=== PATIENT | male | born 1945 | race Caucasian/White ===

== ENCOUNTER → 2016-10-25 | Outpatient (CLI) | payer BC ==
[~2016-10-25] MED LIST: ALBUAER19 INH; ASPCH81X PO; ATEN-173 PO; ATOR-24 PO; CETI10TA84 PO; CIPR1TAB11 PO; CLOP1TAB54 PO; DEXT30TA7 PO; DOCU100C31 PO; ERGO500037 PO; FOLI400T41 PO; GLIP2.5T11 PO; GLIP2.5T5 PO; LOSA100T2 PO; METF-384 PO; METR0.7536 EXT; METR1GEL3 TOP; NITR0.4S UT; NRN300 PO; PHEN-876 PO; POLY335019 PO; SYMIN160 INH; TAMS0.4C38 PO; TRAM-10 PO; [UNRECOGNIZED DRUG - CODE] EXT
--- NOTE | 2016-10-25 12:42 | DIAGNOSTIC IMAGING REPORT ---
KUB HISTORY: NEPHROLITHIASIS N20.0 COMPARISON: KUB 06/04/2016. FINDINGS: The bowel gas pattern is unremarkable. There are no dilated loops of small bowel to suggest an obstruction. The ureteral stents again removed. There is a 7 mm stone within the lower pole the left kidney. This has decreased in size. No definite right renal calculi identified. Of note, the right renal shadow is partially obscured by overlying bowel gas. No ureteral calculi. Calcifications in the deep pelvis likely represent phleboliths. No pneumoperitoneum or pneumatosis. IMPRESSION: 1. Decrease in size in the 7 mm stone within the left kidney. 2. No definite right renal or ureteral calculi identified. Electronically signed by: Santino Del Cid M.D. 10/25/2016 12:41 PM Dictated Date/Time: 10/25/2016 12:38 PM
== END | disposition home or self-care (01) ==
LOC: C.RAD 12:02
PROVIDERS: ATTEND Urology
DX: N20.0 Calculus of kidney (principal)

== ENCOUNTER → 2016-10-26 | Outpatient (CLI) | payer BC | END | disposition home or self-care (01) | LOC: C.LAB 09:07 | PROVIDERS: ATTEND Nurse Practitioner Family | DX: Z11.59 Encounter for screening for other viral diseases (principal); R31.0 Gross hematuria ==

== ENCOUNTER → 2016-10-28 | Outpatient (CLI) | payer BC ==
--- NOTE | 2016-10-28 11:30 | DIAGNOSTIC IMAGING REPORT ---
RENAL ULTRASOUND CLINICAL HISTORY: Gross hematuria. COMPARISON STUDY: Renal ultrasound May 25, 2016, CT of the abdomen and pelvis June 03, 2016 and KUB October 25, 2016. TECHNIQUE: Sonography of the kidneys and the urinary bladder was performed. FINDINGS: Right kidney measures 11.6 x 4.9 x 5.2 cm and the left measures 12 x 6 x 5.8 cm. There is no hydronephrosis. Bilateral renal calculi are noted, the largest of which is a left-sided calculus that measures approximately 8 mm. There is fatty infiltration of the liver. Both ureteral jets were identified. A 3 mm calcification along the left posterior lateral wall of the bladder probably reflects a phlebolith as shown on prior CT. No renal mass is identified sonography. IMPRESSION: 1. No hydronephrosis. 2. Bilateral nephrolithiasis. 3. 3 mm calcification along the left posterior lateral aspect of the bladder which likely reflects a phlebolith rather than distal ureteral calculus. Electronically signed by: Bharath Turner M.D. 10/28/2016 11:29 AM Dictated Date/Time: 10/28/2016 11:26 AM
== END | disposition home or self-care (01) ==
LOC: C.ULTRBC 10:41
PROVIDERS: ATTEND Urology
DX: R31.0 Gross hematuria (principal)

== ENCOUNTER → 2016-11-10 | Outpatient (CLI) | payer BC ==
--- NOTE | 2016-11-10 14:26 | DIAGNOSTIC IMAGING REPORT ---
ABDOMEN AND PELVIS CT WITHOUT CONTRAST CT DOSE: 1102.46 mGycm HISTORY: Nephrolithiasis. Hematuria. Recent lithotripsy. TECHNIQUE: Multiaxial CT images of the abdomen and pelvis were performed without the use of intravenous and oral contrast according to the standard department stone protocol. COMPARISON STUDY: Abdomen and pelvis CT 06/03/2016. FINDINGS: There is a punctate nonobstructing stone within the upper pole of the right kidney. There are 3 nonobstructing stones within the left kidney with the largest measuring 7 mm. These have decreased in number compared to the prior study. The ureteral stents have been removed. No hydronephrosis. Normal bladder. The ureters are normal in course and caliber. Punctate calcified granuloma within the right middle lobe. There is also a calcified granuloma within the left lower lobe. There is a diverticulum at the second portion of the duodenum. Tiny fat-containing umbilical hernia. The gallbladder is contracted. Hepatic steatosis. There is a coarse calcification within the central liver. The unenhanced spleen, adrenal glands, and pancreas are unremarkable. No retroperitoneal lymphadenopathy. Suboptimal evaluation for bowel pathology due to the lack of intravenous and oral contrast. However, there is no definite bowel wall thickening or obstruction. Normal appendix. IMPRESSION: 1. Slight decrease in number of the bilateral renal calculi. Dominant 7 mm stone within the left kidney persists. 2. No ureteral stones or hydronephrosis. 3. Hepatic steatosis. 4. No definite bowel wall thickening or obstruction. 5. The bilateral ureteral stents again removed. Electronically signed by: Santino Del Cid M.D. 11/10/2016 2:25 PM Dictated Date/Time: 11/10/2016 2:17 PM
== END | disposition home or self-care (01) ==
LOC: C.CTS 13:51
PROVIDERS: ATTEND Urology
DX: N20.0 Calculus of kidney (principal); K76.0 Fatty (change of) liver, not elsewhere classified

== ENCOUNTER → 2017-01-19 | Outpatient (CLI) | payer BC | END | disposition home or self-care (01) | LOC: C.LAB1850 08:21 | PROVIDERS: ATTEND Urology | DX: Z00.00 Encounter for general adult medical examination without abnormal findings (principal); N40.0 Benign prostatic hyperplasia without lower urinary tract symptoms ==

== ENCOUNTER 2017-01-26 09:21 | Inpatient (IN) | payer BC, OTHER ==
[~2017-01-26] VITALS: Ht 180.3 cm; Wt 109.6 kg
[~2017-01-26 09:21] MED LIST changes: -GLIP2.5T5 PO; -METR0.7536 EXT; -NRN300 PO; -[UNRECOGNIZED DRUG - CODE] EXT
--- NOTE | 2017-01-26 09:43 | EMERGENCY ROOM VISIT NOTE ---
History Report prepared by Aby: Davis Bryant Under the Supervision of: Dr. Giancarlo Andrade D.O. First contact with patient: 09:33 Chief Complaint: STROKE SYMPTOMS Stated Complaint: RIGHT SIDE OF BODY NUMBNESS/TINGLING History of Present Illness The patient is a 71 year old male who presents to the Emergency Room with complaints of resolving stroke symptoms that started around 0 last night. He says that he started getting numbness in his fingers, which moved to the right side of his face. The numbness then moved into his tongue, and then moved down his right leg and toes. Per the patient's , the patient has had to use a cane to walk, and he normally walks without a cane. The patient says that his foot is not dragging, and he is just using the cane to be safe. The patient's notes that the patient's speech has been normal. This morning, the patient says that his numbness is not that bad. He denies any headaches, weakness, nausea, or vomiting. The patient notes that his blood pressure and blood sugars were fine last night. The patient called his primary care physician's office, and was recommended to be seen here for evaluation. He does have multiple sclerosis. The patient has no history of a stroke. He takes Glipizide, Metformin , and a blood thinner daily. Source of History: patient Onset: 1829 last night Position: other (global - stroke symptoms) Timing: other (resolving) Associated Symptoms: + numbness (right sided), No headache, No nausea, No vomiting, No weakness Note: Associated symptoms: Has had to use cane to walk since last night. Denies foot dragging, slurred speech. Review of Systems See HPI for pertinent positives & negatives. A total of 10 systems reviewed and were otherwise negative. Past Medical & Surgical Medical Problems: (1) Diabetes (2) Heart disease (3) Hypertension (4) Kidney disease Surgical Problems: (1) History of hernia repair (2) Previous back surgery Family History Cancer Diabetes mellitus Gallbladder disease Heart disease Hypertension Social History Smoking Status: Never Smoker Alcohol Use: occasionally Drug Use: none Marital Status: Housing Status: lives with significant other Occupation Status: unemployed Current/Historical Medications Scheduled Aspirin (Aspirin Chewable), 81 MG PO ON HOLD Atenolol (Tenormin), 25 MG PO QPM Atorvastatin (Lipitor), 40 MG PO HS Clopidogrel Bisulfate (Plavix), 75 MG PO ON HOLD Dextromethorphan-Guaifenesin (Mucinex Dm), 1 TAB PO PRN Ergocalciferol (Vitamin D 91250 Unit), 50,000 UNIT PO WK Erythromycin (Erythromycin), 1 APPLN EXT BID Folic Acid (Folvite), 800 MCG PO ON HOLD Glipizide-Metformin Hcl (Glipizide/Metformin Hcl), 1 TAB PO BID Losartan Potassium & Hydrochlo (Hyzaar), 1 TAB PO QAM Metronidazole (Topical) (Metronidazole), 1 APPLN EXT BID Nitroglycerin (Nitrostat), 0.4 MG UT PRN Allergies Coded Allergies: Iodinated Diagnostic Agents (Verified Allergy, Severe, ANAPHYLAXIS, ) [place] (Verified Allergy, Severe, SWELLING TONGUE SOB, 01/26/17) Simvastatin (Verified Adverse Reaction, Unknown, UNKNOWN, 01/26/17) Physical Exam Vital Signs Date Time Temp Pulse Resp B/P Pulse Ox O2 Delivery O2 Flow Rate FiO2 01/26/17 11:45 96 Room Air 01/26/17 11:39 146/88 01/26/17 10:15 57 18 164/90 01/26/17 09:37 64 01/26/17 09:24 36.6 85 18 161/91 96 Room Air Physical Exam GENERAL: Patient is awake, alert, and in no acute distress. Patient is resting comfortably and showing no signs of anxiety EYES: The conjunctivae are clear. The pupils are round and reactive. EARS, NOSE, MOUTH AND THROAT: The nose is without any evidence of any deformity. Mucous membranes are moist tongue is midline NECK: The neck is nontender and supple. No bruits noted to auscultation. RESPIRATORY: Normal respiratory effort is noted there is no evidence of wheezing rhonchi or rales CARDIOVASCULAR: Regular rate and rhythm noted there no murmurs rubs or gallops normal S1 normal S2 GASTROINTESTINAL: The abdomen is soft. Bowel sounds are present in all quadrants. Abdomen is nontender MUSCULOSKELETAL/EXTREMITIES: There is no evidence of gross deformity full range of motion is noted in the hips and shoulders SKIN: There is no obvious evidence of any rash. There are no petechiae, pallor or cyanosis noted. NEUROLOGIC: Patient awake, alert, oriented x3. Speech was mildly thick but understandable. Speech was at baseline according to significant other. No facial droop noted, blacking wheel tender strength was symmetric. No drift noted in upper extremities. Strength in lower extremities appeared symmetric. Medical Decision & Procedures ER Provider Diagnostic Interpretation: Radiology results as stated below per my review and radiologist interpretation: HEAD CT NONCONTRAST CT DOSE: 537.48 mGy.cm HISTORY: Mental status change Stroke TECHNIQUE: Multiaxial CT images of the head were performed without the use of intravenous contrast. Comparison: 03/11/2016 Findings: The paranasal sinuses and mastoid air cells are clear. Possible small subacute infarct posterior left frontal cortex. This measures no more 1 cm. Density characteristics otherwise are unremarkable throughout. Ventricular system is midline. There is no acute intracranial hemorrhage. Impression: Possible small subacute cortical infarct left posterior frontal lobe. No evidence for acute intracranial hemorrhage Electronically signed by: Nasir Fitzgerald M.D. 01/26/2017 10:03 AM Dictated Date/Time: 01/26/2017 10:01 AM SINGLE VIEW CHEST CLINICAL HISTORY: Strokelike symptoms. FINDINGS: An AP, portable, upright chest radiograph is compared to study dated 12/16/2015 and correlated with chest CT dated 12/26/2008. The examination is mildly degraded by portable technique and patient rotation. The heart is mildly enlarged. The pulmonary vasculature is noncongested. There is mild bibasilar atelectasis and elevation of the right hemidiaphragm. The lungs and pleural spaces are otherwise clear. No pneumothorax is seen. The bony thorax is grossly intact. IMPRESSION: Mild cardiac enlargement with no acute cardiopulmonary abnormality. Electronically signed by: Eugenio Mason M.D. 01/26/2017 9:55 AM Dictated Date/Time: 01/26/2017 9:54 AM Laboratory Results 01/26/17 09:35 Red Blood Count 5.17, Mean Corpuscular Volume 87.2, Mean Corpuscular Hemoglobin 29.4, Mean Corpuscular Hemoglobin Concent 33.7, Mean Platelet Volume 11.1, Neutrophils (%) (Auto) 47.9, Lymphocytes (%) (Auto) 39.9, Monocytes (%) (Auto) 8.9, Eosinophils (%) (Auto) 2.9, Basophils (%) (Auto) 0.3, Neutrophils # (Auto) 3.62, Lymphocytes # (Auto) 3.01, Monocytes # (Auto) 0.67, Eosinophils # (Auto) 0.22, Basophils # (Auto) 0.02 01/26/17 09:35 Test 01/26/17 09:35 White Blood Count 7.55 K/uL (4.8-10.8) Red Blood Count 5.17 M/uL (4.7-6.1) Hemoglobin 15.2 g/dL (14.0-18.0) Hematocrit 45.1 % (42-52) Mean Corpuscular Volume 87.2 fL (80-100) Mean Corpuscular Hemoglobin 29.4 pg (25-34) Mean Corpuscular Hemoglobin Concent 33.7 g/dl (32-36) Platelet Count 218 K/uL (130-400) Mean Platelet Volume 11.1 fL (7.4-10.4) Neutrophils (%) (Auto) 47.9 % Lymphocytes (%) (Auto) 39.9 % Monocytes (%) (Auto) 8.9 % Eosinophils (%) (Auto) 2.9 % Basophils (%) (Auto) 0.3 % Neutrophils # (Auto) 3.62 K/uL (1.4-6.5) Lymphocytes # (Auto) 3.01 K/uL (1.2-3.4) Monocytes # (Auto) 0.67 K/uL (0.11-0.59) Eosinophils # (Auto) 0.22 K/uL (0-0.5) Basophils # (Auto) 0.02 K/uL (0-0.2) RDW Standard Deviation 44.4 fL (36.4-46.3) RDW Coefficient of Variation 13.8 % (11.5-14.5) Immature Granulocyte % (Auto) 0.1 % Immature Granulocyte # (Auto) 0.01 K/uL (0.00-0.02) Erythrocyte Sedimentation Rate 6 mm/hr (0-14) Prothrombin Time 10.3 SECONDS (9.0-12.0) Prothromb Time International Ratio 1.0 (0.9-1.1) Activated Partial Thromboplast Time 26.5 SECONDS (21.0-31.0) Partial Thromboplastin Ratio 1.0 Anion Gap 5.0 mmol/L (3-11) Est Creatinine Clear Calc Drug Dose 69.9 ml/min Estimated GFR () 71.1 Estimated GFR (Non- 61.3 BUN/Creatinine Ratio 16.0 (10-20) Estimated Average Glucose 169 mg/dl Hemoglobin A1c 7.5 % (4.5-5.6) Calcium Level 9.1 mg/dl (8.5-10.1) Total Bilirubin 0.7 mg/dl (0.2-1) Direct Bilirubin 0.2 mg/dl (0-0.2) Aspartate Amino Transf (AST/SGOT) 38 U/L (15-37) Alanine Aminotransferase (ALT/SGPT) 61 U/L (12-78) Alkaline Phosphatase 74 U/L (45-117) Total Creatine Kinase 216 U/L (39-308) Creatine Kinase MB 5.0 ng/ml (0.5-3.6) Creatine Kinase MB Ratio 2.3 (0-3.0) Troponin I < 0.015 ng/ml (0-0.045) Total Protein 7.9 gm/dl (6.4-8.2) Albumin 4.4 gm/dl (3.4-5.0) Laboratory results per my review. Medications Administered Medications (Trade) Dose Ordered Sig/Ronak Route Start Time Stop Time Status Last Admin Dose Admin Sodium Chloride (Nss 1000ml) 1,000 ml @ 50 mls/hr Q20H IV 01/26/17 09:35 02/25/17 09:34 01/26/17 14:42 50 MLS/HR ECG Indication: other (stroke symptoms) Rate (beats per minute): 60 Rhythm: normal sinus Findings: no ectopy, other (no acute ST segment abnormalities) Change: no significant change (from August 24 of last year) ED Course 0935: Ordered NSS 1000 ml @ 50 mls/hr IV. 0936: The patient was evaluated in room A3. A complete history and physical examination were performed. 1033: I reevaluated the patient and he is resting comfortably. The patient verbally expressed understanding and agreement with the treatment plan. The patient will be evaluated for further treatment. 1036: I discussed the patient with Dr. Roman Carey [facility] [place] [employer]. He will evaluate the patient for further treatment. Medical Decision Prior records/ancillary studies reviewed and summarized above. Nursing notes reviewed. Additional history obtained from significant other. Differential diagnosis: Etiologies such as metabolic, infection, hypo/hyperglycemia, electrolyte abnormalities, cardiac sources, intracerebral event, toxicologic, neurologic, as well as others were entertained. The patient is a 71-year-old male who presented to the emergency department for an evaluation of right-sided numbness. The patient noticed last evening at approximately 1830 at the right side of his body starting to go numb. He denied any specific weakness but states that he needed help in his right sign. The patient on physical exam did not have extensive weakness is unilateral however his CAT scan showed an area which could be consistent with a subacute infarct in the distribution that would explain the patient's symptoms. I discussed the patient's laboratory and radiographic studies with him. He was treated with IV fluids. The patient has a history of present illness this is most likely secondary to a CVA and not likely due to his MS flare. I discussed this possibility with the patient. I discussed his case with the on-call [facility] hospitalist group. They've agreed to evaluate the patient in the emergency apartment for further management and disposition. Consults Time Called: 1030 Consulting Physician: Dr. Roman TERRAZAS church history professor Returned Call: 1036 I discussed the patient with Dr. Roman TERRAZAS church history professor. He will evaluate the patient for further treatment. Impression Primary Impression: CVA (cerebral vascular accident) Scribe Attestation The scribe's documentation has been prepared under my direction and personally reviewed by me in its entirety. I confirm that the note above accurately reflects all work, treatment, procedures, and medical decision making performed by me. Time Last Known Well 1830 last night Stroke t-PA Criteria Reviewed Does NOT meet criteria for t-PA Reason t-PA Not Given Treatment not indicated (symptoms presented outside of window) Departure Information Dispostion Being Evaluated By Hospitalist Referrals Dee Saldana DO (PCP) Patient Instructions My [facility] Problem Qualifiers Primary Impression: CVA (cerebral vascular accident) CVA mechanism: unspecified Qualified Codes: I63.9 - Cerebral infarction, unspecified
[2017-01-26 09:50] LABS: BASO % 0.3 %; BASO ABS # 0.02 K/uL (0-0.2); COMPLETE YES; EOS % 2.9 %; HEMATOCRIT 45.1 % (42-52); IG% 0.1 %; LYMPH % 39.9 %; LYMPH ABS # 3.01 K/uL (1.2-3.4); MEAN CELL VOLUME 87.2 fL (80-100); MEAN CORPUSCULAR HEMOGLOBIN 29.4 pg (25-34); MEAN CORPUSCULAR HGB CONC 33.7 g/dl (32-36); MEAN PLATELET VOLUME 11.1 fL (7.4-10.4); MONO % 8.9 %; NEUT % 47.9 %; PLATELET COUNT 218 K/uL (130-400); RED BLOOD COUNT 5.17 M/uL (4.7-6.1); WHITE BLOOD COUNT 7.55 K/uL (4.8-10.8)
[2017-01-26] MEDS: SODIUM CHLORIDE 0.9% 1000ML 1,000 ML IV SCH ×2 (09:55→14:42)
--- NOTE | 2017-01-26 09:56 | DIAGNOSTIC IMAGING REPORT ---
SINGLE VIEW CHEST CLINICAL HISTORY: Strokelike symptoms. FINDINGS: An AP, portable, upright chest radiograph is compared to study dated 12/16/2015 and correlated with chest CT dated 12/26/2008. The examination is mildly degraded by portable technique and patient rotation. The heart is mildly enlarged. The pulmonary vasculature is noncongested. There is mild bibasilar atelectasis and elevation of the right hemidiaphragm. The lungs and pleural spaces are otherwise clear. No pneumothorax is seen. The bony thorax is grossly intact. IMPRESSION: Mild cardiac enlargement with no acute cardiopulmonary abnormality. Electronically signed by: Eugenio Mason M.D. 01/26/2017 9:55 AM Dictated Date/Time: 01/26/2017 9:54 AM
[2017-01-26 10:02] LABS: PROTHROMBIN TIME (PATIENT) 10.3 SECONDS (9.0-12.0)
--- NOTE | 2017-01-26 10:05 | DIAGNOSTIC IMAGING REPORT ---
HEAD CT NONCONTRAST CT DOSE: 537.48 mGy.cm HISTORY: Mental status change Stroke TECHNIQUE: Multiaxial CT images of the head were performed without the use of intravenous contrast. Comparison: 03/11/2016 Findings: The paranasal sinuses and mastoid air cells are clear. Possible small subacute infarct posterior left frontal cortex. This measures no more 1 cm. Density characteristics otherwise are unremarkable throughout. Ventricular system is midline. There is no acute intracranial hemorrhage. Impression: Possible small subacute cortical infarct left posterior frontal lobe. No evidence for acute intracranial hemorrhage Electronically signed by: Nasir Fitzgerald M.D. 01/26/2017 10:03 AM Dictated Date/Time: 01/26/2017 10:01 AM
[2017-01-26 10:07] LABS: ALT/SGPT 61 U/L (12-78); AST/SGOT 38 U/L (15-37); BLOOD UREA NITROGEN 19 mg/dl (7-18); CALCIUM 9.1 mg/dl (8.5-10.1); CARBON DIOXIDE 31 mmol/L (21-32); CHLORIDE 107 mmol/L (98-107); GLUCOSE 152 mg/dl (70-99); POTASSIUM 3.9 mmol/L (3.5-5.1); SODIUM 143 mmol/L (136-145)
[2017-01-26 10:13] LABS: ALKALINE PHOSPHATASE 74 U/L (45-117); CKMB/CK RATIO 2.3 (0-3.0)
[2017-01-26] MEDS ORDERED: [UNRECOGNIZED DRUG - CODE] EXT (10:32)
[2017-01-26] MEDS ORDERED: GLIP2.5T5 PO (10:32)
[2017-01-26] MEDS ORDERED: METR0.7536 EXT (10:32)
[2017-01-26] MEDS ORDERED: ACETAMINOPHEN 325 MG TAB PO PRN (11:15)
[2017-01-26] MEDS ORDERED: PHARMACIST DISCHARGE MED REC CONSULT PRN (11:15)
[2017-01-26] MEDS ORDERED: MAGNESIUM HYDROXIDE SUSP 30 ML UDC PO PRN (11:15)
[2017-01-26] MEDS ORDERED: ONDANSETRON INJ 2 MG/ML 2 ML VIAL IV PRN (11:15)
[2017-01-26] MEDS ORDERED: NITROGLYCERIN 0.4 MG SL PER TAB CHARGE UT SCH (11:30)
[2017-01-26 11:45] VITALS: BP 154/76; PULSE 86; TEMP 36.8; O2SAT 96; BMI 30.7
--- NOTE | 2017-01-26 11:45 | History and Physical ---
History & Physical Date & Time of Service: January 26, 2017 at 11:24 Chief Complaint: Right Side Of Body Numbness/Tingling Primary Care Physician: Dee Saldana DO History of Present Illness Source: patient, spouse The patient is a 71 year old male with hx of MS, CAD with stent placed in circumflex in 2009, HTN, dyslipidemia and DM II who presents to the ER with complaints of numbness/tingliness down right arm and right leg and on right side of face that started yesterday evening. Pt reports no issues with swallowing or speech. No weakness, chest pain, shortness of breath, visual changes, N/V/D, fevers or chills. Pt reports numbness and tingliness persists still. Pt has no hx of stroke. Pt is on daily ASA and plavix. He ambulates with cane at home but once again states no weakness. Past Medical/Surgical History Medical Problems: (1) Diabetes Status: Chronic (2) Heart disease Status: Chronic (3) Hypertension Status: Chronic (4) Kidney disease Status: Chronic Surgical Problems: (1) History of hernia repair Status: Resolved (2) Previous back surgery Status: Resolved Family History Cancer Diabetes mellitus Gallbladder disease Heart disease Hypertension Social History Nonsmoker Does not drink Lives with Smoking Status: Never Smoker Smokeless Tobacco Use: No Alcohol Use: none Drug Use: none Marital Status: Housing status: lives with family Occupational Status: unemployed Immunizations History of Influenza Vaccine: Yes Influenza Vaccine Date: Jun 14, 2009 History of Tetanus Vaccine?: utd Tetanus Immunization Date: Jun 13, 2009 History of Pneumococcal: No Pneumococcal Date: Sep 26, 2009 History of Hepatitis B Vaccine: No Multi-Drug Resistant Organisms History of MDRO: No Allergies Coded Allergies: Iodinated Diagnostic Agents (Verified Allergy, Severe, ANAPHYLAXIS, ) Pax (Verified Allergy, Severe, SWELLING TONGUE SOB, 01/26/17) Simvastatin (Verified Adverse Reaction, Unknown, UNKNOWN, 01/26/17) Home Medications Scheduled Aspirin (Aspirin Chewable), 81 MG PO ON HOLD Atenolol (Tenormin), 25 MG PO QPM Atorvastatin (Lipitor), 40 MG PO HS Clopidogrel Bisulfate (Plavix), 75 MG PO ON HOLD Dextromethorphan-Guaifenesin (Mucinex Dm), 1 TAB PO PRN Ergocalciferol (Vitamin D 62209 Unit), 50,000 UNIT PO WK Erythromycin (Erythromycin), 1 APPLN EXT BID Folic Acid (Folvite), 800 MCG PO ON HOLD Glipizide-Metformin Hcl (Glipizide/Metformin Hcl), 1 TAB PO BID Losartan Potassium & Hydrochlo (Hyzaar), 1 TAB PO QAM Metronidazole (Topical) (Metronidazole), 1 APPLN EXT BID Nitroglycerin (Nitrostat), 0.4 MG UT PRN Review of Systems Constitutional: No chills, No fever Eyes: No eye pain, No worsening of vision ENT: No hearing loss, No unusual epistaxis Respiratory: No cough, No sputum, No wheezing Cardiovascular: No chest pain, No orthopnea Abdomen: No nausea, No pain, No vomiting Musculoskeletal: No muscle pain Genitourinary - Male: No dysuria, No hematuria, No urinary frequency Neurologic: + numbness/tingling (right sided), No memory loss, No paralysis Psychiatric: No anxiety, No depression symptoms Endocrine: No excessive thirst, No fatigue Integumentary: No itch, No rash Physical Exam Vital Signs Date Time Temp Pulse Resp B/P Pulse Ox O2 Delivery O2 Flow Rate FiO2 01/26/17 10:15 57 18 164/90 01/26/17 09:37 64 01/26/17 09:24 36.6 85 18 161/91 96 Room Air General Appearance: WD/WN, no apparent distress Head: normocephalic, atraumatic Eyes: normal inspection, PERRL Neck: supple, no adenopathy, thyroid normal, no JVD Respiratory/Chest: chest non-tender, lungs clear, normal breath sounds, no respiratory distress Cardiovascular: regular rate, rhythm, no edema, no gallop Abdomen/GI: normal bowel sounds, non tender, soft, no organomegaly Back: normal inspection, no CVA tenderness, no muscle spasm, normal range of motion Extremities/Musculoskelatal: normal inspection, no calf tenderness, normal capillary refill, no pedal edema Neurologic/Psych: automatic data processing planner II-XII nml as tested, alert, normal mood/affect, oriented x 3, + sensory deficit (periorally on right side of lip, down right arm and down right leg tingliness, decreased sensation) Skin: normal color, warm/dry, no rash Diagnostics Laboratory Results Results Past 24 Hours Test 01/26/17 09:35 01/26/17 11:14 Range/Units White Blood Count 7.55 4.8-10.8 K/uL Red Blood Count 5.17 4.7-6.1 M/uL Hemoglobin 15.2 14.0-18.0 g/dL Hematocrit 45.1 42-52 % Mean Corpuscular Volume 87.2 80-100 fL Mean Corpuscular Hemoglobin 29.4 25-34 pg Mean Corpuscular Hemoglobin Concent 33.7 32-36 g/dl Platelet Count 218 130-400 K/uL Mean Platelet Volume 11.1 7.4-10.4 fL Neutrophils (%) (Auto) 47.9 % Lymphocytes (%) (Auto) 39.9 % Monocytes (%) (Auto) 8.9 % Eosinophils (%) (Auto) 2.9 % Basophils (%) (Auto) 0.3 % Neutrophils # (Auto) 3.62 1.4-6.5 K/uL Lymphocytes # (Auto) 3.01 1.2-3.4 K/uL Monocytes # (Auto) 0.67 0.11-0.59 K/uL Eosinophils # (Auto) 0.22 0-0.5 K/uL Basophils # (Auto) 0.02 0-0.2 K/uL RDW Standard Deviation 44.4 36.4-46.3 fL RDW Coefficient of Variation 13.8 11.5-14.5 % Immature Granulocyte % (Auto) 0.1 % Immature Granulocyte # (Auto) 0.01 0.00-0.02 K/uL Prothrombin Time 10.3 9.0-12.0 SECONDS Prothromb Time International Ratio 1.0 0.9-1.1 Activated Partial Thromboplast Time 26.5 21.0-31.0 SECONDS Partial Thromboplastin Ratio 1.0 Sodium Level 143 136-145 mmol/L Potassium Level 3.9 3.5-5.1 mmol/L Chloride Level 107 98-107 mmol/L Carbon Dioxide Level 31 21-32 mmol/L Anion Gap 5.0 3-11 mmol/L Blood Urea Nitrogen 19 7-18 mg/dl Creatinine 1.20 0.60-1.40 mg/dl Est Creatinine Clear Calc Drug Dose 69.9 ml/min Estimated GFR () 71.1 Estimated GFR (Non- 61.3 BUN/Creatinine Ratio 16.0 10-20 Random Glucose 152 70-99 mg/dl Calcium Level 9.1 8.5-10.1 mg/dl Total Bilirubin 0.7 0.2-1 mg/dl Direct Bilirubin 0.2 0-0.2 mg/dl Aspartate Amino Transf (AST/SGOT) 38 15-37 U/L Alanine Aminotransferase (ALT/SGPT) 61 12-78 U/L Alkaline Phosphatase 74 45-117 U/L Total Creatine Kinase 216 39-308 U/L Creatine Kinase MB 5.0 0.5-3.6 ng/ml Creatine Kinase MB Ratio 2.3 0-3.0 Troponin I < 0.015 0-0.045 ng/ml Total Protein 7.9 6.4-8.2 gm/dl Albumin 4.4 3.4-5.0 gm/dl Impression Assessment and Plan Pt is 71 yo male with hx of MS, CAD with stent placed in circumflex in 2009, HTN , dyslipidemia, and DM II who presents with numbness and tingliness x 1 day on right arm and leg and down right side of face Numbness and tingliness possibly secondary to small subacute cortical infarct left posterior frontal lobe noted on CT head. Will need to obtain MRI/MRA head and neck as well in addition to ECHO. Will cont on ASA, statin and plavix at this time. Obtain lipid panel and HgA1c. Keep permissive HTN at this time. Will consult neurology. ?MS flare, will leave to neurology to initiate steroids if indicated. DM II will hold off on PO agents and utilize ISS. Obtain HgA1c at this time CAD with stent placed in circumflex in 2009, cont ASA, plavix, statin, hold of on antihypertensives HTN will hold off on antihypertensives. Allow for permissive HTN MS consult neurology as above Pt is FULL CODE
[2017-01-26] MEDS ORDERED: GLUCAGON FOR INJ 1 MG VIAL SQ PRN (12:00)
[2017-01-26] MEDS ORDERED: DEXTROSE 50% 50 ML SYR IV PRN (12:00)
[2017-01-26] MEDS ORDERED: GLUCOSE 40% GEL 15 GM TUBE PO PRN (12:00)
[2017-01-26] MEDS ORDERED: GLUCOSE 10 TABS/TUBE PO PRN (12:00)
[2017-01-26 12:42] LABS: ESTIMATED AVERAGE GLUCOSE 169 mg/dl; HA1C FLAG Normal (Normal)
[2017-01-26] MEDS ORDERED: GADAVIST IV PRN (13:15)
--- NOTE | 2017-01-26 13:20 | DIAGNOSTIC IMAGING REPORT ---
NECK MRA HISTORY: Right-sided numbness. Stroke TECHNIQUE: [id number] and gadolinium-enhanced MRA of the neck was performed both before and after the intravenous administration of contrast. All measurements were calculated based on NASCET criteria. COMPARISON STUDY: Carotid Doppler 03/26/2011. FINDINGS: The aortic arch and proximal great vessels are widely patent. There is no significant stenosis, occlusion, or dissection identified within the bilateral common carotid, internal carotid, or left vertebral arteries. Focal area of high-grade stenosis within the intracranial portion of the distal right vertebral artery. The cervical portion of the right vertebral artery is widely patent. IMPRESSION: No significant stenosis, occlusion, or dissection identified within the carotid or left vertebral arteries. Focal area of high-grade stenosis within the intracranial portion of the distal right vertebral artery. Electronically signed by: Santino Del Cid M.D. 01/26/2017 1:19 PM Dictated Date/Time: 01/26/2017 1:15 PM
--- NOTE | 2017-01-26 13:26 | DIAGNOSTIC IMAGING REPORT ---
Brain MRI WITH AND WITHOUT CONTRAST HISTORY: Right-sided numbness. Stroke TECHNIQUE: Multiplanar multisequence MRI of the brain was performed both before and after the intravenous administration of contrast. COMPARISON STUDY: Head CT 01/26/2017. Brain MRI 04/27/2013. FINDINGS: There is an 8 mm linear focus of restricted diffusion seen within the left thalamus. This is consistent with a small acute infarct. There are few scattered punctate foci of T2 hyperintensity seen within the periventricular white matter. These are nonspecific but favor mild microvascular ischemic change. Trace fluid within a few of the inferior mastoid air cells. The major vascular flow-voids at the skull base are well-maintained. The ventricles and sulci are within normal limits for age. No abnormal enhancement. IMPRESSION: 1. A small acute infarct within the left thalamus. 2. A few scattered punctate foci of nonspecific T2 hyperintensity within the periventricular white matter. These favor mild microvascular ischemic change. A demyelinating disease could also have a similar appearance but is considered less likely. Electronically signed by: Santino Del Cid M.D. 01/26/2017 1:25 PM Dictated Date/Time: 01/26/2017 1:19 PM
[2017-01-26 15:33] VITALS: BP 161/89; PULSE 54; TEMP 36.6; O2SAT 95
[2017-01-26 16:16] VITALS: Ht 180.3 cm; Wt 109.6 kg
[2017-01-26] MEDS: CLOPIDOGREL BISULFATE 75 MG TAB PO SCH (19:35)
[2017-01-26] MEDS: ASPIRIN 81 MG ECTAB PO SCH (19:35)
[2017-01-26] MEDS: ATORVASTATIN 40 MG TAB PO SCH (19:36)
[2017-01-26] MEDS: INSULIN ASPART 100 UNITS/ML 3 ML PEN SC SCH ×2 (19:38→20:58)
[2017-01-26 20:00] VITALS: O2SAT 94
[2017-01-26 20:28] VITALS: BP 162/82; PULSE 57; TEMP 36.4; O2SAT 94
[2017-01-27] VITALS (9 sets, daily range): BP systolic 125–162; BP diastolic 72–83; PULSE 53–66; TEMP 36.5–36.9; O2SAT 93–99
[2017-01-27 00:31] LABS: URINE APPEARANCE CLEAR (CLEAR); URINE BILIRUBIN NEG (NEG); URINE COLOR YELLOW; URINE EPITHELIAL CELL AUTO 0-5 /lpf (0-5); URINE NITRITE NEG (NEG); UROBILINOGEN NEG (NEG); ZZUR CULT IF INDIC CLEAN CATCH NO
[2017-01-27 00:50] LABS: MANUAL MICROSCOPIC REQUIRED? NO; REVIEW REQ? NO
[2017-01-27 07:00] LABS: BASO % 0.1 %; BASO ABS # 0.01 K/uL (0-0.2); COMPLETE YES; EOS % 3.4 %; HEMATOCRIT 44.7 % (42-52); IG% 0.1 %; LYMPH % 38.6 %; LYMPH ABS # 2.86 K/uL (1.2-3.4); MEAN CELL VOLUME 87.1 fL (80-100); MEAN CORPUSCULAR HEMOGLOBIN 28.1 pg (25-34); MEAN CORPUSCULAR HGB CONC 32.2 g/dl (32-36); MEAN PLATELET VOLUME 10.6 fL (7.4-10.4); NEUT % 49.8 %; PLATELET COUNT 217 K/uL (130-400); RED BLOOD COUNT 5.13 M/uL (4.7-6.1)
[2017-01-27 07:33] LABS: BUN/CREATININE RATIO 14.9 (10-20); CALCIUM 8.5 mg/dl (8.5-10.1); CREATININE 1.1 mg/dl (0.60-1.40)
[2017-01-27 07:37] LABS: CHOLESTEROL/HDL RATIO 6.2
--- NOTE | 2017-01-27 08:59 | Neurology Consultation ---
Neurology Consultation Date of Consultation: January 27, 2017. Attending Physician: Anurag Owens D.O. Primary Care Physician: Dee Saldana DO Reason for Consultation: stroke History of Present Illness Source: patient, hospital records 71 year old male with a chief complaint of numbness, entire right side, improving, began two nights ago, associated right leg/foot heaviness/feeling of weakness, resolved, no associated headache, vision change, or speech change. PMH DM, HTN, CAD, "MS" currently Rx'd ASA/Plavix Brain MRI reveals a small acute left thalamic infarct. Images reviewed. There is evidence of a moderate degree of chronic, scattered, white matter hyperintensities on T2/FLAIR sequences, quite nonspecific and certainly not suggestive of multiple sclerosis, especially in this age group. ECG, sinus bradycardia, 57 bpm Outpatient records reviewed including consult with Dr. Jin at [facility] regarding "MS" which was felt to be very unlikely. CSF analysis was completed at our institution in 2010. Although the results do reveal the presence of 5 gamma restriction bands not present in the corresponding serum, there is no elevation in CSF myelin basic protein or evidence of increased IgG synthesis. This finding was reviewed by Dr. Jin as well in his consultation. Past Medical/Surgical History Medical Problems: (1) CVA (cerebral vascular accident) Status: Acute (2) Intractable pain Status: Acute Family History DM, HTN Social History Smoking Status: Never smoker Smokeless Tobacco Use: No Alcohol Use: none Drug Use: none Marital Status: Housing Status: lives with significant other Occupation Status: unemployed Allergies Coded Allergies: Iodinated Diagnostic Agents (Verified Allergy, Severe, ANAPHYLAXIS, ) [place] (Verified Allergy, Severe, SWELLING TONGUE SOB, 01/26/17) Simvastatin (Verified Adverse Reaction, Unknown, UNKNOWN, 01/26/17) Current Inpatient Medications Current Inpatient Medications Medications (Trade) Dose Ordered Sig/Ronak Route Start Time Stop Time Status Last Admin Dose Admin Sodium Chloride (Nss 1000ml) 1,000 ml @ 50 mls/hr Q20H IV 01/26/17 09:35 02/25/17 09:34 01/26/17 14:42 50 MLS/HR Aspirin (Ecotrin Tab) 81 mg QAM PO 01/27/17 09:00 02/26/17 08:59 01/26/17 19:35 81 MG Miscellaneous Information (Pharmacist Discharge Med Rec Consult) 1 ea UD PRN N/A 01/26/17 11:15 02/25/17 11:14 Acetaminophen (Tylenol Tab) 650 mg Q4H PRN PO 01/26/17 11:15 02/25/17 11:14 Magnesium Hydroxide (Milk Of Magnesia Susp) 30 ml Q12H PRN PO 01/26/17 11:15 02/25/17 11:14 Ondansetron HCl (Zofran Inj) 4 mg Q6H PRN IV 01/26/17 11:15 02/25/17 11:14 Atorvastatin Calcium (Lipitor Tab) 40 mg HS PO 01/26/17 21:00 02/25/17 20:59 01/26/17 19:36 40 MG Clopidogrel Bisulfate (plAVix TAB) 75 mg DAILY PO 01/27/17 09:00 02/26/17 08:59 01/26/17 19:35 75 MG Nitroglycerin (Nitrostat Tab) 0.4 mg PRN UT 01/26/17 11:30 02/25/17 11:29 Insulin Aspart (novoLOG ASPART) SLIDING SCALE If C... ACHS SC 01/26/17 16:15 02/25/17 16:14 01/26/17 19:38 3 UNITS Glucose (Glucose 40% Gel) 15-30 GRAMS 15 GRAMS... UD PRN PO 01/26/17 12:00 02/25/17 11:59 Glucose (Glucose Chew Tab) 4-8 Tablets 4 Tabl... UD PRN PO 01/26/17 12:00 02/25/17 11:59 Dextrose (Dextrose 50% 50ML Syringe) 25-50ML OF 50% DW IV FOR... UD PRN IV 01/26/17 12:00 02/25/17 11:59 Glucagon (Glucagon Inj) 1 mg UD PRN SQ 01/26/17 12:00 02/25/17 11:59 Gadobutrol (Gadavist) 11 mmol UD PRN IV 01/26/17 13:15 01/30/17 13:14 Review of Systems A full 10 point review of systems was obtained from this patient with pertinent positives and negatives described in the history of present illness. All other systems are negative. Physical Exam Vital Signs (Past 24 Hrs): Date Time Temp Pulse Resp B/P Pulse Ox O2 Delivery O2 Flow Rate FiO2 01/27/17 08:07 36.9 56 18 140/83 96 01/27/17 04:00 96 Room Air 01/27/17 03:33 36.5 53 16 125/75 96 Nasal Cannula 2.0 01/27/17 00:03 36.5 56 16 156/77 98 Nasal Cannula 2.0 01/27/17 00:00 98 Nasal Cannula 2.0 01/26/17 20:28 36.4 57 18 162/82 94 Room Air 01/26/17 20:00 94 Room Air 01/26/17 16:00 Room Air 01/26/17 15:33 36.6 54 18 161/89 95 Room Air 01/26/17 11:45 36.8 86 18 154/76 96 Room Air 01/26/17 11:39 146/88 01/26/17 10:15 57 18 164/90 01/26/17 09:37 64 01/26/17 09:24 36.6 85 18 161/91 96 Room Air The patient is a well-developed, well-nourished, elderly male, no acute distress. He is alert and oriented to person place and time. Attention and concentration normal. Recent and remote memory intact. He is able to name objects and repeat phrases. Read simple text without difficulty. Fund of knowledge and vocabulary normal. Visual polanco full to confrontation. Pupils equal round reactive to light and accommodation. Eye movements normal. There is no nystagmus. Facial sensation intact bilaterally. There is no facial weakness or facial droop. Palate elevates to midline. Tongue protrudes to midline. Shoulder shrug and hearing intact bilaterally. Sensation is intact to light touch, temperature, vibration, and proprioception for all 4 limbs. I did not appreciate a hemisensory deficit at this time. Deep tendon reflexes are generally diminished, especially at the Achilles tendons. Plantar responses are silent. There is no dysmetria with finger to nose or heel to torre bilaterally. Ophthalmoscopic examination reveals normal-appearing optic nerves and posterior elements. No papilledema or hemorrhages. Carotid pulses normal bilaterally, no bruits to auscultation. Musculoskeletal examination reveals normal strength and tone for all 4 limbs. No atrophy. No abnormal movements. Gait and station normal. mild length dependent sensory loss and generally reduced DTR's, otherwise normal Laboratory Results Past 24 Hours: 01/27/17 06:35 Red Blood Count 5.13, Mean Corpuscular Volume 87.1, Mean Corpuscular Hemoglobin 28.1, Mean Corpuscular Hemoglobin Concent 32.2, Mean Platelet Volume 10.6, Neutrophils (%) (Auto) 49.8, Lymphocytes (%) (Auto) 38.6, Monocytes (%) (Auto) 8.0, Eosinophils (%) (Auto) 3.4, Basophils (%) (Auto) 0.1, Neutrophils # (Auto) 3.68, Lymphocytes # (Auto) 2.86, Monocytes # (Auto) 0.59, Eosinophils # (Auto) 0.25, Basophils # (Auto) 0.01 01/27/17 06:35 Test 01/26/17 09:35 01/27/17 00:05 01/27/17 00:40 01/27/17 06:35 Erythrocyte Sedimentation Rate 6 mm/hr (0-14) Prothrombin Time 10.3 SECONDS (9.0-12.0) Prothromb Time International Ratio 1.0 (0.9-1.1) Activated Partial Thromboplast Time 26.5 SECONDS (21.0-31.0) Partial Thromboplastin Ratio 1.0 Estimated Average Glucose 169 mg/dl Hemoglobin A1c 7.5 % (4.5-5.6) Total Bilirubin 0.7 mg/dl (0.2-1) Direct Bilirubin 0.2 mg/dl (0-0.2) Aspartate Amino Transf (AST/SGOT) 38 U/L (15-37) Alanine Aminotransferase (ALT/SGPT) 61 U/L (12-78) Alkaline Phosphatase 74 U/L (45-117) Total Creatine Kinase 216 U/L (39-308) Creatine Kinase MB 5.0 ng/ml (0.5-3.6) Creatine Kinase MB Ratio 2.3 (0-3.0) Total Protein 7.9 gm/dl (6.4-8.2) Albumin 4.4 gm/dl (3.4-5.0) Urine Color YELLOW Urine Appearance CLEAR (CLEAR) Urine pH 5.0 (4.5-7.5) Urine Specific [place] 1.010 (1.000-1.030) Urine Protein NEG (NEG) Urine Glucose (UA) NEG (NEG) Urine Ketones NEG (NEG) Urine Occult Blood TRACE (NEG) Urine Nitrite NEG (NEG) Urine Bilirubin NEG (NEG) Urine Urobilinogen NEG (NEG) Urine Leukocyte Esterase NEG (NEG) Urine WBC (Auto) 1-5 /hpf (0-5) Urine RBC (Auto) 0-4 /hpf (0-4) Urine Hyaline Casts (Auto) 0 /lpf (0-5) Urine Epithelial Cells (Auto) 0-5 /lpf (0-5) Urine Bacteria (Auto) NEG (NEG) Troponin I < 0.015 ng/ml (0-0.045) White Blood Count 7.40 K/uL (4.8-10.8) Red Blood Count 5.13 M/uL (4.7-6.1) Hemoglobin 14.4 g/dL (14.0-18.0) Hematocrit 44.7 % (42-52) Mean Corpuscular Volume 87.1 fL (80-100) Mean Corpuscular Hemoglobin 28.1 pg (25-34) Mean Corpuscular Hemoglobin Concent 32.2 g/dl (32-36) Platelet Count 217 K/uL (130-400) Mean Platelet Volume 10.6 fL (7.4-10.4) Neutrophils (%) (Auto) 49.8 % Lymphocytes (%) (Auto) 38.6 % Monocytes (%) (Auto) 8.0 % Eosinophils (%) (Auto) 3.4 % Basophils (%) (Auto) 0.1 % Neutrophils # (Auto) 3.68 K/uL (1.4-6.5) Lymphocytes # (Auto) 2.86 K/uL (1.2-3.4) Monocytes # (Auto) 0.59 K/uL (0.11-0.59) Eosinophils # (Auto) 0.25 K/uL (0-0.5) Basophils # (Auto) 0.01 K/uL (0-0.2) RDW Standard Deviation 43.5 fL (36.4-46.3) RDW Coefficient of Variation 13.6 % (11.5-14.5) Immature Granulocyte % (Auto) 0.1 % Immature Granulocyte # (Auto) 0.01 K/uL (0.00-0.02) Anion Gap 7.0 mmol/L (3-11) Est Creatinine Clear Calc Drug Dose 79.8 ml/min Estimated GFR () 79.0 Estimated GFR (Non- 68.1 BUN/Creatinine Ratio 14.9 (10-20) Calcium Level 8.5 mg/dl (8.5-10.1) Triglycerides Level 237 mg/dl (0-150) Cholesterol Level 179 mg/dl (0-200) HDL Cholesterol 29 mg/dl LDL Cholesterol, Calculated 103 mg/dl VLDL Cholesterol, Calculated 47 mg/dl Cholesterol/HDL Ratio 6.2 Test 01/27/17 07:14 Bedside Glucose 181 mg/dl (70-99) Impression Acute small left thalamic infarct. Improving right hemisensory loss. Prognosis good. This patient most likely does not have MS. Plan Continue current antiplatelet regimen. Patient has been on both aspirin and Plavix for quite some time and seems to be tolerating dual antiplatelet therapy well. I would not recommend starting therapy for multiple sclerosis as this diagnosis seems unlikely and has been placed in doubt by Dr. Olivo, an MS specialist, now retired, [facility]. I do not have any further specific recommendations for this patient. He may follow-up in neurology clinic for additional surveillance. Please contact me if I may be of further assistance.
[2017-01-27] MEDS ORDERED: ASPIRIN 81 MG CHEW PO SCH (09:00)
[2017-01-27] MEDS: INSULIN ASPART 100 UNITS/ML 3 ML PEN SC SCH ×4 (09:03→21:32)
[2017-01-27] MEDS: CLOPIDOGREL BISULFATE 75 MG TAB PO SCH (11:52)
[2017-01-27] MEDS: ASPIRIN 81 MG ECTAB PO SCH (11:52)
--- NOTE | 2017-01-27 12:40 | Progress Note ---
Subjective Date of Service: January 27, 2017. Subjective Pt evaluation today including: conversation w/ patient, conversation w/ family , physical exam, chart review, lab review, review of studies, review of inpatient medication list Pt resting comfortably in bed States right sided numbness about the same Worsening tingliness though this afternoon in extremities Not comfortable for discharge No acute events overnight Problem List Medical Problems: (1) CVA (cerebral vascular accident) Status: Acute (2) Intractable pain Status: Acute Review of Systems Constitutional: No chills, No fever, No sweats, No weight loss Eyes: No discharge, No eye pain, No redness, No worsening of vision ENT: No hearing loss, No nasal symptoms, No sore throat, No unusual epistaxis Respiratory: No cough, No sputum, No wheezing Cardiac: No chest pain, No orthopnea Abdomen: No diarrhea, No nausea, No pain, No vomiting Musculoskeletal: No calf pain, No joint pain, No muscle pain, No swelling Male : No dysuria, No incontinence, No slowing stream, No urinary frequency Neurologic: + numbness/tingling (bilateral hands, and bilateral legs), No memory loss, No paralysis, No weakness Psychiatric: No anhedonism, No anxiety, No depression symptoms Objective Vital Signs Date Time Temp Pulse Resp B/P Pulse Ox O2 Delivery O2 Flow Rate FiO2 01/27/17 12:08 36.8 66 18 144/72 99 01/27/17 08:07 36.9 56 18 140/83 96 01/27/17 08:00 Room Air 01/27/17 04:00 96 Room Air 01/27/17 03:33 36.5 53 16 125/75 96 Nasal Cannula 2.0 01/27/17 00:03 36.5 56 16 156/77 98 Nasal Cannula 2.0 01/27/17 00:00 98 Nasal Cannula 2.0 01/26/17 20:28 36.4 57 18 162/82 94 Room Air 01/26/17 20:00 94 Room Air 01/26/17 16:00 Room Air 01/26/17 15:33 36.6 54 18 161/89 95 Room Air Physical Exam General Appearance: WD/WN, no apparent distress Eyes: normal inspection, PERRL, EOMI, sclerae normal ENT: normal ENT inspection, hearing grossly normal, TMs normal, pharynx normal Neck: supple, no adenopathy, thyroid normal, no JVD Respiratory/Chest: chest non-tender, lungs clear, normal breath sounds, no respiratory distress Cardiovascular: regular rate, rhythm, no edema, no gallop, no JVD Abdomen: normal bowel sounds, non tender, soft, no organomegaly Extremities: normal range of motion, non-tender, normal inspection, no pedal edema Neurologic/Psychiatric: alert, normal mood/affect, oriented x 3, + sensory deficit (numbness and tingliness bilateral arms and legs) Laboratory Results Last 24 Hours Test 01/26/17 16:18 01/26/17 17:18 01/26/17 20:53 01/27/17 00:05 Bedside Glucose 141 mg/dl 124 mg/dl Troponin I < 0.015 ng/ml Urine Color YELLOW Urine Appearance CLEAR Urine pH 5.0 Urine Specific Wolf 1.010 Urine Protein NEG Urine Glucose (UA) NEG Urine Ketones NEG Urine Occult Blood TRACE Urine Nitrite NEG Urine Bilirubin NEG Urine Urobilinogen NEG Urine Leukocyte Esterase NEG Urine WBC (Auto) 1-5 /hpf Urine RBC (Auto) 0-4 /hpf Urine Hyaline Casts (Auto) 0 /lpf Urine Epithelial Cells (Auto) 0-5 /lpf Urine Bacteria (Auto) NEG Test 01/27/17 00:40 01/27/17 06:35 01/27/17 07:14 01/27/17 11:23 Troponin I < 0.015 ng/ml White Blood Count 7.40 K/uL Red Blood Count 5.13 M/uL Hemoglobin 14.4 g/dL Hematocrit 44.7 % Mean Corpuscular Volume 87.1 fL Mean Corpuscular Hemoglobin 28.1 pg Mean Corpuscular Hemoglobin Concent 32.2 g/dl Platelet Count 217 K/uL Mean Platelet Volume 10.6 fL Neutrophils (%) (Auto) 49.8 % Lymphocytes (%) (Auto) 38.6 % Monocytes (%) (Auto) 8.0 % Eosinophils (%) (Auto) 3.4 % Basophils (%) (Auto) 0.1 % Neutrophils # (Auto) 3.68 K/uL Lymphocytes # (Auto) 2.86 K/uL Monocytes # (Auto) 0.59 K/uL Eosinophils # (Auto) 0.25 K/uL Basophils # (Auto) 0.01 K/uL RDW Standard Deviation 43.5 fL RDW Coefficient of Variation 13.6 % Immature Granulocyte % (Auto) 0.1 % Immature Granulocyte # (Auto) 0.01 K/uL Sodium Level 143 mmol/L Potassium Level 4.0 mmol/L Chloride Level 108 mmol/L Carbon Dioxide Level 28 mmol/L Anion Gap 7.0 mmol/L Blood Urea Nitrogen 16 mg/dl Creatinine 1.10 mg/dl Est Creatinine Clear Calc Drug Dose 79.8 ml/min Estimated GFR () 79.0 Estimated GFR (Non- 68.1 BUN/Creatinine Ratio 14.9 Random Glucose 177 mg/dl Calcium Level 8.5 mg/dl Triglycerides Level 237 mg/dl Cholesterol Level 179 mg/dl HDL Cholesterol 29 mg/dl LDL Cholesterol, Calculated 103 mg/dl VLDL Cholesterol, Calculated 47 mg/dl Cholesterol/HDL Ratio 6.2 Bedside Glucose 181 mg/dl 179 mg/dl Assessment and Plan Pt is 71 yo male with hx of MS, CAD with stent placed in circumflex in 2009, HTN , dyslipidemia, and DM II who presents with numbness and tingliness x 1 day on right arm and leg and down right side of face Numbness and tingliness persisting from admission. Noted small cortical acute stroke in left posterior frontal lobe on MRI head. MRA neck No significant stenosis, occlusion, or dissection identified within the carotid or left vertebral arteries. Focal area of high-grade stenosis within the intracranial portion of the distal right vertebral artery. Awaiting ECHO. Cont on ASA, statin and plavix at this time. Neurology consulted, unlikely to have MS and can be discharged from their perspective, unfortunately nerve pain/tingliness worsened, will start on Neurontin DM II will hold off on PO agents and utilize ISS. HgA1c 7.5. Uncontrolled, will need to further manage as outpatient CAD with stent placed in circumflex in 2009, cont ASA, plavix, statin, hold of on antihypertensives to maintain permissive HTN . Stable HTN will hold off on antihypertensives. Allow for permissive HTN Pt is FULL CODE
[2017-01-27] MEDS ORDERED: NURSING VERBAL MED ORDER ONE (12:45)
[2017-01-27] MEDS ORDERED: GABAPENTIN 300 MG CAP PO ONE (13:15)
--- NOTE | 2017-01-27 14:55 | ECHOCARDIOGRAM REPORT ---
*NOTICE TO RECEIVING [employer] This information is strictly Confidential and protected under [place] law. [place] law prohibits you from making any further disclosure of this information unless further disclosure is expressly permitted by the written consent of the person to whom it pertains or is authorized by law. A general authorization for the release of medical or other information is not sufficient for this purpose. Hospital accepts no responsibility if the information is made available to any other person, INCLUDING THE PATIENT. Interpretation Summary * Name: BÁRBARA BRITT Study Date: 01/26/2017 04:37 PM BP: 146/88 mmHg * Patient Location: C.2T\S\E219\S\1 HR: 57 * : 1945 (M/d/yyyy) Gender: Male Height: 71 in * Age: 71 yrs Ethnicity: [place] Weight: 219 lb * Ordering Physician: Anurag Owens * Referring Physician: Self, Referred * Performed By: Padmini Balderas RDCS * * Reason For Study: Stroke * BSA: 2.2 m2 * Compared to prior study, there is no significant change. * No cardiac source of emboli noted. * -- Conclusions -- * Left ventricular systolic function is normal. * Grade I diastolic dysfunction, (abnormal relaxation pattern). Procedure Details * A complete two-dimensional transthoracic echocardiogram was performed (2D, M-mode, Doppler and color flow Doppler). * A saline contrast injection was performed to assess for cardiac shunting. * The injection was performed through an intravenous line in the right arm. * The attending nurse who injected the saline contrast was Venice Gagnon RN. * A total of 20 cc of agitated saline was given. Left Ventricle * The left ventricle is normal in size. * There is normal left ventricular wall thickness. * Ejection Fraction = 60-65%. * Left ventricular systolic function is normal. * Grade I diastolic dysfunction, (abnormal relaxation pattern). Right Ventricle * The right ventricle is normal in size and function. Atria * The left atrial size is normal. * Right atrial size is normal. Mitral Valve * The mitral valve is grossly normal. * There is trace mitral regurgitation. Tricuspid Valve * The tricuspid valve is not well visualized, but is grossly normal. * Significant tricuspid regurgitation is absent. Aortic Valve * Aortic valve sclerosis mild, without significant aortic valvular stenosis. * Left coronary cusp has focal calcification * No hemodynamically significant valvular aortic stenosis. * There is no significant aortic regurgitation. Great Vessels * The aortic root is normal size. Pericardium/Pleural * There is no pericardial effusion. MMode 2D Measurements and Calculations IVSd 0.97 cm LVIDd 4.3 cm LVIDs 3.0 cm LVPWd 1.2 cm IVS/LVPW 0.80 FS 31.4 % EDV(Teich) 84.5 ml ESV(Teich) 34.2 ml EF(Teich) 59.6 % EDV(cubed) 81.3 ml ESV(cubed) 26.2 ml EF(cubed) 67.8 % LV mass(C)d 163.7 grams LV mass(C)dI 74.7 grams/m\S\2 SV(Teich) 50.4 ml SI(Teich) 23.0 ml/m\S\2 SV(cubed) 55.1 ml SI(cubed) 25.1 ml/m\S\2 Ao root diam 3.5 cm Ao root area 9.4 cm\S\2 ACS 1.8 cm LA dimension 2.7 cm asc Aorta Diam 3.2 cm LA/Ao 0.77 LVOT diam 2.0 cm LVOT area 3.2 cm\S\2 LVAd ap4 30.0 cm\S\2 LVLd ap4 7.5 cm EDV(MOD-sp4) 96.0 ml EDV(sp4-el) 101.4 ml LVAs ap4 18.0 cm\S\2 LVLs ap4 6.9 cm ESV(MOD-sp4) 39.1 ml ESV(sp4-el) 39.8 ml EF(MOD-sp4) 59.3 % EF(sp4-el) 60.7 % LVAd ap2 24.2 cm\S\2 LVLd ap2 7.1 cm EDV(MOD-sp2) 70.4 ml EDV(sp2-el) 70.0 ml LVAs ap2 12.7 cm\S\2 LVLs ap2 5.7 cm ESV(MOD-sp2) 23.8 ml ESV(sp2-el) 24.1 ml EF(MOD-sp2) 66.2 % EF(sp2-el) 65.5 % LVLd %diff -6.30 % EDV(MOD-bp) 85.0 ml LVLs %diff -21.69 % ESV(MOD-bp) 33.2 ml EF(MOD-bp) 61.0 % SV(MOD-sp4) 56.9 ml SI(MOD-sp4) 26.0 ml/m\S\2 SV(MOD-sp2) 46.6 ml SI(MOD-sp2) 21.3 ml/m\S\2 SV(MOD-bp) 51.9 ml SI(MOD-bp) 23.7 ml/m\S\2 SV(sp4-el) 61.6 ml SI(sp4-el) 28.1 ml/m\S\2 SV(sp2-el) 45.9 ml SI(sp2-el) 20.9 ml/m\S\2 Doppler Measurements and Calculations MV E max melina 69.4 cm/sec MV A max melina 93.1 cm/sec MV E/A 0.74 MV dec time 0.35 sec Ao V2 max 150.8 cm/sec Ao max PG 9.1 mmHg Ao max PG (full) 3.9 mmHg AMI(V,A) 2.4 cm\S\2 AMI(V,D) 2.4 cm\S\2 LV V1 max PG 5.2 mmHg LV V1 max 114.0 cm/sec PA V2 max 165.6 cm/sec PA max PG 11.0 mmHg PA acc slope 789.5 cm/sec\S\2 PA acc time 0.09 sec PA pr(Accel) 37.8 mmHg
[2017-01-27] MEDS: ATORVASTATIN 40 MG TAB PO SCH (21:29)
[2017-01-27] MEDS: HEPARIN SOD 5000 UNIT/0.5 ML CARP SQ SCH (21:33)
[2017-01-28 00:12] VITALS: BP 168/82; PULSE 58; TEMP 36.7; O2SAT 99
[2017-01-28] MEDS: HEPARIN SOD 5000 UNIT/0.5 ML CARP SQ SCH (05:45)
[2017-01-28] MEDS: CLOPIDOGREL BISULFATE 75 MG TAB PO SCH (07:41)
[2017-01-28] MEDS: ASPIRIN 81 MG ECTAB PO SCH (07:41)
[2017-01-28 07:49] VITALS: BP 161/89; PULSE 55; TEMP 36.7; O2SAT 98
[2017-01-28] MEDS ORDERED: GABAPENTIN 300 MG CAP PO SCH (08:00)
[2017-01-28 08:53] LABS: BASO % 0.3 %; BASO ABS # 0.02 K/uL (0-0.2); COMPLETE YES; EOS % 3.9 %; HEMATOCRIT 45.3 % (42-52); IG% 0.1 %; LYMPH % 32.6 %; LYMPH ABS # 2.26 K/uL (1.2-3.4); MEAN CELL VOLUME 86.8 fL (80-100); MEAN CORPUSCULAR HGB CONC 32.2 g/dl (32-36); MEAN PLATELET VOLUME 10.7 fL (7.4-10.4); MONO % 8.9 %; NEUT % 54.2 %; PLATELET COUNT 221 K/uL (130-400); RED BLOOD COUNT 5.22 M/uL (4.7-6.1); WHITE BLOOD COUNT 6.93 K/uL (4.8-10.8)
[2017-01-28 09:07] LABS: BUN/CREATININE RATIO 15.2 (10-20); CREATININE 1.1 mg/dl (0.60-1.40); POTASSIUM 4.2 mmol/L (3.5-5.1)
[2017-01-28 09:25] LABS: CALCIUM 8.9 mg/dl (8.5-10.1)
[2017-01-28] MEDS: INSULIN ASPART 100 UNITS/ML 3 ML PEN SC SCH ×2 (09:35→12:42)
--- NOTE | 2017-01-28 10:40 | Discharge Instructions ---
Discharge Instructions Date of Service January 28, 2017. Admission Reason for Admission: CVA Discharge Discharge Diagnosis / Problem: acute left posterior frontal lobe cva Discharge Goals Goal(s): Improve function, Increase independence, Improve disease control, Learn about illness Activity Recommendations Activity Limitations: resume your previous activity Lifting Limitations: gradually increase as tolerated Exercise/Sports Limitations: gradually increase as tolerated Shower/Bathe: no limitations Driving or Machine Use: no driving until cleared by neurology . Instructions / Follow-Up Instructions / Follow-Up Risk Factors for Stroke: You can reduce your chances of stroke by working with your medical provider to adopt a healthy lifestyle. Some specific ways to lower your chance of stroke are: * If you are a smoker, now is the time to stop smoking cigarettes * If you are diabetic, improve the control of your blood sugars * Avoid excessive amounts of alcohol * Control high blood pressure * Lose weight if you are overweight * Be sure to lead an active lifestyle * Eat a healthy diet low in salt, cholesterol and fat You should know about other risk factors for stroke that you are unable to control. These include: * Age 55 years or older * Male gender * Certain racial groups: , or / * Family History of Stroke, Mini stroke or Heart Attack * Sickle Cell Disease Follow Up: It is important for you to keep your follow up appointments with your medical provider. Current Hospital Diet Patient's current hospital diet: AHA Diet (Heart Healthy), Diabetes Type 2 Diet Discharge Diet Recommended Diet: AHA Diet (Heart Healthy), Diabetes Type 2 Diet Pending Studies Studies pending at discharge: no Laboratory Results Hemoglobin A1c Test 01/26/17 09:35 Range/Units Estimated Average Glucose 169 mg/dl Hemoglobin A1c 7.5 H 4.5-5.6 % Lipid Panel Test 01/27/17 06:35 Range/Units Triglycerides Level 237 H 0-150 mg/dl Cholesterol Level 179 0-200 mg/dl HDL Cholesterol 29 mg/dl Cholesterol/HDL Ratio 6.2 LDL Cholesterol, Calculated 103 mg/dl Medical Emergencies . Who to Call and When: Medical Emergencies: Call 911 immediately if you experience any of the following warning signs and symptoms of Stroke: * Sudden numbness or weakness of the face, arm or leg, especially on one side of the body * Sudden confusion, trouble speaking or understanding * Sudden trouble seeing in one or both eyes * Sudden trouble walking, dizziness, loss of balance or coordination * Sudden severe headache with no cause Do not delay calling 911 if you experience any warning signs or symptoms of a stroke. Delay in seeking medical attention may affect what treatments can be given to you. . Non-Emergent Contact Non-Emergency issues call your: Primary Care Provider Call Non-Emergent contact if: your pain is not controlled, your pain is worsening, your pain is concerning you . Past History Medical & Surgical History: (1) CVA (cerebral vascular accident) (2) Diabetes . "Provider Documentation" section prepared by Kedar Kenny. . Stroke Core Measures Reason no t-PA for Stroke: Treatment not indicated Reason no antithrom by day 2: Treatment provided - N/A Reason no antithrom at D/C: Treatment provided - N/A Reason no statin at D/C: Treatment provided - N/A Reason no anticoag w/a fib: Treatment not indicated VTE Core Measure Inpt VTE Proph given/why not?: Enoxaparin (Lovenox)SQ
[2017-01-28] MEDS ORDERED: NRN300 PO (10:44)
[2017-01-28 10:47] VITALS: BP 161/89; PULSE 55; TEMP 36.7; O2SAT 98
--- NOTE | 2017-01-28 11:01 | Discharge Summary ---
Discharge Summary Date of Service January 28, 2017. Discharge Summary Admission Date: January 26, 2017 at 11:55 Discharge Date: January 28, 2017 Discharge Disposition: Home Principal Diagnosis: acute cva Problems/Secondary Diagnoses: diabetes mellitus coronary artery disease hypertension MS like symptoms Immunizations: Have You Had Influenza Vaccine: Yes Influenza Vaccine Date: Jun 14, 2009 History of Tetanus Vaccine?: utd Tetanus Immunization Date: Jun 13, 2009 History of Pneumococcal: No Pneumococcal Date: Sep 26, 2009 History of Hepatitis B Vaccine: No Consultations: Dr. Barros Neurology - Medication Reconciliation New Medications: Gabapentin (Gabapentin) 300 Mg Cap 300 MG PO BID, #60 CAP 0 Refills Continued Medications: Aspirin (Aspirin Chewable) 81 Mg Chew 81 MG PO ON HOLD, TAB Atenolol (Tenormin) 25 Mg Tab 25 MG PO QPM Atorvastatin (Lipitor) 40 Mg Tab 40 MG PO HS, TAB Clopidogrel Bisulfate (Plavix) 75 Mg Tab 75 MG PO ON HOLD, TAB Dextromethorphan-Guaifenesin (Mucinex Dm) 1 Tab Tab 1 TAB PO PRN for 14 Days, TAB Ergocalciferol (Vitamin D 32920 Unit) 50,000 Unit Cap 96727 UNIT PO WK, CAP WEDNESDAYS PM Erythromycin (Erythromycin) 60 Gm Gel 1 APPLN EXT BID Folic Acid (Folvite) 400 Mcg Tab 800 MCG PO ON HOLD, TAB Glipizide-Metformin Hcl (Glipizide/Metformin Hcl) 1 Tab Tab 1 TAB PO BID Losartan Potassium & Hydrochlo (Hyzaar) 1 Tab Tab 1 TAB PO QAM for 90 Days, #90 TAB 3 Refills 50/12.5 MG Metronidazole (Topical) (Metronidazole) 1 % Gel 1 APPLN EXT BID Nitroglycerin (Nitrostat) 0.4 Mg Sub 0.4 MG UT PRN, BTL Discharge Exam Review of Systems: Constitutional: No chills, No fatigue, No fever, No problem reported, No sweats, No weakness, No weight loss Eyes: No diplopia, No discharge, No eye pain, No problem reported, No redness, No worsening of vision ENT: No dental problems, No hearing loss, No nasal symptoms, No problem reported, No sore throat, No tinnitus, No trouble swallowing, No unusual epistaxis Respiratory: No cough, No dyspnea at rest, No dyspnea on exertion, No hemoptysis, No problem reported, No shortness of breath, No sputum, No wheezing Cardiovascular: No PND, No chest pain, No claudication, No edema, No orthopnea, No palpitations, No problem reported Abdomen: No GI bleeding, No constipation, No diarrhea, No nausea, No pain, No problem reported, No vomiting Neurologic: + numbness/tingling (perioral on right, right tongue, right fingers and right foot) Endocrine: No excessive thirst, No excessive urination, No fatigue, No problem reported Physical Exam: General Appearance: WD/WN, no apparent distress Eyes: sclerae normal ENT: hearing grossly normal, pharynx normal Neck: supple Respiratory/Chest: lungs clear, normal breath sounds, no respiratory distress Cardiovascular: regular rate, rhythm, no edema, no gallop, no murmur Abdomen / GI: normal bowel sounds, non tender, soft Extremities: normal inspection, no pedal edema Neurologic/Psychiatric: no motor/sensory deficits, alert, oriented x 3, + sensory deficit (palpation to right foot does cause some pins and needles sensation) Skin: normal color Hospital Course 71 year old male with hx of MS like symptoms, CAD with stent placed in circumflex in 2009, hypertension, dyslipidemia and diabetes mellitus II who presents to the ER with complaints of numbness/tingliness down right arm and right leg and on right side of face that started yesterday evening. Pt reports no issues with swallowing or speech. No weakness, chest pain, shortness of breath, visual changes, N/V/D, fevers or chills. Pt reports numbness and tingliness persists still. Pt has no hx of stroke. Pt is on daily ASA and plavix. He ambulates with cane at home but once again states no weakness.Continue current antiplatelet regimen. Patient has been on both aspirin and Plavix for quite some time and seems to be tolerating dual antiplatelet therapy well. CT scan suggested a small acute frontal infarct. Patient was admitted to the hospitalist service and found to have MRI evidence of 1. A small acute infarct within the left thalamus. 2. A few scattered punctate foci of nonspecific T2 hyperintensity within the periventricular white matter. These favor mild microvascular ischemic change. A demyelinating disease could also have a similar appearance but is considered less likely. He was seen by Dr. Barros neurology. Patient was already on dual platelet therapy and Lipitor 40mg. He cannot tolerate higher doses of statins or Zocor. He was seen by physical therapy and occupational therapy and found to have no therapy needs. He has had a persistent right sided numbness, tingling, pins and needles sensation since the stroke. He was started on gabapentin yesterday which he is tolerating and it has helped some. Will double the gabapentin dose and he will follow up with his PCP and in the neurology outpatient clinic. He does apparently have MS like symptoms after a brown recluse bite, but not actual MS diagnosis. Total Time Spent: Greater than 30 minutes This includes examination of the patient, discharge planning, medication reconciliation, and communication with other providers. Discharge Instructions Please refer to the electronic Patient Visit Report (Discharge Instructions) for additional information. Follow-Up pcp [address] Barros - neuro clinic 2 to 4 weeks
--- NOTE | 2017-01-28 11:35 | Pharmacy Progress Note ---
Pharmacist Stroke Counseling Date of Service January 28, 2017. Scope Pharmacy has been consulted to provide medication discharge counseling for this patient admitted with ischemic stroke/hemorrhagic stroke/ transient ischemic attack as per the Pharmacist Discharge Counseling for Stroke Patients Protocol. Medications on Discharge New Medications: Gabapentin (Gabapentin) 300 Mg Cap 300 MG PO BID, #60 CAP 0 Refills Continued Medications: Aspirin (Aspirin Chewable) 81 Mg Chew 81 MG PO ON HOLD, TAB Atenolol (Tenormin) 25 Mg Tab 25 MG PO QPM Atorvastatin (Lipitor) 40 Mg Tab 40 MG PO HS, TAB Clopidogrel Bisulfate (Plavix) 75 Mg Tab 75 MG PO ON HOLD, TAB Dextromethorphan-Guaifenesin (Mucinex Dm) 1 Tab Tab 1 TAB PO PRN for 14 Days, TAB Ergocalciferol (Vitamin D 79282 Unit) 50,000 Unit Cap 10272 UNIT PO WK, CAP WEDNESDAYS PM Erythromycin (Erythromycin) 60 Gm Gel 1 APPLN EXT BID Folic Acid (Folvite) 400 Mcg Tab 800 MCG PO ON HOLD, TAB Glipizide-Metformin Hcl (Glipizide/Metformin Hcl) 1 Tab Tab 1 TAB PO BID Losartan Potassium & Hydrochlo (Hyzaar) 1 Tab Tab 1 TAB PO QAM for 90 Days, #90 TAB 3 Refills 50/12.5 MG Metronidazole (Topical) (Metronidazole) 1 % Gel 1 APPLN EXT BID Nitroglycerin (Nitrostat) 0.4 Mg Sub 0.4 MG UT PRN, BTL Action The above medications, specifically ones for stroke treatment/prophylaxis, have been reviewed in detail with the patient and/or patient community representative(s) prior to discharge. This includes indication, common adverse reactions, drug interactions, and medication administration. Medication counseling has been employed using the teach-back method to ensure understanding. Outcome The patient and/or patient community representative(s) have demonstrated understanding of the medications. Please note, they are aware that the pharmacist will call them within 72 hours post-discharge to confirm that the appropriate medications are being taken and answer any further medication related questions the patient might have at that time. Contact information Individual to be contacted: Patient Relationship to patient (if applicable): N/A Phone number: His cell phone: [phone]; if for some reason his Adrianna answers , he gives us permission to talk with her as well Best time to call: anytime Additional comments: Pt in good spirits upon discharge. He is very familiar with his medications as he has been on all preventative stroke medications for years (dual antiplatelet plus statin). Only new RX is the gabapentin for arm tingling/numbness which he had no questions about. He did seem confused as to whether he should continue his blood pressure medications as scheduled since after a stroke the doctor told him that permissive HTN is allowed. Would be ideal to follow up with patient's blood pressure and ensure everything was clarified for him at discharge. OF NOTE: MD completed D/C summary/instructions prior to pharmacy being able to edit the list. Some medications have "ON HOLD" in the comment section. THIS IS NOT ACCURATE. The patient is aware this is not appropriate and I will update medication list VIA AOM once patient is discharged from system later today. Thank you for allowing pharmacy to be involved in the care of this patient. Please call [phone] or [phone] with any additional questions
--- NOTE | 2017-02-02 16:16 | Pharmacy Progress Note ---
Pharmacist Post D/C Phone Note Date of attempted phone calls: February 01, 2017 and February 02, 2017. The patient and/or patient roofing sales representative(s) were unable to be reached for a follow-up phone call within the 72 hour time frame. Discharge counseling pharmacist contact information has already been provided to the patient should questions arise. Thank you for allowing us to be involved in the care of this patient.
== END 2017-01-28 13:34 | disposition home or self-care (01) | DRG 66 ==
LOC: ENRESERVTM → ENRESERVDT → C.EDB 09:22 → C.2T 11:55 → C.MS4W 01-27 12:39
PROVIDERS: ADMIT Hospitalist; ATTEND Hospitalist
DX: I63.8 Other cerebral infarction (principal); E11.9 Type 2 diabetes mellitus without complications; R20.0 Anesthesia of skin; R94.02 Abnormal brain scan; I25.10 Atherosclerotic heart disease of native coronary artery without angina pectoris; I10 Essential (primary) hypertension; E78.5 Hyperlipidemia, unspecified; Z95.5 Presence of coronary angioplasty implant and graft; Z79.02 Long term (current) use of antithrombotics/antiplatelets; Z79.84 Long term (current) use of oral hypoglycemic drugs; Z79.899 Other long term (current) drug therapy

== ENCOUNTER → 2017-02-10 | Outpatient (CLI) | payer BC ==
[~2017-02-10] MED LIST changes: -ALBUAER19 INH; -CETI10TA84 PO; -CIPR1TAB11 PO; -DOCU100C31 PO; -GLIP2.5T11 PO; +GLIP2.5T5 PO; -METF-384 PO; +METR0.7536 EXT; -METR1GEL3 TOP; +NRN300 PO; -PHEN-876 PO; -POLY335019 PO; -SYMIN160 INH; -TAMS0.4C38 PO; -TRAM-10 PO; +[UNRECOGNIZED DRUG - CODE] EXT
--- NOTE | 2017-02-10 08:05 | DIAGNOSTIC IMAGING REPORT ---
ULTRASOUND TESTES AND SCROTUM CLINICAL HISTORY: Testicular pain. COMPARISON STUDY: No priors. TECHNIQUE: Real-time, grayscale, and color Doppler sonography of the testes and scrotum is performed. Images are reviewed in the transverse and longitudinal planes. FINDINGS: The testes are normal in size and mildly heterogeneous in echotexture. The right testis measures 5.2 x 2.0 x 2.9 cm and the left testis measures 4.2 x 2.1 x 3.1 cm. No intratesticular mass is seen. Testicular blood flow is normal and symmetric. Normal Doppler waveforms are identified in both testes. The epididymal heads are normal in appearance. The right epididymal head measures 1.3 cm in length and the left epididymal head measures 1.3 cm in length. A 5 mm epididymal head cyst is noted on the right. A small right-sided varicocele measures up to 3 mm. There is no left-sided varicocele varicocele or hydrocele identified. IMPRESSION: 1. Unremarkable sonographic appearance of the testes. 2. There is a small right-sided varicocele. Electronically signed by: Eugenio Mason M.D. 02/10/2017 8:04 AM Dictated Date/Time: 02/10/2017 8:02 AM
== END | disposition home or self-care (01) ==
LOC: C.ULTR 07:31
PROVIDERS: ATTEND Urology
DX: N50.819 Testicular pain, unspecified (principal); I86.1 Scrotal varices

== ENCOUNTER → 2017-03-09 | Outpatient (CLI) | payer BC | END | disposition home or self-care (01) | LOC: C.LABSPEC 11:38 | PROVIDERS: ATTEND Urology | DX: N39.0 Urinary tract infection, site not specified (principal) ==

== ENCOUNTER → 2017-03-11 | Outpatient (CLI) | payer BC ==
[2017-03-11 09:53] LABS: ALT/SGPT 82 U/L (12-78); AST/SGOT 58 U/L (15-37); BLOOD UREA NITROGEN 16 mg/dl (7-18); BUN/CREATININE RATIO 13.7 (10-20); CARBON DIOXIDE 29 mmol/L (21-32); CHLORIDE 105 mmol/L (98-107); GLUCOSE 178 mg/dl (70-99); SODIUM 141 mmol/L (136-145)
[2017-03-11 10:03] LABS: ALB/GLOB RATIO 1.2 (0.9-2); ALKALINE PHOSPHATASE 72 U/L (45-117); CHOLESTEROL 166 mg/dl (0-200); CHOLESTEROL/HDL RATIO 5.4; HDL CHOLESTEROL 31 mg/dl; LDL CHOLESTEROL CALCULATED 96 mg/dl; TRIGLYCERIDES 196 mg/dl (0-150); VERY LOW DENSITY LIPOPROT CALC 39 mg/dl
[2017-03-11 12:35] LABS: ESTIMATED AVERAGE GLUCOSE 180 mg/dl; HA1C FLAG Normal (Normal)
== END | disposition home or self-care (01) ==
LOC: C.LAB1850 07:48
PROVIDERS: ATTEND Family Medicine
DX: I25.10 Atherosclerotic heart disease of native coronary artery without angina pectoris (principal); I10 Essential (primary) hypertension; E11.9 Type 2 diabetes mellitus without complications; E78.00 Pure hypercholesterolemia, unspecified; J30.9 Allergic rhinitis, unspecified

== ENCOUNTER → 2017-08-01 | Outpatient (CLI) | payer BC ==
--- NOTE | 2017-08-01 11:31 | DIAGNOSTIC IMAGING REPORT ---
KUB HISTORY: Acute right-sided flank pain with history of kidney stones R10.9 Flank [id number] COMPARISON: CT 11/20/2016, KUB 10/25/2016 FINDINGS: The bowel gas pattern is non-obstructive. There is no organomegaly. 7 mm calculus of the inferior pole left kidney redemonstrated. Right renal shadow is mostly obscured by bowel gas. No definite additional renal or ureteral calculi are seen. Parenchymal calcification of the liver redemonstrated. No pneumoperitoneum or pneumatosis. No fracture. IMPRESSION: 1. Left-sided nephrolithiasis redemonstrated. No definite right-sided renal calculi or ureteral calculi identified. 2. Nonobstructive bowel gas pattern. Electronically signed by: Cordell Golden M.D. 08/01/2017 11:29 AM Dictated Date/Time: 08/01/2017 11:27 AM
--- NOTE | 2017-08-01 11:46 | DIAGNOSTIC IMAGING REPORT ---
(RENAL)RETROPERITON COMP HISTORY: Flank pain R10.9 Flank [id number] COMPARISON: 10/28/2016 FINDINGS: Right kidney: Maximum dimension 12.6 cm. Mild interval right renal hydronephrosis. Probable 4 mm mid pole nonobstructing calcification. Normal corticomedullary differentiation and cortical thickness. Left kidney: Maximum dimension 11.6 cm. No evidence for hydronephrosis. 9 mm upper pole cyst. Several nonobstructing left renal calcifications measuring up to 9 mm. Normal corticomedullary differentiation and cortical thickness. Bladder: No bladder wall thickening. The bilateral ureteral jets were identified. IMPRESSION: 1. Mild right renal hydronephrosis. 2. Bilateral renal nonobstructing calcifications. The above report was generated using voice recognition software. It may contain grammatical, syntax or spelling errors. Electronically signed by: Nasir Fitzgerald M.D. 08/01/2017 11:44 AM Dictated Date/Time: 08/01/2017 11:43 AM
== END | disposition home or self-care (01) ==
LOC: C.ULTRBC 11:08
PROVIDERS: ATTEND Urology
DX: R10.9 Unspecified abdominal pain (principal); N20.0 Calculus of kidney

== ENCOUNTER → 2017-08-30 | Outpatient (CLI) | payer BC ==
--- NOTE | 2017-08-30 09:47 | DIAGNOSTIC IMAGING REPORT ---
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 No additional renal calcifications are present. Nonobstructive bowel pattern. IMPRESSION: Unchanging 6 mm lower pole left renal calcification. No change from the prior study. The above report was generated using voice recognition software. It may contain grammatical, syntax or spelling errors. Electronically signed by: Nasir Fitzgerald M.D. 08/30/2017 9:46 AM Dictated Date/Time: 08/30/2017 9:45 AM
== END | disposition home or self-care (01) ==
LOC: C.RADBC 09:30
PROVIDERS: ATTEND Urology
DX: N20.0 Calculus of kidney (principal)

== ENCOUNTER → 2017-09-02 | Outpatient (CLI) | payer BC ==
[~2017-09-02] MED LIST changes: +CLOP1TAB15 PO; +ERGO2000 PO; +FOLI800T PO; +GLIP2.5T4 PO; +POTA1080 PO
== END | disposition home or self-care (01) ==
LOC: C.LABSPEC 16:33
PROVIDERS: ATTEND Urology
DX: N20.0 Calculus of kidney (principal)

== ENCOUNTER → 2017-10-28 | Outpatient (CLI) | payer BC ==
[~2017-10-28] MED LIST changes: -CLOP1TAB15 PO; -ERGO2000 PO; -FOLI800T PO; -GLIP2.5T4 PO; -POTA1080 PO
[2017-10-28 12:26] LABS: ALBUMIN 4.1 gm/dl (3.4-5.0); BLOOD UREA NITROGEN 21 mg/dl (7-18); CALCIUM 8.8 mg/dl (8.5-10.1); CARBON DIOXIDE 30 mmol/L (21-32); CREATININE 1.23 mg/dl (0.60-1.40); GLUCOSE 171 mg/dl (70-99); PHOSPHORUS 2.4 mg/dl (2.5-4.9); POTASSIUM 4.1 mmol/L (3.5-5.1); SODIUM 140 mmol/L (136-145)
== END | disposition home or self-care (01) ==
LOC: C.LAB1850 09:31
PROVIDERS: ATTEND Internal Medicine Nephrology
DX: N20.0 Calculus of kidney (principal)

== ENCOUNTER → 2017-12-07 | Outpatient (CLI) | payer BC ==
[2017-12-07 10:27] LABS: BASO % 0.3 %; BASO ABS # 0.02 K/uL (0-0.2); EOS % 3.4 %; EOS ABS # 0.24 K/uL (0-0.5); HEMATOCRIT 43.6 % (42-52); HEMOGLOBIN 14.7 g/dL (14.0-18.0); IG# 0.01 K/uL (0.00-0.02); LYMPH % 29.3 %; LYMPH ABS # 2.06 K/uL (1.2-3.4); MEAN CELL VOLUME 85.3 fL (80-100); MEAN CORPUSCULAR HEMOGLOBIN 28.8 pg (25-34); MEAN CORPUSCULAR HGB CONC 33.7 g/dl (32-36); MEAN PLATELET VOLUME 11.1 fL (7.4-10.4); MONO % 10.8 %; MONO ABS # 0.76 K/uL (0.11-0.59); NEUT % 56.1 %; NEUT ABS # 3.94 K/uL (1.4-6.5); PLATELET COUNT 252 K/uL (130-400); RED CELL DISTRIBUTION WIDTH CV 14.1 % (11.5-14.5); RED CELL DISTRIBUTION WIDTH SD 43.5 fL (36.4-46.3); WHITE BLOOD COUNT 7.03 K/uL (4.8-10.8)
[2017-12-07 10:46] LABS: ALBUMIN 4.2 gm/dl (3.4-5.0); ALT/SGPT 39 U/L (12-78); BLOOD UREA NITROGEN 18 mg/dl (7-18); CALCIUM 9.1 mg/dl (8.5-10.1); CARBON DIOXIDE 28 mmol/L (21-32); CHOLESTEROL 151 mg/dl (0-200); GLUCOSE 161 mg/dl (70-99); SODIUM 139 mmol/L (136-145)
[2017-12-07 10:57] LABS: ALKALINE PHOSPHATASE 75 U/L (45-117); AST/SGOT 21 U/L (15-37); LDL CHOLESTEROL CALCULATED 92 mg/dl; TOTAL PROTEIN 8.1 gm/dl (6.4-8.2)
== END | disposition home or self-care (01) ==
LOC: C.LAB1850 08:53
PROVIDERS: ATTEND Nurse Practitioner Family
DX: E78.00 Pure hypercholesterolemia, unspecified (principal); I25.10 Atherosclerotic heart disease of native coronary artery without angina pectoris; I63.9 Cerebral infarction, unspecified

== ENCOUNTER → 2018-03-22 | Outpatient (CLI) | payer BC ==
[~2018-03-22] MED LIST changes: -CLOP1TAB54 PO; -DEXT30TA7 PO; +ERGO2000 PO; -ERGO500037 PO; -FOLI400T41 PO; +FOLI800T PO; -GLIP2.5T5 PO; -METR0.7536 EXT; -NRN300 PO; +POTA1080 PO; -[UNRECOGNIZED DRUG - CODE] EXT
--- NOTE | 2018-03-22 10:14 | DIAGNOSTIC IMAGING REPORT ---
ABD/PELVIS NO IV OR ORAL CONT CLINICAL HISTORY: 73 years-old Male presenting with R31.9 Hematuria N20.0 Nephrolithiasis. TECHNIQUE: Multidetector CT of the abdomen and pelvis was performed without the use of intravenous contrast. IV contrast: None. A dose lowering technique was used consistent with the principles of ALARA (as low as reasonably achievable). COMPARISON: 11/10/2016. CT DOSE (mGy.cm): The estimated cumulative dose is 1019.27 mGycm. FINDINGS: Drip Molder topogram: Unremarkable. Lung bases: Minimal basilar opacities, likely atelectasis. Calcified granulomata in the left lower lobe. Normal heart size. Coronary artery and aortic valve calcification. No pericardial or pleural effusion. Liver: Normal morphology. Density consistent with hepatic steatosis. Parenchymal calcification may suggest a history of granulomatous infection. Biliary: No gross biliary ductal dilatation allowing for noncontrast technique. Normal gallbladder. Pancreas: Mild parenchymal atrophy. Spleen: Normal noncontrast appearance. Splenule noted. Adrenal glands: Normal noncontrast appearance. Kidneys and ureters: Bilateral nonobstructing nephrolithiasis. The right kidney contains a single calculus measuring 4 mm. The left kidney contains multiple calculi, the largest measuring 8 mm. No hydronephrosis. Trace perinephric fat infiltration. Ureters normal. Bladder: Incompletely evaluated secondary to underdistention. Pelvic organs: Prostate enlargement likely secondary to benign prostatic hyperplasia. Bowel: Normal appendix. No bowel obstruction. Prominent duodenal diverticulum at the level of the pancreatic head. No surrounding inflammatory change. Peritoneal cavity: No free fluid or intraperitoneal gas. Lymph nodes: No gross lymphadenopathy allowing for noncontrast technique. Few prominent lymph nodes in the portacaval region likely reactive. Vasculature: Atherosclerosis of the normal caliber abdominal aorta. Abdominal wall: Small fat-containing umbilical hernia. Musculoskeletal: Mild degenerative changes of the spine. Osteopenia with mild osteoporotic deformities suggested. IMPRESSION: 1. Bilateral nonobstructing nephrolithiasis. No hydronephrosis. No ureteral calculi. 2. Prostatomegaly. 3. Evidence of prior granulomatous infection. 4. Osteopenia with mild osteoporotic deformities in the spine. Electronically signed by: Howie Christensen M.D. 03/22/2018 10:13 AM Dictated Date/Time: 03/22/2018 10:07 AM
== END | disposition home or self-care (01) ==
LOC: C.CTS 09:49
PROVIDERS: ATTEND Urology
DX: N20.0 Calculus of kidney (principal); R31.9 Hematuria, unspecified

== ENCOUNTER 2020-11-06 10:13 | Observation (INO) ==
--- NOTE | 2020-11-06 11:10 | History & Physical Bridge Note ---
Date of Service November 06, 2020 History & Physical Bridge Note I have examined the patient, reviewed the History & Physical and in the interval since the performance of the History & Physical I have noted the following changes of clinical significance: no changes noted
--- NOTE | 2020-11-06 11:12 | Pre Anesthesia Assessment ---
Date of Service November 06, 2020 Pre Sedation Assessment Vital Signs Temp Pulse Resp BP Pulse Ox 11/06/20 10:34 36.7 C 80 20 173/90 H 95 Cardiovascular + regular rate + murmur Respiratory normal respiratory effort, lungs clear to auscultation Pre-Sedation Airway Assessment Smoking Status: Never smoker Hx Sleep Apnea: Yes Short, Thick Neck: No Thyromental Distance: > or= 3.5 Finger Breadths Oral Cavity: + Dentures Mallampati Class: III ASA: ASA3 NPO Status Date of Last Intake of Fluids: 11/05/20 Time of Last Intake of Fluids: 22:00 Date of Last Intake of Solid Food: 11/05/20 Time of Last Intake of Solid Foods: 22:00 Procedure Planning Contraindications for Sedation: none Current Medications Reviewed: Yes Notes The planned sedation has been discussed with the patient. Informed Consent was obtained. I have identified the patient, determined the appropriateness of sedation and have assessed the patient immediately prior to the procedure. All medicine(s) and interventions are by my order.
[2020-11-06] MEDS ORDERED: HEPARIN (PORCINE) 1000 UNIT/ML 10 ML (CATH LAB USE ONLY) ONE ×2 (12:49→14:49)
[2020-11-06] MEDS ORDERED: niCARdipine HCL INJ 2.5 MG/ML 10 ML AMP ONE (12:49)
[2020-11-06] MEDS ORDERED: MIDAZOLAM HCL 1 MG/ML 2ML VIAL ONE ×4 (12:50→15:02)
[2020-11-06] MEDS ORDERED: fentaNYL citrate 100 MCG/2 ML VIAL ONE ×3 (12:50→15:13)
[2020-11-06] MEDS ORDERED: NITROGLYCERIN/D5W 100MCG/ML 20ML SYR ONE (12:50)
[2020-11-06] MEDS ORDERED: diphenhydrAMINE 50 MG/ML VIAL ONE (13:24)
[2020-11-06] MEDS ORDERED: methylPREDNISolone 125 MG/2 ML VIAL ONE (13:24)
[2020-11-06] MEDS ORDERED: ADENOSINE IV SOLN 3 MG/ML 20 ML VIAL IV ONE (13:52)
--- NOTE | 2020-11-06 14:06 | Cardiac Catheterization ---
[facility] Data: Food Safety Scientist Cardiac Status Clinical evaluation leading to the procedure CAD Presenation: Positive Stress Test Anginal Classification: No Symptoms Heart Failure: No Cardiogenic Shock within 24 Hours: No Cardiac Arrest within 24 Hours: No Imaging Studies Past 6 Months: No Stress Studies Past 6 Months: No Standard Exercise Test: No Stress Echocardiogram: Yes - Positive and Risk/Extent of Ischemia (Intermediate) Stress Testing w/SPECT MPI: No Cardiac CTA: No Coronary Anatomy Dominant: Co-Dominant Left Ventricular Angiography EF (%): n/a Diagnostic Physicians Name: Johnny Aleman MD Status: Elective Closure Device Percutaneous Entry Location: Radial Closure Device: Radial Band Recommendations: Management Recommendatons (as noted) Cardiac Cath Procedure Full Procedure Date November 06, 2020 Pre-Procedure Diagnosis Pre-Procedure Diagnosis: Positive Stress Test and CAD AUC Score AUC Score: 8 Post-Procedure Diagnosis Post-Procedure Diagnosis: Severe CAD and Normal Intracardiac Pressures Procedure(s) Performed Procedure(s) Performed: Coronary Angiography and Left Heart Cath Pediatric Cns Johnny Aleman MD Deputy Manager(s) Aimee Estimated Blood Loss Estimated Blood Loss: < 25 ml Medication(s) Medication(s): Fentanyl, Heparin, Lidocaine 1%, Nicardipine and Versed Summary of Findings Procedures: 1. Coronary angiography 2. Left heart catheterization 3. Moderate sedation Indications: 1. Significant dyspnea with minimal exertion and abnormal stress echo suggesting LAD ischemia (apical akinesis following dobutamine infusion). Coronary angiography: 1. Left main coronary artery: No significant CAD. 2. Left anterior descending: Ostial LAD 50 to 70%. Proximal LAD 50 to 70%. Mid LAD 20%. Distal LAD 70%. Apical LAD 70 to 80% (small caliber) D1 without significant CAD. 3. Circumflex: Large and codominant. Mid circumflex stent patent. Mid to distal circumflex 20%. Proximal PDA 30 to 40%. PL without significant CAD. 4. Right coronary artery: Medium to large in caliber. Codominant. Proximal RCA 40%. Early mid RCA subtotal occlusion which may have minimal antegrade flow and otherwise fills via left to right collaterals. Left heart catheterization: 1. Left ventriculography was not performed. 2. No significant aortic stenosis. Peak to peak gradient across aortic valve was less than 10 mmHg. 3. Normal LVEDP; 7 mmHg. Moderate sedation: 1. Sedation start time: 1:28 PM 2. Sedation end time: 1:50 PM Impression: 1. Severe CAD involving late proximal/early mid RCA with [id number] collaterals. 2. Moderate to severe CAD involving the ostial and proximal LAD with severe CAD involving the distal and apical LAD. 3. Patent circumflex stent. 4. Left to right collaterals. 5. Codominant system. 6. Normal left-sided filling pressure. Plan: 1. Dr. Roberts of interventional cardiology was asked to review images and consider further investigation of the ostial/proximal LAD and perhaps PCI of RCA given severe symptoms with minimal exertion. 2. Optimize medical therapy. 3. Consideration for angiography of the renal arteries given history of renal artery stenosis, pending interventional cardiology course. Hemodynamics Rest Ao:: 129/64 Final Ao: 114/56 LV: 135/2/7 Recommendations Recommendations: Management Recommendatons (as noted) Specimens Specimens: None Radiation Exposure (mGy) 686 mGy. Fluoro time 3.5 min. Contrast (mls) 50 ml Procedural Complication(s) None Disposition remains in cathead worker for interventional cardiology I attest to the content of the Intraoperative Record and any orders documented therein. Any exceptions are noted below. [facility] Card Cath Procedure Codes Cardiac Catheterization Procedure 1: Cardiovascular Cath Procedures: 36215 Coronaries and LHC (+/-LV) Moderate Sedation Procedure 1: Sedation/Anesthesia: 52130 Mod Sedation by the same physician;Init15 Min Child Age 5 & Up Procedure 2: Sedation/Anesthesia: 56434 Mod Sedation by the same physician; Ea [id number] Minutes PG Care Time/CCT Total # of Minutes Spent Total Time Spent with Patient: Total time spent is greater than 50% in coordination of care (as documented) at patient's floor/unit and/or counseling patient:
[2020-11-06] MEDS ORDERED: CLOPIDOGREL BISULFATE 300 MG TAB ONE (15:40)
--- NOTE | 2020-11-06 15:40 | Post Anesthesia Assessment ---
Date of Service November 06, 2020 Post Sedation Assessment Vital Signs Temp Pulse Resp BP Pulse Ox 11/06/20 10:34 98.1 F 80 20 173/90 H 95 Recovery Score Activity: Moves 4 extremities Respiration: Deep Breath/Cough Circulation: +/-20% PreAnes Value Consciousness: Fully Awake Oxygen Saturation: O2 needed for >90% Discharge Sedation Level of Care: Fast Track Phase II Post Sedation Plan On clinical assessment, the patient appears to have tolerated the sedation without complications. Patient is recovering as anticipated. Patient will continue to be monitored by nursing and may be discharged when sedation discharge criteria are met per below protocol. Upon Completions of procedure up to 15 minutes continue every 5 minute vital signs and the P.A.R. score; then discharge to a Phase I or Fast Track to Phase II per the following guidelines: * Discharge Patient to appropriate Phase II area if PAR is 8 or greater or return to pre- procedure baseline. The post - procedure orders will be as directed. * If PAR score is less than 8 or not return to pre-procedure baseline then patient will follow Phase I monitoring till PAR is reached for Phase II. The Phase I may be done in procedure room or may call to secure a Phase I area. * If naloxone or flumazenil are used for reversal, hold in Phase I for continued monitoring from when last reversal dose was given for a minimum of 60 minutes or longer pending the nurse and/or physician discretion of patient condition before discharge to Phase II. Please call the Sedation Physician to re-evaluate and complete post-note for discharge to Phase II area. Do NOT discharge from procedure sedation or Phase 1 until post- sedation evaluation note is complete by procedure /sedation MD Sedation Discharge Instructions to be given to the patient at discharge to home.
[2020-11-06] MEDS ORDERED: ONDANSETRON INJ 2 MG/ML 2 ML VIAL IV PRN (15:41)
[2020-11-06] MEDS ORDERED: MoRPHine SULFATE 2 MG/ML CARP IV PRN (15:41)
[2020-11-06] MEDS ORDERED: NITROGLYCERIN SL 0.4 MG/TAB TAB SL PRN (15:41)
--- NOTE | 2020-11-06 15:41 | Post Operative Brief Note ---
Cardiology Brief Post Op Date of Surgery November 06, 2020 Pre & Post Diagnosis Operation Date: 11/06/20 11:00 <No data on this case meets the specified criteria> Procedure PCI to proximal LAD (4.0 x 30 Adria; post-dilated with 4.5 NC). PCI to early-distal LAD (2.5 x 12 Nursery: post-dilated 3.0 NC). Sound Effects Technician Camilo Roberts MD Business Development Manager Aimee Estimated Blood Loss 25 Findings See Below Anesthesia Type RN Sedation Complications none Disposition Accompanied Patient To Recovery: No Disposition: PCU Overlapping Procedure I was present for: the critical portions of procedure. I was immediately available: during the entire case. Back up surgeon: was not required during procedure.
[2020-11-06] MEDS ORDERED: SODIUM CHLORIDE 0.9% 1000ML 1,000 ML IV SCH (15:45)
[2020-11-06] MEDS ORDERED: ONDANSETRON 4 MG OD TAB PO PRN (15:47)
[2020-11-06] MEDS ORDERED: COLCHICINE 0.6 MG TAB PO PRN (15:47)
[2020-11-06] MEDS ORDERED: DOCUSATE SODIUM 100 MG CAP PO PRN (15:47)
[2020-11-06] MEDS ORDERED: TROLAMINE SALICYLATE 10% CRM 255 APPLN/85 GM TUBE EXT PRN (15:47)
[2020-11-06] MEDS ORDERED: DEXTROSE 50% 50 ML SYRINGE IV PRN (15:58)
[2020-11-06] MEDS ORDERED: GLUCOSE 10 TABS/TUBE PO PRN (15:58)
[2020-11-06] MEDS ORDERED: GLUCOSE 40% GEL 15 GM TUBE PO PRN (15:58)
[2020-11-06] MEDS ORDERED: GLUCAGON FOR INJ 1 MG VIAL SQ PRN (15:58)
[2020-11-06] MEDS ORDERED: CARBOHYDRATES FOR HYPOGLYCEMIA PO PRN (15:58)
[2020-11-06] MEDS ORDERED: NITROGLYCERIN SL 0.4 MG/TAB TAB SL SCH (16:00)
[2020-11-06 16:24] LABS: Basophils # (auto) 0.01 K/uL (0-0.2); Basophils % (auto) 0.1 %; Hemoglobin 13.5 g/dL (14.0-18.0); Immature Granulocytes # (auto) 0.05 K/uL (0.00-0.02); Immature Granulocytes % (auto) 0.3 %; Lymphocytes # (auto) 1.54 K/uL (1.2-3.4); Lymphocytes % (auto) 10.4 %; Mean Corpuscular Hgb Conc 33.8 g/dL (32-36); Mean Corpuscular Volume 85.8 fL (80-100); Mean Platelet Volume 11.1 fL (7.4-10.4); Monocytes # (auto) 0.13 K/uL (0.11-0.59); Monocytes % (auto) 0.9 %; Neutrophils # (auto) 13.04 K/uL (1.4-6.5); Neutrophils % (auto) 88.3 %; Platelet Count 263 K/uL (130-400); RDW Standard Deviation 43.3 fL (36.4-46.3); Red Blood Count 4.66 M/uL (4.7-6.1); White Blood Count 14.77 K/uL (4.8-10.8)
[2020-11-06] MEDS: NITROGLYCERIN 2% OINTMENT 30GM TUBE EXT SCH (17:38)
[2020-11-06] MEDS: INSULIN ASPART 100 UNITS/ML 3 ML PEN SC SCH ×2 (17:39→21:16)
[2020-11-06] MEDS ORDERED: ATORVASTATIN 40 MG TAB PO SCH (21:00)
[2020-11-06] MEDS ORDERED: INSULIN GLARGINE SOLOSTAR 100 UNITS/ML 3 ML PEN SQ SCH (21:00)
[2020-11-06] MEDS ORDERED: ATENOLOL 25 MG TABLET PO SCH (21:00)
[2020-11-06] MEDS: amLODIPine BESYLATE 5 MG TAB PO SCH (21:20)
[2020-11-06] MEDS: ACETAMINOPHEN 325 MG TAB PO PRN (21:22)
--- NOTE | 2020-11-06 23:01 | Cardiac Catheterization ---
[facility] Data: User Interface Engineer Cardiac Status Clinical evaluation leading to the procedure CAD Presenation: Non STEMI Anginal Classification: CCS III Heart Failure: No Cardiogenic Shock within 24 Hours: No Cardiac Arrest within 24 Hours: No Imaging Studies Past 6 Months: Yes Stress Studies Past 6 Months: Yes Stress Echocardiogram: Yes - Positive and Risk/Extent of Ischemia (Intermediate) Diagnostic Physicians Name: Camilo Roberts MD Status: Elective Closure Device Percutaneous Entry Location: Radial Closure Device: Radial Band Recommendations: PCI without planned CABG PCI Indication: + Stress Test and Angina despite med therapy Lesion Segment Name: proximal LAD Culprit Artery: Yes Stenosis Prior to Rx (%): 80 Chronic Total Occlusion: No IVUS: Yes FFR: No Pre-Procedure MARY Flow: 3 Previously Treated Lesion: No Lesion Complexity: Non-High/Non-C Thrombus Present: No Bifurcation Lesion: No Guidewire Across Lesion: Stenosis Post-Procedure (%): 0 Post-Procedure MARY Flow: 3 Devices(s) Deployed: Yes Yes Lesion #2 Segment Name: distal LAD Culprit Artery: Yes Stenosis Prior to Rx (%): 70 Chronic Total Occlusion: No IVUS: Yes FFR: No Pre-Procedure MARY Flow: 3 Previously Treated Lesion: No Lesion Complexity: Non-High/Non-C Lesion Length (mm): 10 Thrombus Present: No Bifurcation Lesion: No Guidewire Across Lesion: Yes Stenosis Post-Procedure (%): 0 Post-Procedure MARY Flow: 3 Devices(s) Deployed: Yes Intraprocedure Events Significant Disection: No Perforation: No Cardiac Cath Procedure Full Procedure Date November 06, 2020 Pre-Procedure Diagnosis Pre-Procedure Diagnosis: Positive Stress Test and CAD AUC Score AUC Score: 8 Post-Procedure Diagnosis Post-Procedure Diagnosis: Severe CAD and Successful PCI Procedure(s) Performed Procedure(s) Performed: Coronary Angiography, Drug Eluting Stent, IVUS and Procedure (Aortography, Bilateral renal artery angiography) System Safety Manager Camilo Roberts MD Tool And Die Repairer(s) Aimee Estimated Blood Loss Estimated Blood Loss: 25 Medication(s) Medication(s): Dopamine, Fentanyl, Heparin, Lidocaine 1%, Nicardipine and Versed Summary of Findings Indication: Abnormal stress test (apical wall motion abnormality), angina/dyspnea on exertion Access: 6Fr Right radial artery Catheters: JR4 guide, EBU 3.5 guide Findings: For full details of patient's coronary angiography please see cath report dict ated by Dr. Aleman. Briefly, patient found to have multivessel CAD with occluded RCA and moderate to severe proximal, distal LAD disease. -- PCI -- Antithrombotic therapy: Heparin, clopidogrel Procedure: Attempt made to cross mid RCA occlusion. RCA cannulated with JR4 guide. Attempted to cross occlusion with corporation pilot 50 wire and long whisper wire with the aid of a OTW balloon No progress made crossing occlusion. Antegrade flow secondary to bridging collaterals. Left main cannulated with EBU 3.5 guide Cooler Conveyor Loader 50 wire passed across lesions into distal vessel [place] IVUS catheter passed into distal vessel. Pullback revealed 70% focal distal stenosis and diffuse proximal to mid disease up to 80% (MLA 4.4 mm). Distal LAD stented with 2.5 x 12 mm [place] drug-eluting stent Proximal to mid LAD stented with 4.0 x 30 mm Adria Proximal LAD stent postdilated with 4.5 NC Distal LAD stent post-dilated with 3.0 noncompliant balloon Repeat IVUS showed well-expanded, well apposed stent. IC vasodilators administered for spasm Post procedure MARY 3 flow, stents well expanded with minimal residual stenosis and no apparent cardiac complications. Post PCI pigtail navigated into abdominal aortaaortogram revealed no significant aneurysmal or stenotic disease Renal arteries cannulated with JR4 guide Left renal arteryno significant disease Right renal % proximal stenosis Arterial Closure: TR band Summary: 1. Successful PCI of proximal to mid LAD with single drug-eluting stent (4.0 x 30 mm Adria; postdilated with 4.5 NC). 2. Successful PCI of distal LAD with single drug-eluting stent (2.5 x 12 mm Adria; postdilated with 3.0 NC). 3. Unsuccessful attempt to cross mid RCA chronic total occlusion antegrade. Distal RCA vessel fills via right to right bridging collaterals. 4. 50% proximal right renal artery stenosis. No significant left renal artery disease. Recommendations: To PCU for continued monitoring Reloaded with clopidogrel 300 mg in User Interface Engineer Continue dual-antiplatelet therapy for at least 1 year Consult cardiac Rehab Hemodynamics Rest Ao:: 134/68/96 Final Ao: 125/59/103 LV: 135/6 Recommendations Recommendations: PCI without planned CABG Specimens Specimens: None Radiation Exposure (mGy) 5261 Contrast (mls) 200 Fluids (cc crystalloids) Fluids (cc crystalloids): 500 Drains Drains: none Anesthesia moderate Procedural Complication(s) None Disposition PCU I attest to the content of the Intraoperative Record and any orders documented therein. Any exceptions are noted below. [facility] Card Cath Procedure Codes Therapeutic Services & Ancillary Proc Procedure 1: Cardiovascular Tx and Anc Procedures: 89811 IV Ultrasound (Coronary or Graft) Moderate Sedation Procedure 1: Sedation/Anesthesia: 03700 Mod Sedation by the same physician; Ea [id number] Minutes Stenting Procedure 1: Cardiovascular Stent Procedures: 98076 Perc transcatheter placement of intracoronary stent(s), with ang PG Care Time/CCT Total # of Minutes Spent Total Time Spent with Patient: Total time spent is greater than 50% in coordination of care (as documented) at patient's floor/unit and/or counseling patient:
[2020-11-06] MEDS ORDERED: PHENAZOPYRIDINE HCL 200 MG TAB PO PRN (23:15)
[2020-11-07] MEDS: NITROGLYCERIN 2% OINTMENT 30GM TUBE EXT SCH ×3 (01:13→11:17)
[2020-11-07] MEDS: ACETAMINOPHEN 325 MG TAB PO PRN (03:49)
--- NOTE | 2020-11-07 06:10 | Electrocardiogram Report ---
Test Reason : Blood Pressure : / mmHG Vent. Rate : 064 BPM Atrial Rate : 064 BPM P-R Int : 170 ms QRS Dur : 100 ms QT Int : 420 ms P-R-T Axes : 040 -25 -14 degrees QTc Int : 433 ms Sinus rhythm with occasional Premature ventricular complexes Otherwise normal ECG When compared with ECG of 22-OCT-2020 09:59, Premature ventricular complexes are now Present Confirmed by Johnny Aleman ([id number]) on 11/07/2020 6:10:23 AM Referred By: Dexter Cruz Confirmed By:Johnny Aleman
[2020-11-07 06:12] LABS: Basophils # (auto) 0.01 K/uL (0-0.2); Hematocrit (blood only) 39.9 % (42-52); Hemoglobin 13.4 g/dL (14.0-18.0); Immature Granulocytes # (auto) 0.08 K/uL (0.00-0.02); Immature Granulocytes % (auto) 0.4 %; Lymphocytes # (auto) 2.21 K/uL (1.2-3.4); Lymphocytes % (auto) 10.1 %; Mean Corpuscular Hemoglobin 28.9 pg (25-34); Mean Corpuscular Hgb Conc 33.6 g/dL (32-36); Mean Platelet Volume 11.8 fL (7.4-10.4); Monocytes # (auto) 1.47 K/uL (0.11-0.59); Monocytes % (auto) 6.7 %; Neutrophils # (auto) 18.09 K/uL (1.4-6.5); Neutrophils % (auto) 82.8 %; Platelet Count 345 K/uL (130-400); RDW Coefficient of Variation 14.3 % (11.5-14.5); RDW Standard Deviation 44.3 fL (36.4-46.3); Red Blood Count 4.64 M/uL (4.7-6.1); White Blood Count 21.86 K/uL (4.8-10.8)
[2020-11-07 06:49] LABS: BUN Creatinine Ratio 20.8 (10-20); Calcium 9.1 mg/dl (8.5-10.1); Creatinine Clr Calc Pharmacy 52.8 ml/min; Est GFR (African American) 49.9; Est GFR (Non-African American) 43.1; Potassium 4.2 mmol/L (3.5-5.1)
[2020-11-07] MEDS: amLODIPine BESYLATE 5 MG TAB PO SCH (08:24)
[2020-11-07] MEDS: INSULIN ASPART 100 UNITS/ML 3 ML PEN SC SCH ×2 (08:27→11:59)
[2020-11-07] MEDS ORDERED: ASPIRIN 81 MG ECTAB PO SCH ×2 (09:00)
[2020-11-07] MEDS ORDERED: ATORVASTATIN 40 MG TAB PO SCH (09:00)
[2020-11-07] MEDS ORDERED: CHOLECALCIFEROL 1,000 UNITS 25 MCG TAB PO SCH (09:00)
[2020-11-07] MEDS ORDERED: CLOPIDOGREL BISULFATE 75 MG TAB PO SCH ×2 (09:00)
[2020-11-07] MEDS ORDERED: INSULIN GLARGINE SOLOSTAR 100 UNITS/ML 3 ML PEN SQ SCH (09:00)
[2020-11-07] MEDS ORDERED: SPIRONOLACTONE 25 MG TAB PO SCH (09:00)
[2020-11-07] MEDS ORDERED: FOLIC ACID 1 MG TAB PO SCH (09:00)
--- NOTE | 2020-11-07 10:09 | CT Scan Report ---
CT OF THE CHEST WITHOUT IV CONTRAST CLINICAL HISTORY: dyspnea on exertion. COMPARISON STUDY: Chest radiograph October 25, 2020. Chest CT December 26, 2008. CT DOSE: 782.39 mGy.cm TECHNIQUE: Axial images of the chest were obtained without IV contrast. Images were reviewed in the axial, sagittal, and coronal planes. IV contrast was not administered for this examination. Automat ed exposure control was utilized for the study. A dose lowering technique was utilized adhering to t he principles of ALARA. FINDINGS: No enlarged axillary, mediastinal or hilar lymph nodes are present. Mild cardiomegaly is n oted. Coronary artery stents are noted. There is mild dilatation of the central pulmonary arteries. T here is no pericardial effusion. There is no pneumothorax or pleural effusion. Mild elevation of the right hemidiaphragm is similar to prior exam. There are multiple small calcified granulomas within th e lungs. These are benign. There are no suspicious pulmonary nodules. No consolidation is identified to suggest pneumonia. Right lower lobe opacity reflects atelectasis or scarring. No suspicious lesion s within the bony thorax are noted. Left ureteral stent is partially imaged on this examination. 4 mm calculus within the upper pole the right kidney is noted. There is a diverticulum of the second port ion of the duodenum. There is minimal hyperdense material within the gallbladder. IMPRESSION: 1. No acute process within the chest. No consolidation to suggest pneumonia. 2. Mild cardiomegaly. Mild dilatation of the central pulmonary arteries which raises the possibility of pulmonary arterial hypertension. ACT 112: Negative or not required by law. Electronically signed by: Bharath Turner M.D. 11/07/2020 10:08 AM
[2020-11-07 10:14] LABS: D Dimer 240 ug/L FEU (0-500)
--- NOTE | 2020-11-07 12:32 | Electrocardiogram Report ---
Test Reason : Blood Pressure : / mmHG Vent. Rate : 054 BPM Atrial Rate : 054 BPM P-R Int : 178 ms QRS Dur : 096 ms QT Int : 450 ms P-R-T Axes : 055 016 020 degrees QTc Int : 426 ms Poor data quality, interpretation may be adversely affected Sinus bradycardia Nonspecific ST abnormality Abnormal ECG When compared with ECG of 06-NOV-2020 16:09, Premature ventricular complexes are no longer Present QRS axis Shifted right T wave inversion less evident in Inferior leads Confirmed by Giancarlo Cruz ([id number]) on 11/07/2020 12:32:07 PM Referred By: Dexter Cruz Confirmed By:Giancarlo Cruz
--- NOTE | 2020-11-07 12:36 | Discharge Summary ---
Date of Service November 07, 2020 Admission HPI Per Admitting Provider Mr. Ching is a 75 year old gentleman with a history significant for CAD status post circumflex PCI, hypertension, diabetes, stroke, and dyslipidemia. He also reports a history of multiple sclerosis. He has chronically taken Plavix for noncardiac reasons. In January of 2017 he had a stroke. He was admitted for observation on 11/06/2020 after having elective outpatient cardiac catheterization which led to PCI of his LAD. He was kept for observation. His presenting symptom which led to stress testing was dyspnea with exertion. Discharge Data Consultations 11/06/20 15:44 Consult Cardiac Rehabilitation Routine Procedures Performed Operation Date: 11/06/20 11:00 Actual Procedures p Drug Eluting Stent SGl Vessel - Sheng Roberts MD s Cath, Left with Cors and Vent - Johnny Aleman MD s IVUS Coronary Single Vessel - Sheng Roberts MD s Cineradiography w/Routine Exam - Sheng Roberts MD s Angio Renal Bialteral - Sheng Roberts MD s POBA each ADDTL Vessel - Sheng Roberts MD Cardiac catheterization 11/06/2020: Coronary angiography: 1. Left main coronary artery: No significant CAD. 2. Left anterior descending: Ostial LAD 50 to 70%. Proximal LAD 50 to 70%. Mid LAD 20%. Distal LAD 70%. Apical LAD 70 to 80% (small caliber) D1 without significant CAD. 3. Circumflex: Large and codominant. Mid circumflex stent patent. Mid to distal circumflex 20%. Proximal PDA 30 to 40%. PL without significant CAD. 4. Right coronary artery: Medium to large in caliber. Codominant. Proximal RCA 40%. Early mid RCA subtotal occlusion which may have minimal antegrade flow and otherwise fills via left to right collaterals. Left heart catheterization: 1. Left ventriculography was not performed. 2. No significant aortic stenosis. Peak to peak gradient across aortic valve was less than 10 mmHg. 3. Normal LVEDP; 7 mmHg. Moderate sedation: 1. Sedation start time: 1:28 PM 2. Sedation end time: 1:50 PM Impression: 1. Severe CAD involving late proximal/early mid RCA with [id number] collaterals. 2. Moderate to severe CAD involving the ostial and proximal LAD with severe CAD involving the distal and apical LAD. 3. Patent circumflex stent. 4. Left to right collaterals. 5. Codominant system. 6. Normal left-sided filling pressure. Interventional Cardiology Summary: 1. Successful PCI of proximal to mid LAD with single drug-eluting stent (4.0 x 30 mm [place]; postdilated with 4.5 NC). 2. Successful PCI of distal LAD with single drug-eluting stent (2.5 x 12 mm [place]; postdilated with 3.0 NC). 3. Unsuccessful attempt to cross mid RCA chronic total occlusion antegrade. D istal RCA vessel fills via right to right bridging collaterals. 4. 50% proximal right renal artery stenosis. No significant left renal artery disease. Hospital Course (1) CAD in [place] artery: (2) S/P coronary artery stent placement: (3) SOB (shortness of breath) on exertion: (4) Hypertension: (5) Renal artery stenosis: ASSESSMENT/PLAN: 1. CAD s/p LAD PCI x 2: He was found to have proximal to mid and distal LAD stenosis. He underwent PCI with 2 drug-eluting stents. He also was found to have early mid RCA chronic total occlusion with right to right [id number] collaterals. Interventional cardiology attempted to cross the mid RCA lesion without success. He had some residual chest discomfort following PCI which has since resolved. Continue aspirin 81 mg daily indefinitely. Continue Plavix 75 mg daily for at least 6 months without interruption. He has chronically been on Plavix for history of stroke as well. Continue high-intensity statin therapy and beta-jennifer therapy. 2. Dyspnea with exertion: Denies orthopnea and euvolemic on examination. Left- sided filling pressures (LVEDP 7). Dyspnea did not improve following PCI. CT scan of the chest was ordered without obvious etiology for his symptoms. Consideration for pulmonary embolism however D-dimer was unremarkable. Symptom has been present for several weeks without worsening. Oxygen saturation with ambulation was normal, maintaining at least 98% or more. Heart rate also increased as there was concern in the past for chronotropic incompetence. Etiology for dyspnea has not yet been identified. Recommend follow-up with PCP and consideration for Pulmonary consultation. 3. Hypertension: Blood pressure has mostly been normotensive with occasional mild hypertension. Continue home regimen. 4. Renal artery stenosis: Angiography of bilateral renal arteries demonstrated proximal right renal artery stenosis of 50% with no significant stenosis on the left. 5. Disposition: Follow-up with PCP within 1 week. Follow-up in the cardiology office in approximately 1 week. Consider outpatient pulmonary consultation. He is comfortable going home as his symptoms have not been worsening and have been present for several weeks, including recent hospitalization when he was followed by hospitalist service. Coding Level of Care Code 95040 OBS Care - Discharge Diagnoses CAD in [place] artery I25.10 S/P coronary artery stent placement Z95.5 SOB (shortness of breath) on exertion R06.02 Hypertension I10 Renal artery stenosis I70.1
== END 2020-11-07 13:27 | disposition home or self-care (01) | DRG 247 ==
LOC: CC 10:13 → INTOOBSV 15:14 → 2E 15:14

== ENCOUNTER 2024-01-28 12:04 | Inpatient (IN) ==
--- NOTE | 2024-01-28 12:35 | Emergency Department Note ---
Impression & Plan Right upper quadrant pain, Acute cholecystitis ED Provider Note NAME: BÁRBARA BRITT AGE: 78 SEX: M : 1945 ARRIVES VIA: Walk-In INFORMANT: [Patient] ED PROVIDER(S): [Eugenio Valentine MD] CHIEF COMPLAINT: Flank pain HISTORY OF PRESENT ILLNESS: The patient is a 78-year-old male who states that he is scheduled next month for a HIDA scan. He was found to have some biliary sludge. The patient states he has had 1.5 months of some intermittent discomfort in the right upper quadrant. 2 hours ago, he states the pain started again. It is now severe. He had nausea and feels bloated. He feels dizzy. No vomiting, no fever, no shortness of breath. He has not suffered trauma. No urinary complaints or pain radiation. The patient does have a history of kidney stones but he states this does not feel like a stone passing. He had a banana before his pain began. PMHx/PSHx/Social Hx: See Below PHYSICAL EXAM: GENERAL: Patient is in mild distress from pain. HEENT: No acute trauma, normocephalic atraumatic, mucous membranes moist, no nasal congestion. NECK: No stridor, no adenopathy, no meningismus, trachea is midline. LUNGS: Clear to auscultation bilaterally, no wheeze, no rhonchi, breath sounds equal. HEART: Without murmurs gallops or rubs, regular rate and rhythm. ABDOMEN: Soft, tender in the right upper quadrant, no abdominal distention. No pain to the right lower quadrant with palpation. EXTREMITIES: No cyanosis, full range of motion of all the joints without pain or difficulty. NEUROLOGIC: Oriented x 3, no acute motor or sensory deficits, no focal weakness. SKIN: No jaundice, no diaphoresis. DIFFERENTIAL DIAGNOSIS: Biliary colic, renal colic, musculoskeletal pain, acute cholecystitis, pancreatitis, UTI, among others. EMERGENCY DEPARTMENT PROCEDURES: MEDICAL DECISION MAKING: There is no leukocytosis or concerning anemia. There is a normal platelet count. No renal failure or significant electrolyte abnormality. No evidence for pancreatitis. No liver enzyme elevation. ECG shows a sinus bradycardia, no ischemia. Cardiac enzyme testing x 1 is not consistent with acute cardiac injury. Urinalysis does not show blood or infection. Chest x-ray does not show free air or pneumonia. Abdominal and pelvis CT suggests acute cholecystitis. No urinary obstruction seen. Gallbladder ultrasound shows gallstones and a borderline thickened gallbladder wall. No free fluid around the gallbladder. On exam, the patient was tender in the right upper quadrant. I suspect the patient has early acute cholecystitis. The patient was given IV Toradol, IV morphine, IV Zofran and IV saline. He received IV Zosyn as antibiotic coverage. Patient does feel improved. I did speak with general surgery. The patient cannot undergo a surgical procedure as he is on aspirin and Plavix. Medical admission for now was recommended. I spoke with the patient and case management, the on-call hospitalist was consulted. Prior/Outside records/notes reviewed: None ECG per my interpretation: Indication was abdominal pain. The ECG shows a sinus bradycardia with some sinus arrhythmia. There is no acute ST elevation, no PVCs. The QTc was 407. Continuous Cardiac Monitoring per my interpretation: An order was placed for continuous cardiac monitoring. The monitor shows a rate of 51 with sinus bradycardia. Imaging/x-ray results per my interpretation: Chest x-ray did not show mediastinal widening, pneumonia or free air. Chronic Medical/Social conditions affecting care: Advanced age. Care/Management discussed with: General surgery-Dr. Vega. The on-call hospitalist and case management. Level of care consideration(s): After review of the information above and other included data: --I believe the patient requires escalation of care to admission DISPOSITION: Admission with surgical consult Past Med/Surg History Problem List (Updated 01/28/24 @ 16:53 by Eugenio Valentine MD) Acute cholecystitis (Acute) Right upper quadrant pain (Acute) Acute cholecystitis Chest pain Obesity Allergic rhinitis (Chronic) Asthma (Chronic) Facet syndrome, lumbar (Chronic) Hypercholesterolemia (Chronic) Impotence, organic (Chronic) On continuous oral anticoagulation (Chronic) Vitamin D deficiency (Chronic) Kidney stones (Chronic) BRITTANY (generalized anxiety disorder) (Chronic) S/P coronary artery stent placement CAD, multiple vessel Nocturnal hypoxemia due to asthma Bradycardia Multiple sclerosis H/O vascular surgery History of exposure to asbestos Type 2 diabetes mellitus with diabetic neuropathy (Acute) IDDM Renal artery stenosis (Chronic) 50% Proximal right renal artery stenosis, no significant disease of the left renal artery 11/06/20 arteriogram Degeneration of cervical intervertebral disc (Chronic) Recurrent nephrolithiasis (Chronic) Solitary thyroid nodule (Chronic) Sleep apnea (Chronic) CPAP + O2 @ 2 LPM qHS Lumbar canal stenosis (Chronic) Disc degeneration, lumbar (Chronic) Benign prostatic hyperplasia with urinary obstruction (Chronic) Hypertension (Chronic) Kidney disease (Chronic) Medical History Temporal headache temporal bx 04/2022 neg per pt. planning for lumbar puncture at [facility] 08/04/22. Stenosis of right subclavian artery Approx 60% per 02/2022 vascular records- recommend BP be taken in left arm for accuracy purposes Dysphagia Has had ongoing for 30+ yrs, no issues with at present Carotid artery stenosis Per 01/2022 Carotid Doppler= <50% stenosis in the bilateral ICAs; >50% arterial occlusive disease in right subclavian History of stroke 5+ years ago, no residual effects > Plavix CAD (coronary artery disease) JAQUI x2 to prox and mid LAD (11/06/20), BMS x 1 to LCx (2009) Gout HLD (hyperlipidemia) Hearing deficit B/L RODRIGUEZ Pulmonary nodule Chronic cough MVP (mitral valve prolapse) MV anatomy "normal" per 10/26/20 echo ENZO (acute kidney injury) History of tinnitus Poor circulation Homocystinemia Surgical History History of temporal artery biopsy History of lithotripsy (12/16/20) History of anesthesia reaction History of esophagogastroduodenoscopy (EGD) History of colonoscopy History of cardiac catheterization Status post laser lithotripsy of ureteral calculus S/P cystoscopy with ureteral stent placement Status post blepharoplasty of both eyes S/P hernia repair H/O sinus surgery Previous back surgery Family History Sister Ovarian cancer Congestive heart disease Heart disease Cancer Brother Heart disease Unknown Ovarian cancer Other No family history of adverse response to anesthesia No family history of bleeding disorder Denies family history of Prostate cancer Myocardial infarction Breast cancer Colorectal cancer Social History Smoking Status: Never smoker Second Hand Exposure: No; Do You Dip or Chew Tobacco: No; Hx Alcohol Use: No Hx Substance Use: No Preferred Language: Bahamian Communication Ability: Effective Visual Impairment: Limited Hearing Ability: Use of Hearing Aid Biological Science Aide Required: No Beliefs That Will Affect Care: None marital status: Current Living Situation: Spouse current occupational status: retired How many Children do You have: 3 Feels Safe at Home: Yes Childhood Exposure to Second-Hand Smoke: Yes Diet: regular caffeine: No during the past year weight has: decreased > 10 lbs Dental Care, Regularly: Yes Physical Activity Frequency: Daily Seatbelt Use: always Sunscreen Use: No Assistive Devices: Cane, CPAP, Denture - Upper, Glasses, Hearing Aid - Bilateral and Oxygen - at Night Allergies Allergies Allergy/AdvReac Type Severity Reaction Status Date / Time Iodinated Contrast Media Allergy Severe Anaphylaxis Verified 01/28/24 15:41 walnut Allergy Severe Tongue Verified 01/28/24 15:41 swelling, dyspnea simvastatin AdvReac Mild GI symptoms Verified 01/28/24 15:41 Home Meds Home Medications Medication Instructions Recorded Confirmed colchicine 0.6 mg tablet 0.6 mg PO BID PRN gout 08/14/19 01/28/24 aspirin 81 mg tablet,delayed 81 mg PO QDL 09/07/19 01/28/24 release (Iggy Low Dose Aspirin) clopidogrel 75 mg tablet 75 mg PO QAM 09/07/19 01/28/24 nitroglycerin 0.4 mg sublingual 0.4 mg sublingual UD PRN Chest Pain 09/07/19 01/28/24 tablet (Nitrostat) docusate sodium 100 mg capsule 100 mg PO BID PRN Constipation 04/15/20 01/28/24 folic acid 1 mg tablet 1 mg PO QDL 04/15/20 01/28/24 spironolactone 25 mg tablet 25 mg PO QAM 12/09/20 01/28/24 acetaminophen 325 mg tablet 325 mg PO QID PRN Pain 04/08/22 01/28/24 B-complex with vitamin C 1 tab PO DAILY 01/28/24 01/28/24 cephalexin 500 mg capsule 500 mg PO QID 01/28/24 01/28/24 ergocalciferol (vitamin D2) 1,250 1,250 mcg PO WK 01/28/24 01/28/24 mcg (50,000 unit) capsule (Vitamin D2) Previous Rx's Medication Instructions Recorded metformin 500 mg tablet 500 mg PO BID #180 tabs 11/04/19 atorvastatin 40 mg tablet 40 mg PO HS #90 tabs 09/07/19 menthol 4 % topical gel (Biofreeze 1 appln topical QID PRN pain #89 mL 09/07/19 (menthol)) ondansetron 4 mg disintegrating 4 mg PO Q6H PRN nausea and 10/22/19 tablet vomiting #30 tabs blood sugar diagnostic (FreeStyle #100 ea 04/15/20 Lite Strips) insulin glargine U-300 conc 300 See Rx Instructions subcut 04/15/20 unit/mL (1.5 mL) subcutaneous pen .COMPLEX 90 days #16.5 mL (Toujeo SoloStar U-300 Insulin) amlodipine 5 mg tablet 5 mg PO BID #180 tabs 04/17/20 atenolol 25 mg tablet 12.5 mg (1/2 x 25 mg) PO HS #45 12/10/20 tabs blood-glucose meter,continuous #1 ea 05/04/23 (Dexcom G6 Window Air Conditioner Installer) blood-glucose meter,continuous #1 ea 05/04/23 (Dexcom G7 Window Air Conditioner Installer) arginine (L-arginine) 500 mg 500 mg PO DAILY #360 caps 11/02/23 capsule blood-glucose sensor (Dexcom G7 #9 ea 11/22/23 Sensor device) ezetimibe 10 mg tablet (Zetia) 10 mg PO DAILY #90 tabs 01/27/24 isosorbide mononitrate 30 mg 30 mg PO DAILY #30 tabs 01/27/24 tablet,extended release 24 hr Results & Data (ED) Vital Signs Vital Signs - 24 hr 01/28/24 12:11 01/28/24 12:35 01/28/24 12:37 Temperature 36.9 C Temperature Source Temporal Artery Scan Pulse Rate 52 L 51 L Pulse Rhythm Regular Pulse Strength Normal Respiratory Rate 20 Respiratory Effort / Characteristics Non-Labored Spontaneous Respiratory Depth Normal Blood Pressure 170/79 H Blood Pressure Mean 109 Pulse Oximetry 95 98 Oxygen Delivery Method Room Air Room Air Sepsis Recent Fever Within 48 Hours No Sepsis New/Unexplained Change in Mental Status N/A Sepsis Action Taken by Nursing No Action Required Home Medications Current Medication List: was personally reviewed by me Laboratory Data Attestation: I reviewed the patient's lab results. 01/28/24 12:34 01/28/24 12:34 Lab Results 01/28/24 01/28/24 Range/Units 12:34 14:50 WBC 9.16 (4.8-10.8) K/ul RBC 5.02 (4.70-6.10) M/uL Hgb 13.1 L (14.0-18.0) g/dl Hct 41.5 L (42.0-52.0) % MCV 82.7 (80.0-100.0) fL MCH 26.1 (25.0-34.0) pg MCHC 31.6 L (32.0-36.0) g/dL RDW Std Deviation 46.5 H (36.4-46.3) fL RDW Coeff of Annie 15.6 H (11.5-14.5) % Plt Count 228 (130-400) K/uL MPV 11.9 (9.4-12.4) fL Immature Gran % (Auto) 0.4 % Neut % (Auto) 58.4 % Lymph % (Auto) 28.3 % [place] % (Auto) 9.4 % Eos % (Auto) 3.1 % Baso % (Auto) 0.4 % Neut # (Auto) 5.35 (1.40-6.50) K/uL Lymph # (Auto) 2.59 (1.20-3.40) K/uL [place] # (Auto) 0.86 H (0.11-0.59) K/uL Eos # (Auto) 0.28 (0.00-0.50) K/uL Baso # (Auto) 0.04 (0.00-0.20) K/uL Immature Gran # (Auto) 0.04 (0.01-0.20) K/uL Sodium 141 (136-145) mmol/L Potassium 4.3 (3.5-5.1) mmol/L Chloride 109 H (98-107) mmol/L Carbon Dioxide 25 (21-32) mmol/L Anion Gap 7 (3-11) BUN 22 (6-23) mg/dl Creatinine 1.14 (0.6-1.4) mg/dl Est Cr Clr Drug Dosing Not Reportable Est GFR ( Amer) 72.0 ml/min Est GFR (Non-Af Amer) 62.1 ml/min BUN/Creatinine Ratio 19.3 (10-20) Glucose 123 H (70-99(Fasting)) mg/dl Calcium 8.8 (8.6-10.3) mg/dl Total Bilirubin 0.5 (0.2-1.0) mg/dl AST 18 (13-39) U/L ALT 17 (7-52) U/L Alkaline Phosphatase 52 (34-104) U/L Troponin I High Sens 5.6 (0-20) pg/ml Total Protein 7.3 (6.0-8.3) gm/dl Albumin 4.4 (3.4-5.0) gm/dl Globulin 2.9 (2.5-4.0) gm/dl Albumin/Globulin Ratio 1.5 (0.9-2) Lipase 42 (11-82) U/L Urine Color Yellow Urine Appearance Clear (Clear) Urine pH 5.5 (4.5-7.5) Ur Specific [place] 1.020 (1.000-1.030) Urine Protein Negative (Negative) Urine Glucose (UA) Negative (Negative) Urine Ketones Negative (Negative) Urine Blood Negative (Negative) Urine Nitrite Negative (Negative) Urine Bilirubin Negative (Negative) Urine Urobilinogen Negative (Negative) Ur Leukocyte Esterase Negative (Negative) Administered Medications Discontinued Medications Sodium Chloride (Nss) 500 mls @ 999 mls/hr IV .Q31M ONE Stop: 01/28/24 12:52 Last Infusion: 01/28/24 13:40 Dose: Infused Documented By: Admin: 01/28/24 12:50 Dose: 999 mls/hr Documented By: NHUNG Piperacillin Sod/Tazobactam Sod (Zosyn) 4.5 gm in 120 mls @ 240 mls/hr IV NOW ONE Stop: 01/28/24 15:02 Last Infusion: 01/28/24 15:07 Dose: Infused Documented By: Admin: 01/28/24 14:46 Dose: 240 mls/hr Documented By: NHUNG Ketorolac Tromethamine (Ketorolac Tromethamine 15 Mg/Ml Vial) 10 mg IV NOW ONE Stop: 01/28/24 12:23 Last Admin: 01/28/24 12:41 Dose: 10 mg Documented By: OLVIN Morphine Sulfate (Morphine Sulfate 2 Mg/Ml Carp) 2 mg IV NOW STA Stop: 01/28/24 12:23 Last Admin: 01/28/24 12:42 Dose: 2 mg Documented By: OLVIN Ondansetron HCl (Ondansetron Inj 2 Mg/Ml 2 Ml Vial) 4 mg IV NOW STA Stop: 01/28/24 12:23 Last Admin: 01/28/24 12:41 Dose: 4 mg Documented By: OLVIN Imaging Data Radiologist's Impression: Chest X-Ray 01/28/24 12:22 XR chest 1V portable HISTORY: Right upper quadrant pain. COMPARISON: Chest 07/28/2022. FINDINGS: There are low lung volumes with mild elevation of the right hemidiaphragm. There is no pneumothorax. No pleural effusions. No focal lung consolidations to suggest a pneumonia. No evidence for pulmonary edema. The cardiac silhouette remains borderline enlarged. IMPRESSION: No acute process. ACT 112: Negative or not required by law. Electronically signed by: Santino Del Cid M.D. 01/28/2024 1:02 PM Abdomen/Pelvis CT 01/28/24 12:[address] WITHOUT CONTRAST CT DOSE: 1463.9 mGy.cm HISTORY: ruq pain, poss K stone or GB--dye allergy TECHNIQUE: Multiaxial CT images of the abdomen and pelvis were performed without contrast. A dose lowering technique was utilized adhering to the principles of ALARA. COMPARISON STUDY: Abdomen and pelvis CT 10/22/2020. FINDINGS: There are punctate calcified granuloma seen within the lung bases. No pneumoperitoneum. No pneumatosis. No acute fractures identified. Tiny fat- containing umbilical hernia. Degenerative changes again noted within the lumbar spine. There is a diverticulum at the second portion of the duodenum, unchanged. Calcified granuloma within the central liver. The unenhanced spleen, adrenal glands, and pancreas are unremarkable. There are few small gallstones. There is questionable minimal pericholecystic fat stranding. The common bile duct is normal in caliber. Mild bilateral perinephric edema. This is likely chronic. Bilateral nephrolithiasis. No ureteral stones. No hydronephrosis. Calcified plaque within the normal caliber abdominal aorta. No retroperitoneal or pelvic lymphadenopathy. No pelvic free fluid. Normal bladder. The prostate gland is borderline enlarged. Suboptimal evaluation for bowel pathology due to the lack of intravenous and oral contrast. However, there is no definite bowel wall thickening or obstruction. Normal appendix. A few sigmoid diverticula. No evidence for acute diverticulitis. IMPRESSION: 1. Cholelithiasis with questionable minimal pericholecystic fat stranding. Clinical correlation recommended to assess for a developing acute cholecystitis. 2. Bilateral nephrolithiasis. No ureteral stones. No hydronephrosis. 3. No definite bowel wall thickening or obstruction. 4. Normal appendix. ACT 112: Negative or not required by law. Electronically signed by: Santino Del Cid M.D. 01/28/2024 2:28 PM Gallbladder Ultrasound 01/28/24 14:33 ABDOMINAL ULTRASOUND, RIGHT UPPER QUADRANT HISTORY: ruq pain, abnl ct. COMPARISON: Abdomen and pelvis CT 01/28/2024. FINDINGS: Pancreas: The pancreas demonstrates a normal echotexture. Liver: There is a 12 mm calcification within the right hepatic lobe. Otherwise, normal liver. Gallbladder: There are few small gallstones. Gallbladder wall thickness is at the upper limits of normal measuring 2.7 mm. No pericholecystic fluid identified. The technologist was unable to assess for a sonographic Selby's sign given the patient's pain medication. CBD: 6 mm. Right kidney: No hydronephrosis. The patient's renal calculi are better appreciated on the same day abdomen and pelvis CT. Subcentimeter upper pole cyst noted. IMPRESSION: 1. Cholelithiasis. Gallbladder wall thickness is at the upper limits of normal. 2. Normal caliber common bile duct. 3. No hydronephrosis. The patient's renal calculi are better appreciated on the same day abdomen and pelvis CT Triny ACT 112: Negative or not required by law. Electronically signed by: Santino Del Cid M.D. 01/28/2024 3:35 PM Discharge Plan Visit Data Chief Complaint: Flank Pain Stated Complaint: RIGHT SIDE FLANK PAIN ED Provider: Eugenio Valentine Discharge Problem: Right upper quadrant pain, Acute cholecystitis Patient Disposition: Admitted As Inpatient Condition: Fair Forms Stand Alone Forms: [employer] Prescriptions Prescriptions: No Action aspirin [Iggy Low Dose Aspirin] 81 mg tablet,delayed release (DR/EC) 81 mg PO QDL atorvastatin 40 mg tablet 40 mg PO HS Qty: 90 3RF clopidogrel 75 mg tablet 75 mg PO QAM nitroglycerin [Nitrostat] 0.4 mg tablet, sublingual 0.4 mg Sublingual UD PRN (Reason: Chest Pain) Biofreeze (menthol) 4 % gel 1 appln TOP QID PRN (Reason: pain) Qty: 89 0RF ondansetron 4 mg tablet,disintegrating 4 mg PO Q6H PRN (Reason: nausea and vomiting) Qty: 30 0RF amlodipine 5 mg tablet 5 mg PO BID Qty: 180 2RF (DME) Dexcom G6 Window Air Conditioner Installer Misc See Rx Instructions .Route Qty: 1 3RF Rx Instructions: As directed (DME) Dexcom G7 Window Air Conditioner Installer Misc See Rx Instructions .ROUTE .MEDSUPPLY Qty: 1 0RF Rx Instructions: Use daily to check blood glucose arginine (L-arginine) 500 mg capsule 500 mg PO DAILY Qty: 360 12RF (DME) Dexcom G7 Sensor Device See Rx Instructions .ROUTE .MEDSUPPLY Qty: 9 3RF Rx Instructions: Use to check blood glucose 3 times daily and as needed ezetimibe [Zetia] 10 mg tablet 10 mg PO DAILY Qty: 90 3RF isosorbide mononitrate 30 mg tablet extended release 24 hr 30 mg PO DAILY Qty: 30 5RF metformin 500 mg tablet 500 mg PO BID Qty: 180 1RF colchicine 0.6 mg tablet 0.6 mg PO BID PRN (Reason: gout) docusate sodium 100 mg capsule 100 mg PO BID PRN (Reason: Constipation) (DME) FreeStyle Lite Strips Strip See Dose Instructions .ROUTE .MEDSUPPLY Qty: 100 5RF Dose Instruction: As directed Rx Instructions: Use to test TID Toujeo SoloStar U-300 Insulin 300 unit/mL (1.5 mL) insulin pen See Rx Instructions SQ .COMPLEX 90 Days Qty: 16.5 1RF Rx Instructions: inject 34 units QAM and 26 units QPM subcut ; atenolol 25 mg tablet 12.5 mg PO HS Qty: 45 3RF folic acid 1 mg tablet 1 mg PO QDL Patient Comments: PT STATES HE TAKES 1000 MCG DAILY. spironolactone 25 mg tablet 25 mg PO QAM acetaminophen 325 mg Tablet 325 mg PO QID PRN (Reason: Pain) cephalexin 500 mg capsule 500 mg PO QID Rx Instructions: STARTED 01/20/24 FOR 10 DAYS. ergocalciferol (vitamin D2) [Vitamin D2] 1,250 mcg (50,000 unit) Capsule 1,250 mcg PO WK B-complex with vitamin C [Vitamin B Complex C W/B-12] Tablet 1 tab PO DAILY Referrals Referrals: Jl Adams III, CRNP [Primary Care Provider] -
[2024-01-28] MEDS: ONDANSETRON INJ 2 MG/ML 2 ML VIAL IV STA (12:41)
[2024-01-28] MEDS: KETOROLAC TROMETHAMINE 15 MG/ML VIAL IV ONE (12:41)
[2024-01-28] MEDS: MoRPHine SULFATE 2 MG/ML CARP IV STA (12:42)
[2024-01-28] MEDS: SODIUM CHLORIDE 0.9% 500 ML IV ONE (12:50)
--- NOTE | 2024-01-28 13:04 | XRay Report ---
XR chest 1V portable HISTORY: Right upper quadrant pain. COMPARISON: Chest 07/28/2022. FINDINGS: There are low lung volumes with mild elevation of the right hemidiaphragm. There is no pneu mothorax. No pleural effusions. No focal lung consolidations to suggest a pneumonia. No evidence for pulmonary edema. The cardiac silhouette remains borderline enlarged. IMPRESSION: No acute process. ACT 112: Negative or not required by law. Electronically signed by: Santino Del Cid M.D. 01/28/2024 1:02 PM
[2024-01-28 13:07] LABS: Basophils # (auto) 0.04 K/uL (0.00-0.20); Basophils % (auto) 0.4 %; Eosinophils # (auto) 0.28 K/uL (0.00-0.50); Eosinophils % (auto) 3.1 %; Hematocrit (blood only) 41.5 % (42.0-52.0); Hemoglobin 13.1 g/dl (14.0-18.0); Immature Granulocytes # (auto) 0.04 K/uL (0.01-0.20); Immature Granulocytes % (auto) 0.4 %; Lymphocytes # (auto) 2.59 K/uL (1.20-3.40); Lymphocytes % (auto) 28.3 %; Mean Corpuscular Hemoglobin 26.1 pg (25.0-34.0); Mean Corpuscular Hgb Conc 31.6 g/dL (32.0-36.0); Mean Corpuscular Volume 82.7 fL (80.0-100.0); Mean Platelet Volume 11.9 fL (9.4-12.4); Monocytes # (auto) 0.86 K/uL (0.11-0.59); Monocytes % (auto) 9.4 %; Neutrophils # (auto) 5.35 K/uL (1.40-6.50); Neutrophils % (auto) 58.4 %; Platelet Count 228 K/uL (130-400); RDW Coefficient of Variation 15.6 % (11.5-14.5); RDW Standard Deviation 46.5 fL (36.4-46.3); Red Blood Count 5.02 M/uL (4.70-6.10); White Blood Count 9.16 K/ul (4.8-10.8)
[2024-01-28 13:10] LABS: Alanine Aminotransferase 17 U/L (7-52); Albumin Globulin Ratio 1.5 (0.9-2); Albumin Level 4.4 gm/dl (3.4-5.0); Alkaline Phosphatase 52 U/L (34-104); Anion Gap 7 (3-11); Aspartate Aminotransferase 18 U/L (13-39); BUN Creatinine Ratio 19.3 (10-20); Bilirubin,Total 0.5 mg/dl (0.2-1.0); Blood Urea Nitrogen 22 mg/dl (6-23); Calcium 8.8 mg/dl (8.6-10.3); Carbon Dioxide 25 mmol/L (21-32); Chloride 109 mmol/L (98-107); Est GFR (Non-African American) 62.1 ml/min; Globulin 2.9 gm/dl (2.5-4.0); Glucose 123 mg/dl (70-99(Fasting)); Lipase 42 U/L (11-82); Potassium 4.3 mmol/L (3.5-5.1); Sodium 141 mmol/L (136-145); Total Protein 7.3 gm/dl (6.0-8.3)
[2024-01-28 13:16] LABS: Troponin I High Sensitivity 5.6 pg/ml (0-20)
--- NOTE | 2024-01-28 14:30 | CT Scan Report ---
ABDOMEN AND PELVIS CT WITHOUT CONTRAST CT DOSE: 1463.9 mGy.cm HISTORY: ruq pain, poss K stone or GB--dye allergy TECHNIQUE: Multiaxial CT images of the abdomen and pelvis were performed without contrast. A dose lo wering technique was utilized adhering to the principles of ALARA. COMPARISON STUDY: Abdomen and pelvis CT 10/22/2020. FINDINGS: There are punctate calcified granuloma seen within the lung bases. No pneumoperitoneum. No pneumatosis. No acute fractures identified. Tiny fat-containing umbilical hernia. Degenerative change s again noted within the lumbar spine. There is a diverticulum at the second portion of the duodenum, unchanged. Calcified granuloma within the central liver. The unenhanced spleen, adrenal glands, and pancreas are unremarkable. There are few small gallstones. There is questionable minimal pericholecys tic fat stranding. The common bile duct is normal in caliber. Mild bilateral perinephric edema. This is likely chronic. Bilateral nephrolithiasis. No ureteral stones. No hydronephrosis. Calcified plaque within the normal caliber abdominal aorta. No retroperitoneal or pelvic lymphadenopathy. No pelvic f ree fluid. Normal bladder. The prostate gland is borderline enlarged. Suboptimal evaluation for bowel pathology due to the lack of intravenous and oral contrast. However, there is no definite bowel wall thickening or obstruction. Normal appendix. A few sigmoid diverticula. No evidence for acute diverti culitis. IMPRESSION: 1. Cholelithiasis with questionable minimal pericholecystic fat stranding. Clinical correlation recom mended to assess for a developing acute cholecystitis. 2. Bilateral nephrolithiasis. No ureteral stones. No hydronephrosis. 3. No definite bowel wall thickening or obstruction. 4. Normal appendix. ACT 112: Negative or not required by law. Electronically signed by: Santino Del Cid M.D. 01/28/2024 2:28 PM
[2024-01-28] MEDS: PIPERACILLIN/TAZOBACTAM 4.5 GM/120 ML BAG IV ONE (14:46)
[2024-01-28 15:01] LABS: Appearance Urine Clear (Clear); Bilirubin Urine Negative (Negative); Blood Urine Negative (Negative); Color Urine Yellow; Glucose Urine UA Negative (Negative); Ketones Urine Negative (Negative); Leukocyte Esterase Urine Negative (Negative); Nitrite Urine Negative (Negative); Protein Urine Negative (Negative); Urobilinogen Urine Negative (Negative); pH Urine 5.5 (4.5-7.5)
--- NOTE | 2024-01-28 15:36 | Ultrasound Report ---
ABDOMINAL ULTRASOUND, RIGHT UPPER QUADRANT HISTORY: ruq pain, abnl ct. COMPARISON: Abdomen and pelvis CT 01/28/2024. FINDINGS: Pancreas: The pancreas demonstrates a normal echotexture. Liver: There is a 12 mm calcification within the right hepatic lobe. Otherwise, normal liver. Gallbladder: There are few small gallstones. Gallbladder wall thickness is at the upper limits of nor mal measuring 2.7 mm. No pericholecystic fluid identified. The technologist was unable to assess for a sonographic Selby's sign given the patient's pain medication. CBD: 6 mm. Right kidney: No hydronephrosis. The patient's renal calculi are better appreciated on the same day a bdomen and pelvis CT. Subcentimeter upper pole cyst noted. IMPRESSION: 1. Cholelithiasis. Gallbladder wall thickness is at the upper limits of normal. 2. Normal caliber common bile duct. 3. No hydronephrosis. The patient's renal calculi are better appreciated on the same day abdomen and pelvis CT December ACT 112: Negative or not required by law. Electronically signed by: Santino Del Cid M.D. 01/28/2024 3:35 PM
--- NOTE | 2024-01-28 16:05 | Communication Note ---
Date of Service: January 28, 2024 Called for pnt with cholelithiasis and possible early cholecystitis. H/O cardiac stent, on plavix/asa. admit to medicine, abx. Hold Plavix. cards consult for risk assessment. Recommend HIDA scan. Surgery would be early next week after 3-4 days off plavix. could consider discharge and f/u as outpatient if symptoms improve.
--- NOTE | 2024-01-28 16:09 | History & Physical Report ---
Date of Service January 28, 2024 Assessment & Plan (1) Acute cholecystitis: Plan: Acute onset of RUQ abdominal pain on 01/27 No leukocytosis; afebrile A/P CT as well as gallbladder ultrasound concerning for development of acute cholecystitis Zosyn 4.5 g IV q8h Zofran as needed for nausea vomiting Pain control with acetaminophen; Dilaudid as needed for breakthrough pain Hold Plavix, continue aspirin HIDA scan ordered, pending Will keep strict n.p.o. prior to HIDA scan D5LR at 140 mL/hr for maintance fluids General surgery consulted; however, earliest available surgery may be 3-4 days Cardiology consulted for preop risk assessment given history of cardiac heart stents on ASA/Plavix A.m. CBC, BMP, mag (2) Type 2 diabetes mellitus with diabetic neuropathy: Plan: Last A1c at 6.5% on 09/26/23 Strict n.p.o. for now Hold metformin Patient is normally on Toujeo 34u QAM and 26u QPM Lantus 28 u BID while inpatient SSI; with target BSG range 110-140mg/dL, CF 15, carb ratio 5 T2DM diet BSG ACHS Adjust regimen as needed AM A1c (3) Sleep apnea: Plan: CPAP HS + 2 L supp O2 Patient may use home CPAP if he brings it in (4) Hypertension: Plan: Continue amlodipine, atenolol Patient had not started on isosorbide mononitrate prior to coming to the hospital; hold for now (5) CAD, multiple vessel: Plan: Continue aspirin, hold Plavix (6) S/P coronary artery stent placement: Plan: Last stent placed 3 years ago (7) Renal artery stenosis: Plan Disposition: Admit to [facility] telemetry Full code N.p.o. for now; D5LR at 140mL/hr DVT PPx: SCDs; continue ASA, hold plavix History of Present Illness Chief Complaint: Flank pain Primary Care Provider: Jl Adams III, CRNP James ([place]) is a pleasant 78yo male with PMH of HTN, kidney disease, BPH, sleep apnea, recurrent nephrolithiasis, T2DM, renal artery stenosis, asbestosis exposure, multiple sclerosis, CAD s/p coronary artery stent, BRITTANY, and asthma. He presented for acute onset of right upper quadrant abdominal pain on 01/27. Patient reports that the problem started 1 month ago, and that he has been having intermittent right upper quadrant pain. Initially he thought it was secondary to his heart (extensive cardiac history), but then he had an ultrasound done at the [facility] and found "sludge" from his gallbladder. He was originally scheduled for a HIDA scan on February 05. However, this morning around 9:30 AM, he developed significant sharp, stabbing pain in his RUQ lasting greater than 2 hours. Radiation to the right flank, and right lower back. It came on abruptly after he ate a banana this morning. He rated the pain 8/10 at its worst; 0 out of 10 now after receiving pain medication in the ED. He was not doing anything active that time, was just sitting with his . Patient did not take any of his regular morning medications today; did not take aspirin or Plavix. Patient does have a history of heart stents; last stent was placed 3 years ago. Patient is on Plavix for history of a stroke. However, he does not has been taking all of it in the past for a week at a time without difficulty. Patient follows with Dr. Aleman for cardiology. History of kidney stones. No recent change in diet. No prior issues with his gallbladder. Patient had a normal BM this morning, but then developed diarrhea shortly after his RUQ pain developed. Patient has been taking Tylenol for the pain over the past month. Patient is hypertensive 170/76, as well as bradycardic at 51 bpm at time of admission. ED course: Zosyn 4.5 g IV Morphine 2 mg IV Toradol 10 mg IV Zofran 4 mg IV NSS 500 mL IV ROS: Patient endorses RUQ pain, nausea, dry heaves, bloating, diarrhea, lightheadedness, RODRIGUEZ, and dry cough (chronic). Patient denies fever, chills, night-sweats, dizziness, chest pain, chest palpitations, SOB, pleuritic CP or vomiting. Allergies Allergy/AdvReac Type Severity Reaction Status Date / Time Iodinated Contrast Media Allergy Severe Anaphylaxis Verified 01/28/24 15:41 walnut Allergy Severe Tongue Verified 01/28/24 15:41 swelling, dyspnea simvastatin AdvReac Mild GI symptoms Verified 01/28/24 15:41 Home Medications Medication Instructions Recorded Confirmed Type metformin 500 mg tablet 500 mg PO BID #180 tabs 07/09/19 01/28/24 Rx colchicine 0.6 mg tablet 0.6 mg PO BID PRN gout 08/14/19 01/28/24 History aspirin 81 mg tablet,delayed 81 mg PO QDL 09/07/19 01/28/24 History release (Iggy Low Dose Aspirin) atorvastatin 40 mg tablet 40 mg PO HS #90 tabs 09/07/19 01/28/24 Rx clopidogrel 75 mg tablet 75 mg PO QAM 09/07/19 01/28/24 History menthol 4 % topical gel (Biofreeze 1 appln topical QID PRN pain #89 mL 09/07/19 01/28/24 Rx (menthol)) nitroglycerin 0.4 mg sublingual 0.4 mg sublingual UD PRN Chest Pain 09/07/19 01/28/24 History tablet (Nitrostat) ondansetron 4 mg disintegrating 4 mg PO Q6H PRN nausea and 10/22/19 01/28/24 Rx tablet vomiting #30 tabs blood sugar diagnostic (FreeStyle #100 ea 04/15/20 01/18/24 Rx Lite Strips) docusate sodium 100 mg capsule 100 mg PO BID PRN Constipation 04/15/20 01/28/24 History folic acid 1 mg tablet 1 mg PO QDL 04/15/20 01/28/24 History insulin glargine U-300 conc 300 See Rx Instructions subcut 04/15/20 01/28/24 Rx unit/mL (1.5 mL) subcutaneous pen .COMPLEX 90 days #16.5 mL (Toujaneto SoloStar U-300 Insulin) amlodipine 5 mg tablet 5 mg PO BID #180 tabs 04/17/20 01/28/24 Rx spironolactone 25 mg tablet 25 mg PO QAM 12/09/20 01/28/24 History atenolol 25 mg tablet 12.5 mg (1/2 x 25 mg) PO HS #45 12/10/20 01/28/24 Rx tabs acetaminophen 325 mg tablet 325 mg PO QID PRN Pain 04/08/22 01/28/24 History blood-glucose meter,continuous #1 ea 05/04/23 01/18/24 Rx (Dexcom G6 Director Of Infection Prevention) blood-glucose meter,continuous #1 ea 05/04/23 01/18/24 Rx (Dexcom G7 Director Of Infection Prevention) arginine (L-arginine) 500 mg 500 mg PO DAILY #360 caps 11/02/23 01/28/24 Rx capsule blood-glucose sensor (Dexcom G7 #9 ea 11/22/23 01/18/24 Rx Sensor device) ezetimibe 10 mg tablet (Zetia) 10 mg PO DAILY #90 tabs 01/27/24 01/28/24 Rx isosorbide mononitrate 30 mg 30 mg PO DAILY #30 tabs 01/27/24 01/28/24 Rx tablet,extended release 24 hr B-complex with vitamin C 1 tab PO DAILY 01/28/24 01/28/24 History cephalexin 500 mg capsule 500 mg PO QID 01/28/24 01/28/24 History ergocalciferol (vitamin D2) 1,250 1,250 mcg PO WK 01/28/24 01/28/24 History mcg (50,000 unit) capsule (Vitamin D2) Past Med/Surg History Problem List (Updated 01/28/24 @ 16:53 by Eugenio Valentine MD) Acute cholecystitis (Acute) Right upper quadrant pain (Acute) Acute cholecystitis Chest pain Obesity Allergic rhinitis (Chronic) Asthma (Chronic) Facet syndrome, lumbar (Chronic) Hypercholesterolemia (Chronic) Impotence, organic (Chronic) On continuous oral anticoagulation (Chronic) Vitamin D deficiency (Chronic) Kidney stones (Chronic) BRITTANY (generalized anxiety disorder) (Chronic) S/P coronary artery stent placement CAD, multiple vessel Nocturnal hypoxemia due to asthma Bradycardia Multiple sclerosis H/O vascular surgery History of 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 to asbestos Type 2 diabetes mellitus with diabetic neuropathy (Acute) IDDM Renal artery stenosis (Chronic) 50% Proximal right renal artery stenosis, no significant disease of the left renal artery 11/06/20 arteriogram Degeneration of cervical intervertebral disc (Chronic) Recurrent nephrolithiasis (Chronic) Solitary thyroid nodule (Chronic) Sleep apnea (Chronic) CPAP + O2 @ 2 LPM qHS Lumbar canal stenosis (Chronic) Disc degeneration, lumbar (Chronic) Benign prostatic hyperplasia with urinary obstruction (Chronic) Hypertension (Chronic) Kidney disease (Chronic) Medical History Temporal headache temporal bx 04/2022 neg per pt. planning for lumbar puncture at [facility] 08/04/22. Stenosis of right subclavian artery Approx 60% per 02/2022 vascular records- recommend BP be taken in left arm for accuracy purposes Dysphagia Has had ongoing for 30+ yrs, no issues with at present Carotid artery stenosis Per 01/2022 Carotid Doppler= <50% stenosis in the bilateral ICAs; >50% arterial occlusive disease in right subclavian History of stroke 5+ years ago, no residual effects > Plavix CAD (coronary artery disease) JAQUI x2 to prox and mid LAD (11/06/20), BMS x 1 to LCx (2009) Gout HLD (hyperlipidemia) Hearing deficit B/L RODRIGUEZ Pulmonary nodule Chronic cough MVP (mitral valve prolapse) MV anatomy "normal" per 10/26/20 echo ENZO (acute kidney injury) History of tinnitus Poor circulation Homocystinemia Surgical History History of temporal artery biopsy History of lithotripsy (12/16/20) History of anesthesia reaction History of esophagogastroduodenoscopy (EGD) History of colonoscopy History of cardiac catheterization Status post laser lithotripsy of ureteral calculus S/P cystoscopy with ureteral stent placement Status post blepharoplasty of both eyes S/P hernia repair H/O sinus surgery Previous back surgery Family History Sister Ovarian cancer Congestive heart disease Heart disease Cancer Brother Heart disease Unknown Ovarian cancer Other No family history of adverse response to anesthesia No family history of bleeding disorder Denies family history of Prostate cancer Myocardial infarction Breast cancer Colorectal cancer Social History Smoking Status: Never smoker Second Hand Exposure: No; Do You Dip or Chew Tobacco: No; Hx Alcohol Use: No Hx Substance Use: No Preferred Language: Maltese Communication Ability: Effective Visual Impairment: Limited Hearing Ability: Use of Hearing Aid Forester Silviculture Required: No Beliefs That Will Affect Care: None marital status: Current Living Situation: Spouse current occupational status: retired How many Children do You have: 3 Feels Safe at Home: Yes Childhood Exposure to Second-Hand Smoke: Yes Diet: regular caffeine: No during the past year weight has: decreased > 10 lbs Dental Care, Regularly: Yes Physical Activity Frequency: Daily Seatbelt Use: always Sunscreen Use: No Assistive Devices: Cane, CPAP, Denture - Upper, Glasses, Hearing Aid - Bilateral and Oxygen - at Night Review of Systems Review of Systems: See HPI above Physical Exam Physical Exam: General: no acute distress; pleasant affect; non-toxic appearing; well- nourished; cooperative; 98% SpO2 on RA HEENT: normocephalic, atraumatic; no scleral icterus; PERRLA w/ EOMs intact; moist mucus membrane; vision and hearing grossly intact Neck: supple; no lymphadenopathy; trachea midline Skin: warm, dry without signs of tenting; no cyanosis; no rashes, bruising, lesions, or erythema noted CV: chest wall NTP; RRR; S1/S2 normal; no murmurs/rubs/gallops; pulses intact and symmetric at radial, DP, and PT Lungs: no acute respiratory distress; symmetrical chest wall expansion; clear breath sounds across all lung polanco w/o adventitious sounds; no wheezing ABD: Soft; RUQ is TTP; BS present; no rebound/guarding; bloating; distention secondary to patient's body habitus; positive Selby sign; negative McBurney's point tenderness MSK: no tics or fasciculations; no edema noted in the LEs b/l, nonerythematous Neuro: A&Ox3; normal mood and affect; fluent speech; no focal deficits; sensation grossly intact in the LEs b/l Results & Data Results & Data Vital Signs (Past 12 Hours) Vital Signs Temp Pulse Resp BP Pulse Ox O2 Del Method 01/28/24 12:37 51 L 01/28/24 12:35 98 Room Air 01/28/24 12:11 36.9 C 52 L 20 170/79 H 95 Room Air Laboratory Results Abnormal lab results 01/28/24 Range/Units 12:34 Hgb 13.1 L (14.0-18.0) g/dl Hct 41.5 L (42.0-52.0) % MCHC 31.6 L (32.0-36.0) g/dL RDW Std Deviation 46.5 H (36.4-46.3) fL RDW Coeff of Annie 15.6 H (11.5-14.5) % Mathews # (Auto) 0.86 H (0.11-0.59) K/uL Chloride 109 H (98-107) mmol/L Glucose 123 H (70-99(Fasting)) mg/dl Diagnostic Findings Chest X-Ray 01/28/24 12:22 XR chest 1V portable HISTORY: Right upper quadrant pain. COMPARISON: Chest 07/28/2022. FINDINGS: There are low lung volumes with mild elevation of the right hemidiaphragm. There is no pneumothorax. No pleural effusions. No focal lung consolidations to suggest a pneumonia. No evidence for pulmonary edema. The cardiac silhouette remains borderline enlarged. IMPRESSION: No acute process. ACT 112: Negative or not required by law. Electronically signed by: Santino Del Cid M.D. 01/28/2024 1:02 PM Abdomen/Pelvis CT 01/28/24 12:[address] WITHOUT CONTRAST CT DOSE: 1463.9 mGy.cm HISTORY: ruq pain, poss K stone or GB--dye allergy TECHNIQUE: Multiaxial CT images of the abdomen and pelvis were performed without contrast. A dose lowering technique was utilized adhering to the principles of ALARA. COMPARISON STUDY: Abdomen and pelvis CT 10/22/2020. FINDINGS: There are punctate calcified granuloma seen within the lung bases. No pneumoperitoneum. No pneumatosis. No acute fractures identified. Tiny fat-con taining umbilical hernia. Degenerative changes again noted within the lumbar spine. There is a diverticulum at the second portion of the duodenum, unchanged. Calcified granuloma within the central liver. The unenhanced spleen, adrenal glands, and pancreas are unremarkable. There are few small gallstones. There is questionable minimal pericholecystic fat stranding. The common bile duct is normal in caliber. Mild bilateral perinephric edema. This is likely chronic. Bilateral nephrolithiasis. No ureteral stones. No hydronephrosis. Calcified plaque within the normal caliber abdominal aorta. No retroperitoneal or pelvic lymphadenopathy. No pelvic free fluid. Normal bladder. The prostate gland is borderline enlarged. Suboptimal evaluation for bowel pathology due to the lack of intravenous and oral contrast. However, there is no definite bowel wall thickening or obstruction. Normal appendix. A few sigmoid diverticula. No evidence for acute diverticulitis. IMPRESSION: 1. Cholelithiasis with questionable minimal pericholecystic fat stranding. Clinical correlation recommended to assess for a developing acute cholecystitis. 2. Bilateral nephrolithiasis. No ureteral stones. No hydronephrosis. 3. No definite bowel wall thickening or obstruction. 4. Normal appendix. ACT 112: Negative or not required by law. Electronically signed by: Santino Del Cid M.D. 01/28/2024 2:28 PM Gallbladder Ultrasound 01/28/24 14:33 ABDOMINAL ULTRASOUND, RIGHT UPPER QUADRANT HISTORY: ruq pain, abnl ct. COMPARISON: Abdomen and pelvis CT 01/28/2024. FINDINGS: Pancreas: The pancreas demonstrates a normal echotexture. Liver: There is a 12 mm calcification within the right hepatic lobe. Otherwise, normal liver. Gallbladder: There are few small gallstones. Gallbladder wall thickness is at the upper limits of normal measuring 2.7 mm. No pericholecystic fluid identified. The technologist was unable to assess for a sonographic Selby's sign given the patient's pain medication. CBD: 6 mm. Right kidney: No hydronephrosis. The patient's renal calculi are better appreciated on the same day abdomen and pelvis CT. Subcentimeter upper pole cyst noted. IMPRESSION: 1. Cholelithiasis. Gallbladder wall thickness is at the upper limits of normal. 2. Normal caliber common bile duct. 3. No hydronephrosis. The patient's renal calculi are better appreciated on the same day abdomen and pelvis CT Triny ACT 112: Negative or not required by law. Electronically signed by: Santino Del Cid M.D. 01/28/2024 3:35 PM ECG Additional Comments: ECG revealed Code Status & VTE Plan VTE Prophylaxis Plan VTE Prophylaxis will be ordered: Yes Supervising Physician Co-Signing Physician Notes Patient seen and examined, chart reviewed, case discussed with aSntino Berger PA-C and I agree with the assessment and plan as above except as otherwise noted Labs and images reviewed 78-year-old male who presents with specked of acute cholecystitis, abdominal pain worsened with meals. Surgery was consulted. Patient is on dual antiplatelet therapy with history of cardiac stents, may hold Plavix and continue aspirin monotherapy and to resume DAPT postoperatively. He has had no recent anginal symptoms, and had a stress test for his initial pain prior to identifying cholecystitis which was normal. As he has not had anginal symptoms, does not appear to be in acute CHF, and has had a stress test in the last month without ischemic findings he is a low cardiac risk and may proceed to surgery when recommended by surgical team. Last echo was with EF 55-60%. Continued on Zosyn on admission. HIDA pending, n.p.o. pending HIDA. If surgery is delayed may have clears if pain tolerates, and make n.p.o. midnight prior to surgery. Agree with assessment and management above. PG Care Time/CCT Total # of Minutes Spent Total Time Spent with Patient: Total time spent is greater than 50% in coordination of care (as documented) at patient's floor/unit and/or counseling patient: C[place] [id number] INT INP/OBS CARE 3/75MIN Patient Type Established History Comprehensive Exam Comprehensive Medical Decision Making High Complexity Diagnoses Acute cholecystitis K81.0 Type 2 diabetes mellitus with diabetic neuropathy E11.40 Sleep apnea G47.30 Hypertension I10 CAD, multiple vessel I25.10 S/P coronary artery stent placement Z95.5 Renal artery stenosis I70.1
[2024-01-28] MEDS ORDERED: GLUCOSE 10 TAB/TUBE PO PRN (17:10)
[2024-01-28] MEDS ORDERED: DEXTROSE 50% 50 ML SYRINGE IV PRN (17:10)
[2024-01-28] MEDS ORDERED: GLUCAGON FOR INJ 1 MG VIAL SQ PRN (17:10)
[2024-01-28] MEDS ORDERED: DOCUSATE SODIUM 100 MG CAP PO PRN (18:17)
[2024-01-28] MEDS: HYDROmorphone INJ 0.5 MG/0.5 ML SYR IV PRN (18:33)
[2024-01-28] MEDS: D5W AND LACTATED RINGERS 1,000 ML IV SCH (18:45)
--- NOTE | 2024-01-28 18:59 | Surgery Consultation ---
Date of Consultation January 28, 2024 Assessment & Plan (1) Acute cholecystitis: The patient has been admitted on the hospitalist service. From a surgical perspective we recommend the following: Provide analgesics Provide antiemetics Antibiotics in form of Zosyn have been initiated and this should continue Would recommend keeping the patient n.p.o. for the present time IV fluids to be utilized for hydration while the patient is n.p.o. Serial labs to be followed The patient has a significant cardiovascular history would like to ascertain that the patient indeed has cholecystitis prior to undergoing any surgical intervention and therefore recommend a HIDA scan being performed (the patient was scheduled to have this in February of this year). In addition, would be prudent to get a cardiology evaluation prior to entertaining any surgical intervention, and this has been ordered by the primary service It would be preferable to hold the patient's Plavix, and his most recent cardiology evaluation from January this has indicated the patient may hold his Plavix for any planned surgical procedures. Will be preferable to have the patient off his Plavix for approximately 3 to 4 days Will reassess the patient's symptoms tomorrow and if patient has improvement consideration can be given to discharging the patient and pursuing outpatient cholecystectomy but this is yet to be determined Additional recommendations will be made based on his clinical course as it unfolds Supervising Physician Co-Signing Physician Notes pnt d/w LUCY Keating, labs and imaging reviewed, agree w/ above. Suspected cholecystitis, on plavix fo h/o coronary stent. HIDA pending. Possible cholecystectomy early next week after a few days off of plavix. History of Present Illness Reason for Consultation: Cholecystitis Attending Physician: Howie Thorne MD History of Present Illness This is a 78-year-old male who presented to the emergency department secondary to chest pain/upper abdominal pain. The patient says that he has been having this type of pain for approximately 6 weeks. He says that the pain does not radiate and he does not report any modifying factors. He specifically notes that is not related to meals. Patient was seen at the [place] [facility] where he reports he had an ultrasound performed that that showed biliary sludge and the ultimate plan was for patient undergo HIDA scan and that was scheduled for February this year. The patient presented to the emergency department because he had recurrence of the above-noted pain that was more severe than what it usually felt like. He had some nausea without vomiting. He denied any fevers, shakes, or chills. Since arrival to the hospital the patient has had labs and imaging which I independent reviewed. He did undergo a chest x-ray that showed no evidence of pneumonia. A CT scan of the abdomen and pelvis was performed that showed the patient had cholelithiasis with some questionable pericholecystic fat stranding. There is no dilatation of the common bile duct. A gallbladder ultrasound was performed that showed gallstones with gallbladder wall thickness at the upper limits of normal. The common bile duct appeared normal on this study as well. No pericholecystic fluid was noted on the ultrasound. Labs included CBC were white blood cell count platelet count were normal. Hemoglobin and hematocrit are 13.1 and 41.5. Chemistry profile showed sodium and potassium as well as the BUN and creatinine were normal. There is no elevation of the patient's LFTs or lipase. Urinalysis was not indicative of infection. It is nowhere the mention that the patient does carry a significant cardiovascular history. The patient has had a TIA in 2016. The patient notes that during this episode he had right-sided numbness of his body and for this reason he takes Plavix. He does note that he has made a full recovery without recurrence of the symptoms. The patient is also undergone cardiac catheterization with stent placement most recently in November 2020. At this time the patient underwent stent placement to the left anterior descending artery. The patient notes that from a cardiovascular standpoint he does get chest discomfort at times but was told that this could be related to underlying biliary pathology. The patient denies any shortness of breath. He notes that he has had a recent stress test and this was performed in January of this year. This test demonstrated no ischemic changes and he was noted to have fair exercise tolerance on this study. At the time of my interview the patient was resting comfortably in bed he was in no distress. Allergies Allergy/AdvReac Type Severity Reaction Status Date / Time Iodinated Contrast Media Allergy Severe Anaphylaxis Verified 01/28/24 15:41 walnut Allergy Severe Tongue Verified 01/28/24 15:41 swelling, dyspnea simvastatin AdvReac Mild GI symptoms Verified 01/28/24 15:41 Home Medications Medication Instructions Recorded Confirmed Type metformin 500 mg tablet 500 mg PO BID #180 tabs 07/09/19 01/28/24 Rx colchicine 0.6 mg tablet 0.6 mg PO BID PRN gout 08/14/19 01/28/24 History aspirin 81 mg tablet,delayed 81 mg PO QDL 09/07/19 01/28/24 History release (Iggy Low Dose Aspirin) atorvastatin 40 mg tablet 40 mg PO HS #90 tabs 09/07/19 01/28/24 Rx clopidogrel 75 mg tablet 75 mg PO QAM 09/07/19 01/28/24 History menthol 4 % topical gel (Biofreeze 1 appln topical QID PRN pain #89 mL 09/07/19 01/28/24 Rx (menthol)) nitroglycerin 0.4 mg sublingual 0.4 mg sublingual UD PRN Chest Pain 09/07/19 01/28/24 History tablet (Nitrostat) ondansetron 4 mg disintegrating 4 mg PO Q6H PRN nausea and 10/22/19 01/28/24 Rx tablet vomiting #30 tabs blood sugar diagnostic (FreeStyle #100 ea 04/15/20 01/18/24 Rx Lite Strips) docusate sodium 100 mg capsule 100 mg PO BID PRN Constipation 04/15/20 01/28/24 History folic acid 1 mg tablet 1 mg PO QDL 04/15/20 01/28/24 History insulin glargine U-300 conc 300 See Rx Instructions subcut 04/15/20 01/28/24 Rx unit/mL (1.5 mL) subcutaneous pen .COMPLEX 90 days #16.5 mL (Toujeo SoloStar U-300 Insulin) amlodipine 5 mg tablet 5 mg PO BID #180 tabs 04/17/20 01/28/24 Rx spironolactone 25 mg tablet 25 mg PO QAM 12/09/20 01/28/24 History atenolol 25 mg tablet 12.5 mg (1/2 x 25 mg) PO HS #45 12/10/20 01/28/24 Rx tabs acetaminophen 325 mg tablet 325 mg PO QID PRN Pain 04/08/22 01/28/24 History blood-glucose meter,continuous #1 ea 05/04/23 01/18/24 Rx (Dexcom G6 Type Disk Quality Control Supervisor) blood-glucose meter,continuous #1 ea 05/04/23 01/18/24 Rx (Dexcom G7 Type Disk Quality Control Supervisor) arginine (L-arginine) 500 mg 500 mg PO DAILY #360 caps 11/02/23 01/28/24 Rx capsule blood-glucose sensor (Dexcom G7 #9 ea 11/22/23 01/18/24 Rx Sensor device) ezetimibe 10 mg tablet (Zetia) 10 mg PO DAILY #90 tabs 01/27/24 01/28/24 Rx isosorbide mononitrate 30 mg 30 mg PO DAILY #30 tabs 01/27/24 01/28/24 Rx tablet,extended release 24 hr B-complex with vitamin C 1 tab PO DAILY 01/28/24 01/28/24 History cephalexin 500 mg capsule 500 mg PO QID 01/28/24 01/28/24 History ergocalciferol (vitamin D2) 1,250 1,250 mcg PO WK 01/28/24 01/28/24 History mcg (50,000 unit) capsule (Vitamin D2) Patient History Medical History Temporal headache temporal bx 04/2022 neg per pt. planning for lumbar puncture at [facility] 08/04/22. Stenosis of right subclavian artery Approx 60% per 02/2022 vascular records- recommend BP be taken in left arm for accuracy purposes Dysphagia Has had ongoing for 30+ yrs, no issues with at present Carotid artery stenosis Per 01/2022 Carotid Doppler= <50% stenosis in the bilateral ICAs; >50% arterial occlusive disease in right subclavian History of stroke 5+ years ago, no residual effects > Plavix CAD (coronary artery disease) JAQUI x2 to prox and mid LAD (11/06/20), BMS x 1 to LCx (2009) Gout HLD (hyperlipidemia) Hearing deficit B/L RODRIGUEZ Pulmonary nodule Chronic cough MVP (mitral valve prolapse) MV anatomy "normal" per 10/26/20 echo ENZO (acute kidney injury) History of tinnitus Poor circulation Homocystinemia Surgical History History of temporal artery biopsy History of lithotripsy (12/16/20) left laser lithotripsy ([facility]) History of anesthesia reaction hx post op ileus History of esophagogastroduodenoscopy (EGD) History of colonoscopy History of cardiac catheterization JAQUI x2 to LAD (11/06/20), stent x1 (2009) Status post laser lithotripsy of ureteral calculus S/P cystoscopy with ureteral stent placement cystoscopy, left ureteroscopy, laser lithotripsy, left ureteral stent (10/22/2020): Grade view 1, Tong #2, ET tube #8 at [facility] Status post blepharoplasty of both eyes and [place] [facility] [place] S/P hernia repair H/O sinus surgery Previous back surgery lumbar Family History Sister Ovarian cancer Congestive heart disease Heart disease Cancer Brother Heart disease Unknown Ovarian cancer Other No family history of adverse response to anesthesia No family history of bleeding disorder Denies family history of Prostate cancer Myocardial infarction Breast cancer Colorectal cancer Social History Smoking Status: Never smoker Second Hand Exposure: No; Do You Dip or Chew Tobacco: No; Hx Alcohol Use: No Hx Substance Use: No Preferred Language: Belarusian Communication Ability: Effective Visual Impairment: Limited Hearing Ability: Use of Hearing Aid Filler Block Inserter Remover Required: No Beliefs That Will Affect Care: None marital status: Current Living Situation: Spouse Current Living Situation Comment: Home current occupational status: retired How many Children do You have: 3 Other Information That Helps Us Care for You: No Feels Safe at Home: Yes Safety Concerns: Feels Safe At This Time Childhood Exposure to Second-Hand Smoke: Yes Diet: regular caffeine: No during the past year weight has: decreased > 10 lbs Dental Care, Regularly: Yes Physical Activity Frequency: Daily Seatbelt Use: always Sunscreen Use: No Assistive Devices: CPAP, Denture - Upper, Denture - Lower and Hearing Aid - Bilateral Review of Systems Review of Systems: All systems reviewed & are unremarkable except as noted in HPI & below Physical Exam Constitutional: WD/WN, vitals as above Eyes: + anicteric sclerae Wears glasses ENMT: Ears: no hearing impairment and no external ear abnormality Mouth: no oropharynx abnormality Neck: trachea midline Respiratory: normal respiratory effort, lungs clear to auscultation Cardiovascular: Rate/Rhythm: regular rate and regular rhythm Gastrointestinal (Abdomen): Abdomen is soft and nonrigid. It is nondistended. The patient did have some minor pain with palpation of the right upper quadrant he did not have any pain in any other areas of his abdomen. Musculoskeletal: No calf tenderness Skin: no rashes Neurologic: moves all extremities Psychiatric: A+Ox3, euthymic affect Results & Data Vital Signs (Past 12 Hours) Vital Signs Temp Pulse Pulse Resp BP BP Pulse Ox 01/28/24 18:17 36.8 C 46 L 18 169/74 H 96 01/28/24 17:29 47 L 20 148/81 H 94 01/28/24 12:37 51 L 01/28/24 12:35 98 01/28/24 12:11 36.9 C 52 L 20 170/79 H 95 O2 Del Method 01/28/24 18:17 Room Air 01/28/24 17:29 Room Air 01/28/24 12:37 01/28/24 12:35 Room Air 01/28/24 12:11 Room Air PG Care Time/CCT Total # of Minutes Spent Total Time Spent with Patient: Total time spent is greater than 50% in coordination of care (as documented) at patient's floor/unit and/or counseling patient: Coding Level of Care Code 62945 INT INP/OBS CARE 3/75MIN Diagnoses Acute cholecystitis K81.0
[2024-01-28] MEDS: Patient's WEIGHT Needed SCH (19:30)
[2024-01-28] MEDS: PIPERACILLIN/TAZOBACTAM 4.5 GM in DEXTROSE 5% MINI-B 100 ML IV SCH (20:36)
[2024-01-28] MEDS: ATORVASTATIN 40 MG TAB PO SCH (20:41)
[2024-01-28] MEDS: amLODIPine BESYLATE 5 MG TAB PO SCH (20:42)
[2024-01-28] MEDS: ATENOLOL 25 MG TABLET PO SCH (20:43)
[2024-01-28] MEDS ORDERED: INSULIN ASPART PER UNIT CHARGE SC SCH (21:00)
[2024-01-29] MEDS: INSULIN ASPART PER UNIT CHARGE SC SCH ×2 (00:01→20:26)
[2024-01-29] MEDS: LANTUS PER UNIT CHARGE SQ SCH ×2 (00:35→21:42)
[2024-01-29 06:58] LABS: Basophils # (auto) 0.02 K/uL (0.00-0.20); Basophils % (auto) 0.3 %; Eosinophils # (auto) 0.23 K/uL (0.00-0.50); Hematocrit (blood only) 39.8 % (42.0-52.0); Hemoglobin 12.3 g/dl (14.0-18.0); Immature Granulocytes # (auto) 0.01 K/uL (0.01-0.20); Immature Granulocytes % (auto) 0.1 %; Lymphocytes % (auto) 24.6 %; Mean Corpuscular Hemoglobin 25.9 pg (25.0-34.0); Mean Corpuscular Hgb Conc 30.9 g/dL (32.0-36.0); Mean Corpuscular Volume 83.8 fL (80.0-100.0); Mean Platelet Volume 11.8 fL (9.4-12.4); Monocytes # (auto) 0.81 K/uL (0.11-0.59); Monocytes % (auto) 10.5 %; Neutrophils # (auto) 4.76 K/uL (1.40-6.50); Neutrophils % (auto) 61.5 %; Platelet Count 202 K/uL (130-400); RDW Coefficient of Variation 15.5 % (11.5-14.5); RDW Standard Deviation 47.3 fL (36.4-46.3); Red Blood Count 4.75 M/uL (4.70-6.10); White Blood Count 7.73 K/ul (4.8-10.8)
[2024-01-29 07:40] LABS: BUN Creatinine Ratio 13.2 (10-20); Calcium 8.6 mg/dl (8.6-10.3); Creatinine Clr Calc Pharmacy 64.1 ml/min; Est GFR (Non-African American) 57.8 ml/min; Magnesium 1.9 mg/dl (1.7-2.4); Potassium 4.7 mmol/L (3.5-5.1)
[2024-01-29] MEDS: EZETIMIBE 10 MG TAB PO SCH (08:45)
[2024-01-29] MEDS: SPIRONOLACTONE 25 MG TAB PO SCH (08:46)
--- NOTE | 2024-01-29 10:07 | Surgery Progress Note ---
Date of Service January 29, 2024 Assessment & Plan (1) Acute cholecystitis: Plan: Symptomatic cholelithiasis w/ possible acute cholecystitis. plavix on hold, cards eval and hida pending f/u IDALIA appreciate cards and medicine assistance cont to hold plavix plan for robotic assisted laparoscopic cholecystectomy with possible cholangiogram early this week risks discussed to include but not limited to bleeding, infection, retained stone, bile leak, open surgery, damage to surrounding structures including bile duct, need for future or more extensive surgery, failure to treat symptoms, and risks of anesthesia. surgery will follow if hida neg and tolerates diet w/ no pain, could [facility] Admission and Anticipated Discharge Date Admission Date: January 28, 2024 Subjective admitted with concern for cholecystitis, feels a little better Physical Exam Constitutional: WD/WN, vitals as above + obese Respiratory: normal respiratory effort, lungs clear to auscultation Cardiovascular: RRR, no murmur, no edema Gastrointestinal (Abdomen): Percussion/Palpation: + abdomen tender (RUQ ttp) and + hernia (umbilical); no guarding and abdomen not rigid Results & Data Vital Signs (Past 12 Hours) Vital Signs Temp Pulse Pulse Resp BP Pulse Ox O2 Del Method 01/29/24 08:11 36.4 C L 40 L 18 118/57 L 96 Nasal Cannula 01/29/24 07:03 40 L 01/29/24 03:20 36.5 C 42 L 18 118/65 95 Room Air 01/29/24 00:29 44 L 18 99 01/29/24 00:15 45 L 01/28/24 23:07 36.3 C L 42 L 16 129/71 90 Room Air O2 Flow Rate 01/29/24 08:11 2 01/29/24 07:03 01/29/24 03:20 01/29/24 00:29 2 01/29/24 00:15 01/28/24 23:07 PG Care Time/CCT Total # of Minutes Spent Total Time Spent with Patient: Total time spent is greater than 50% in coordination of care (as documented) at patient's floor/unit and/or counseling patient: Coding Level of Care Code 34150 SUB INP/OBS CARE 2/35MIN Diagnoses Acute cholecystitis K81.0
--- NOTE | 2024-01-29 11:45 | Hospitalist Progress Note ---
Date of Service January 29, 2024 Assessment & Plan (1) Acute cholecystitis: Plan: - Acute onset of RUQ abdominal pain on 01/27. - No leukocytosis and afebrile on admission. - CT A/P showed cholelithiasis with questionable Danis cholecystic fat stranding. No dilation of common bile duct. - Gallbladder ultrasound showed gallstones with gallbladder wall thickness at the upper limits of normal. No pericholecystic fluid noted on ultrasound. - LFTs and lipase normal. - Trial of low-fat low fiber diet - Zosyn 4.5 g IV q8h - Zofran as needed for nausea vomiting - Pain control with acetaminophen; Dilaudid as needed for breakthrough pain - Hold Plavix, continue aspirin - HIDA scan ordered; however, this will most likely not be completed until 01/31/2024 - General surgery consulted; however, earliest available surgery may be 3-4 days (2) Type 2 diabetes mellitus with diabetic neuropathy: Plan: Last A1c at 6.5% on 09/26/23 Patient is normally on Toujeo 34u QAM and 26u QPM Lantus 28 u BID while inpatient SSI; with target BSG range 110-140mg/dL, CF 15, carb ratio 5 T2DM diet BSG ACHS Adjust regimen as needed Hgb A1c pending (3) Sleep apnea: Plan: CPAP HS + 2 L supp O2 Patient may use home CPAP if he brings it in (4) Hypertension: Plan: Continue amlodipine, atenolol Patient had not started on isosorbide mononitrate prior to coming to the hospital; hold for now (5) CAD, multiple vessel: Plan: Continue aspirin, hold Plavix (6) S/P coronary artery stent placement: Plan: Last stent placed 3 years ago (7) Renal artery stenosis: Plan Started low-fat low fiber diet. Monitor how patient tolerates it. Reviewed general surgery's notes. CODE STATUS: Full code DVT PPx: SCDs; continue ASA, hold plavix Admission and Anticipated Discharge Date Admission Date: January 28, 2024 Subjective Patient seen and evaluated at bedside. He reports that his pain is well controlled with his medication. He describes biliary colic symptoms when the pain dose increase. He denies having problems with his gallbladder in the past. He has a history of recurrent kidney stones and states that this feels different than his past kidney stones. We will trial a diet today and see how he tolerates it. Patient does have significant cardiac history and takes Plavix due to history of strokes. He reports that he recently had a full cardiac workup with Dr. Aleman. Patient denies any nausea, vomiting, diarrhea. He reports minor RUQ abdominal pain that radiates to his back at this time. Denies any other complaints currently. Physical Exam Physical Exam: General: No acute distress, nondiaphoretic, well-developed, well-nourished. Skin: The skin was without rashes, erythema, edema, or bruising. Cardiac: Regular rate and rhythm without murmurs gallops or rubs. Pulm: Clear to auscultation bilaterally without wheezes, rales or rhonchi. No retractions or accessory muscle use. Abdominal: Soft. RUQ tender to palpation. BS present. No rebound tenderness or guarding. Neuro: A&O x3. No focal neurological deficits. Results & Data Results & Data Vital Signs (Past 12 Hours) Vital Signs Temp Pulse Pulse Resp BP Pulse Ox O2 Del Method 01/29/24 08:11 36.4 C L 40 L 18 118/57 L 96 Nasal Cannula 01/29/24 07:03 40 L 01/29/24 03:20 36.5 C 42 L 18 118/65 95 Room Air 01/29/24 00:29 44 L 18 99 01/29/24 00:15 45 L O2 Flow Rate 01/29/24 08:11 2 01/29/24 07:03 01/29/24 03:20 01/29/24 00:29 2 01/29/24 00:15 Laboratory Results Reviewed CBC Reviewed CMP Reviewed UA PG Care Time/CCT Total # of Minutes Spent Total Time Spent with Patient: Total time spent is greater than 50% in coordination of care (as documented) at patient's floor/unit and/or counseling patient: Coding Level of Care Code 16503 SUB INP/OBS CARE 2/35MIN Diagnoses Acute cholecystitis K81.0 Type 2 diabetes mellitus with diabetic neuropathy E11.40 Sleep apnea G47.30 Hypertension I10 CAD, multiple vessel I25.10 S/P coronary artery stent placement Z95.5 Renal artery stenosis I70.1
[2024-01-29] MEDS: FOLIC ACID 1 MG TAB PO SCH (12:30)
[2024-01-29] MEDS: ASPIRIN 81 MG ECTAB PO SCH (12:30)
[2024-01-29] MEDS: GLUCOSE 40% GEL 15 GM TUBE PO PRN (16:00)
[2024-01-29] MEDS: CARBOHYDRATES FOR HYPOGLYCEMIA PO PRN (16:19)
[2024-01-29] MEDS: COUGH DROP (SUGAR FREE) LOZ 24 LOZ/1 BOX BUCCAL STA (16:21)
[2024-01-30 05:55] LABS: Basophils # (auto) 0.04 K/uL (0.00-0.20); Basophils % (auto) 0.5 %; Eosinophils # (auto) 0.32 K/uL (0.00-0.50); Eosinophils % (auto) 4.3 %; Hematocrit (blood only) 38.4 % (42.0-52.0); Hemoglobin 11.9 g/dl (14.0-18.0); Immature Granulocytes # (auto) 0.02 K/uL (0.01-0.20); Immature Granulocytes % (auto) 0.3 %; Lymphocytes # (auto) 1.75 K/uL (1.20-3.40); Lymphocytes % (auto) 23.7 %; Mean Corpuscular Hemoglobin 25.9 pg (25.0-34.0); Mean Corpuscular Volume 83.7 fL (80.0-100.0); Mean Platelet Volume 11.6 fL (9.4-12.4); Monocytes # (auto) 0.87 K/uL (0.11-0.59); Monocytes % (auto) 11.8 %; Neutrophils # (auto) 4.37 K/uL (1.40-6.50); Neutrophils % (auto) 59.4 %; Platelet Count 195 K/uL (130-400); RDW Coefficient of Variation 15.5 % (11.5-14.5); RDW Standard Deviation 47.2 fL (36.4-46.3); Red Blood Count 4.59 M/uL (4.70-6.10); White Blood Count 7.37 K/ul (4.8-10.8)
[2024-01-30 06:07] LABS: Albumin Level 3.8 gm/dl (3.4-5.0); BUN Creatinine Ratio 13.8 (10-20); Bilirubin Direct 0.1 mg/dl (0-0.2); Bilirubin,Total 0.4 mg/dl (0.2-1.0); Calcium 8.3 mg/dl (8.6-10.3); Creatinine Clr Calc Pharmacy 53.3 ml/min; Est GFR (African American) 53.8 ml/min; Est GFR (Non-African American) 46.4 ml/min; Potassium 3.9 mmol/L (3.5-5.1); Total Protein 6.4 gm/dl (6.0-8.3)
--- NOTE | 2024-01-30 07:03 | Electrocardiogram Report ---
Test Reason : Blood Pressure : / mmHG Vent. Rate : 051 BPM Atrial Rate : 051 BPM P-R Int : 164 ms QRS Dur : 088 ms QT Int : 442 ms P-R-T Axes : 010 -13 000 degrees QTc Int : 407 ms Sinus bradycardia with sinus arrhythmia Otherwise normal ECG When compared with ECG of 13-APR-2022 06:02, No significant change was found Confirmed by Camilo Kimble ([id number]) on 01/30/2024 7:03:00 AM Referred By: [facility] Confirmed By:Antoine Kimble
[2024-01-30 07:12] LABS: Estimated Average Glucose 143 mg/dl; Hemoglobin A1C 6.6 % (4.5-5.6)
--- NOTE | 2024-01-30 09:00 | Surgery Progress Note ---
Date of Service January 30, 2024 Assessment & Plan (1) Acute cholecystitis: Plan: HIDA scan ordered, not completed yet cont to hold plavix cont IV antbx WBC wnl if hida neg and tolerates diet w/ no pain, could consider f/u as outpatient for surgery per Dr. Vega Admission and Anticipated Discharge Date Admission Date: January 28, 2024 Supervising Physician Co-Signing Physician Notes pnt S&E, agree with above. cholelithiasis w/ suspected cholecystitis, on plavix fo h/o coronary stent. feels better, thought hurts after palpation earlier today. HIDA pending, may not be done til tomorrow. abd soft, ttp RUQ. labs normal. given symptoms, if HIDA can not be performed today we may proceed with surgery tomorrow. if no plans for HIDA today, then he may have clears, npo after [place]. Hold plavix. cleared by cards. Subjective pt reports continued RUQ discomfort Review of Systems Gastrointestinal: + abdominal pain; no nausea and no vomit ing Physical Exam Constitutional: well developed, cooperative and comfortable; no acute distress Respiratory: normal respiratory effort and able to speak in complete sentences; no respiratory distress Gastrointestinal (Abdomen): Inspection/Auscultation: + visible herniation (umbilical reducible ); abdomen not distended Percussion/Palpation: + abdomen tender (TTP RUQ) Results & Data Vital Signs (Past 12 Hours) Vital Signs Temp Pulse Pulse Resp BP Pulse Ox O2 Del Method 01/30/24 08:02 42 L 01/30/24 07:10 98.2 F 46 L 14 168/74 H 95 Room Air 01/30/24 02:22 97.9 F 55 L 18 107/55 L 97 CPAP 01/29/24 23:30 45 L 01/29/24 22:41 97.9 F 47 L 16 108/53 L 95 CPAP PG Care Time/CCT Total # of Minutes Spent Total Time Spent with Patient: Total time spent is greater than 50% in coordination of care (as documented) at patient's floor/unit and/or counseling patient: Coding Level of Care Code 14511 SUB INP/OBS CARE 09/29MIN Diagnoses Acute cholecystitis K81.0
--- NOTE | 2024-01-30 10:49 | Hospitalist Progress Note ---
Date of Service January 30, 2024 Assessment & Plan (1) Acute cholecystitis: Plan: - Acute onset of RUQ abdominal pain on 01/27. - No leukocytosis and afebrile on admission. - CT A/P showed cholelithiasis with questionable Danis cholecystic fat stranding. No dilation of common bile duct. - Gallbladder ultrasound showed gallstones with gallbladder wall thickness at the upper limits of normal. No pericholecystic fluid noted on ultrasound. - LFTs and lipase normal. - Trial of low-fat low fiber diet, not well-tolerated. Diet downgraded to clear liquids 01/30/24. - Zosyn 4.5 g IV q8h - Zofran as needed for nausea vomiting - Pain control with acetaminophen; Dilaudid as needed for breakthrough pain - Hold Plavix, continue aspirin - HIDA scan ordered; however, this will most likely not be completed until 01/31/2024 - General surgery consulted; plan for lap dottie 01/31/2024. -- N.p.o. at midnight (2) Type 2 diabetes mellitus with diabetic neuropathy: Plan: - HgbA1c 6.6 on 01/29/2024 - Patient is normally on Toujeo 34u QAM and 26u QPM - Lantus 12 u BID while inpatient - SSI; with target BSG range 110-140mg/dL, CF 15, carb ratio 5 - T2DM diet - BSG ACHS - Adjust regimen as needed (3) Sleep apnea: Plan: CPAP HS + 2 L supp O2 Patient may use home CPAP if he brings it in (4) Hypertension: Plan: Continue amlodipine, atenolol Patient had not started on isosorbide mononitrate prior to coming to the hospital; hold for now (5) CAD, multiple vessel: Plan: Continue aspirin, hold Plavix (6) S/P coronary artery stent placement: Plan: Last stent placed 3 years ago (7) Renal artery stenosis: Plan Downgraded diet to clear liquids. Reviewed general surgery's notes. Plan for lap dottie tomorrow, 01/31/2024. N.p.o. at midnight. Continue to hold Plavix. CODE STATUS: Full code DVT PPx: SCDs; continue ASA, hold plavix Admission and Anticipated Discharge Date Admission Date: January 28, 2024 Subjective Patient seen and evaluated at bedside. He was walking back from the bathroom when I first entered the room. He was started on low fat low fiber diet yesterday, however this was not very well tolerated and patient required pain medication prior to eating. I downgraded his diet to clear liquids for today. He states that he met with Dr. Vega earlier today and karen sinclair is planned for tomorrow, 01/31/2024. Per review of surgery note from today, hopefully HIDA scan can be performed prior to surgery tomorrow. Patient has no additional complaints at this time. Physical Exam Physical Exam: General: No acute distress, nondiaphoretic, well-developed, well-nourished. Skin: The skin was without rashes, erythema, edema, or bruising. Cardiac: Regular rate and rhythm without murmurs gallops or rubs. Pulm: Clear to auscultation bilaterally without wheezes, rales or rhonchi. No retractions or accessory muscle use. Abdominal: Soft. RUQ tender to palpation. BS present. No rebound tenderness or guarding. Neuro: A&O x3. No focal neurological deficits. Results & Data Results & Data Vital Signs (Past 12 Hours) Vital Signs Temp Pulse Pulse Resp BP Pulse Ox O2 Del Method 01/30/24 08:02 42 L 01/30/24 07:10 36.8 C 46 L 14 168/74 H 95 Room Air 01/30/24 02:22 36.6 C 55 L 18 107/55 L 97 CPAP 01/29/24 23:30 45 L Laboratory Results Reviewed CBC Reviewed CMP PG Care Time/CCT Total # of Minutes Spent Total Time Spent with Patient: Total time spent is greater than 50% in coordination of care (as documented) at patient's floor/unit and/or counseling patient: Coding Level of Care Code 57771 SUB INP/OBS CARE 3/50MIN Diagnoses Acute cholecystitis K81.0 Type 2 diabetes mellitus with diabetic neuropathy E11.40 Sleep apnea G47.30 Hypertension I10 CAD, multiple vessel I25.10 S/P coronary artery stent placement Z95.5 Renal artery stenosis I70.1
[2024-01-30] MEDS: HYDROmorphone INJ 1 MG/ML SYRINGE IV PRN (13:07)
[2024-01-30] MEDS: ONDANSETRON INJ 2 MG/ML 2 ML VIAL IV PRN (13:21)
[2024-01-30] MEDS: PLASMA-LYTE A 1,000 ML IV SCH (19:59)
[2024-01-31 06:10] LABS: Basophils # (auto) 0.04 K/uL (0.00-0.20); Basophils % (auto) 0.5 %; Eosinophils # (auto) 0.35 K/uL (0.00-0.50); Eosinophils % (auto) 4.6 %; Hematocrit (blood only) 41.7 % (42.0-52.0); Hemoglobin 13.2 g/dl (14.0-18.0); Immature Granulocytes # (auto) 0.02 K/uL (0.01-0.20); Immature Granulocytes % (auto) 0.3 %; Lymphocytes # (auto) 2.39 K/uL (1.20-3.40); Lymphocytes % (auto) 31.3 %; Mean Corpuscular Hgb Conc 31.7 g/dL (32.0-36.0); Mean Corpuscular Volume 82.2 fL (80.0-100.0); Mean Platelet Volume 11.7 fL (9.4-12.4); Monocytes # (auto) 0.95 K/uL (0.11-0.59); Monocytes % (auto) 12.4 %; Neutrophils # (auto) 3.89 K/uL (1.40-6.50); Neutrophils % (auto) 50.9 %; Platelet Count 204 K/uL (130-400); RDW Coefficient of Variation 15.4 % (11.5-14.5); RDW Standard Deviation 45.4 fL (36.4-46.3); Red Blood Count 5.07 M/uL (4.70-6.10); White Blood Count 7.64 K/ul (4.8-10.8)
[2024-01-31 06:21] LABS: Albumin Level 4.1 gm/dl (3.4-5.0); BUN Creatinine Ratio 12.1 (10-20); Bilirubin Direct 0.1 mg/dl (0-0.2); Bilirubin,Total 0.7 mg/dl (0.2-1.0); Calcium 8.9 mg/dl (8.6-10.3); Creatinine Clr Calc Pharmacy 58.7 ml/min; Est GFR (African American) 60.3 ml/min; Total Protein 6.7 gm/dl (6.0-8.3)
[2024-01-31] MEDS: INSULIN ASPART PER UNIT CHARGE SC SCH ×2 (06:23→19:41)
[2024-01-31] MEDS: LACTATED RINGER'S 1,000 ML IV SCH (09:19)
--- NOTE | 2024-01-31 09:38 | Anesthesiology Consultation ---
Date of Service January 31, 2024 Assessment & Plan Chart Review Chart Review: Acceptable Risk for Surgery and order entry representative initiated Consults Requested none History Surgery Operation Date: 01/31/24 08:15 Proposed Procedures p Robotic Laparoscopic Cholecystectomy - Indio Vega DO, FACS Height/Weight Height: 5 ft 11 in Weight: 105.1 kg Allergies Allergy/AdvReac Type Severity Reaction Status Date / Time Iodinated Contrast Media Allergy Severe Anaphylaxis Verified 01/28/24 15:41 walnut Allergy Severe Tongue Verified 01/28/24 15:41 swelling, dyspnea simvastatin AdvReac Mild GI symptoms Verified 01/28/24 15:41 Medications Home Medications Medication Instructions Recorded Confirmed Last Taken metformin 500 mg tablet 500 mg PO BID #180 tabs 07/09/19 01/28/24 01/27/24 colchicine 0.6 mg tablet 0.6 mg PO BID PRN gout 08/14/19 01/28/24 Unknown aspirin 81 mg tablet,delayed 81 mg PO QDL 09/07/19 01/28/24 01/27/24 release (Iggy Low Dose Aspirin) atorvastatin 40 mg tablet 40 mg PO HS #90 tabs 09/07/19 01/28/24 01/27/24 clopidogrel 75 mg tablet 75 mg PO QAM 09/07/19 01/28/24 01/27/24 menthol 4 % topical gel (Biofreeze 1 appln topical QID PRN pain #89 mL 09/07/19 01/28/24 Unknown (menthol)) nitroglycerin 0.4 mg sublingual 0.4 mg sublingual UD PRN Chest Pain 09/07/19 01/28/24 Unknown tablet (Nitrostat) ondansetron 4 mg disintegrating 4 mg PO Q6H PRN nausea and 10/22/19 01/28/24 Unknown tablet vomiting #30 tabs blood sugar diagnostic (FreeStyle #100 ea 04/15/20 01/18/24 Unknown Lite Strips) docusate sodium 100 mg capsule 100 mg PO BID PRN Constipation 04/15/20 01/28/24 Unknown folic acid 1 mg tablet 1 mg PO QDL 04/15/20 01/28/24 01/27/24 insulin glargine U-300 conc 300 See Rx Instructions subcut 04/15/20 01/28/24 01/27/24 unit/mL (1.5 mL) subcutaneous pen .COMPLEX 90 days #16.5 mL (Sarika SolJoaquin U-300 Insulin) amlodipine 5 mg tablet 5 mg PO BID #180 tabs 04/17/20 01/28/24 01/27/24 spironolactone 25 mg tablet 25 mg PO QAM 12/09/20 01/28/24 01/27/24 atenolol 25 mg tablet 12.5 mg (1/2 x 25 mg) PO HS #45 12/10/20 01/28/24 01/27/24 tabs acetaminophen 325 mg tablet 325 mg PO QID PRN Pain 04/08/22 01/28/24 Unknown blood-glucose meter,continuous #1 ea 05/04/23 01/18/24 Unknown (Dexcom G6 Lawn Caretaker) blood-glucose meter,continuous #1 ea 05/04/23 01/18/24 Unknown (Dexcom G7 Lawn Caretaker) arginine (L-arginine) 500 mg 500 mg PO DAILY #360 caps 11/02/23 01/28/24 01/27/24 capsule blood-glucose sensor (Dexcom G7 #9 ea 11/22/23 01/18/24 Unknown Sensor device) ezetimibe 10 mg tablet (Zetia) 10 mg PO DAILY #90 tabs 01/27/24 01/28/24 01/27/24 isosorbide mononitrate 30 mg 30 mg PO DAILY #30 tabs 01/27/24 01/28/24 Unknown tablet,extended release 24 hr B-complex with vitamin C 1 tab PO DAILY 01/28/24 01/28/24 01/27/24 cephalexin 500 mg capsule 500 mg PO QID 01/28/24 01/28/24 01/28/24 08:00 ergocalciferol (vitamin D2) 1,250 1,250 mcg PO WK 01/28/24 01/28/24 Unknown mcg (50,000 unit) capsule (Vitamin D2) Active Medications Generic Name Dose Route Start Last Admin Trade Name Freq PRN Reason Stop Dose Admin Amlodipine Besylate 5 mg 01/28/24 21:00 01/31/24 08:47 Amlodipine Besylate 5 Mg Tab PO 02/27/24 20:59 Not Given BID REAGAN Aspirin 81 mg 01/29/24 11:30 01/30/24 13:08 Aspirin 81 Mg Ectab PO 02/28/24 11:29 81 mg QDL REAGAN Administration Atenolol 12.5 mg 01/28/24 21:00 01/30/24 20:18 Atenolol 25 Mg Tablet PO 02/27/24 20:59 Not Given HS REAGAN Atorvastatin Calcium 40 mg 01/28/24 21:00 01/30/24 20:08 Atorvastatin 40 Mg Tab PO 02/27/24 20:59 40 mg HS REAGAN Administration Ezetimibe 10 mg 01/29/24 09:00 01/31/24 08:49 Ezetimibe 10 Mg Tab PO 02/28/24 08:59 Not Given DAILY REAGAN Folic Acid 1 mg 01/29/24 11:30 01/30/24 13:07 Folic Acid 1 Mg Tab PO 02/28/24 11:29 1 mg QDL REAGAN Administration Glucose 15 - 30 gm 01/28/24 17:10 01/29/24 16:00 Glucose 40% Gel 15 Gm Tube PO 02/27/24 17:09 15 gm UD PRN Administration Hypoglycemia Protocol Protocol Hydromorphone HCl 0.5 mg 01/28/24 18:17 01/30/24 21:35 Hydromorphone Inj 0.5 Mg/0.5 Ml Syr IV 02/11/24 18:16 0.5 mg Q4H PRN Administration Moderate Pain (4,5,6) on NRS Hydromorphone HCl 1 mg 01/28/24 18:17 01/30/24 13:07 Hydromorphone Inj 1 Mg/Ml Syringe IV 02/11/24 18:16 1 mg Q4H PRN Administration Severe Pain (7,8,9,10) on NRS Piperacillin Sod/Tazobactam 100 mls @ 25 mls/hr 01/28/24 20:00 01/31/24 08:46 Sod 4.5 gm/ Dextrose IV 02/07/24 19:59 Infused Q8H REAGAN Infusion Protocol Lactated Ringer's 1,000 mls @ 15 mls/hr 01/31/24 09:15 01/31/24 09:19 Lr IV 03/01/24 09:14 15 mls/hr .Q24H REAGAN Administration Insulin Aspart 0 units 01/31/24 06:00 01/31/24 06:23 Insulin Aspart Per Unit Charge SC 03/01/24 05:59 Not Given Q6 REAGAN Insulin Glargine 12 units 01/29/24 21:00 01/31/24 08:06 Lantus Per Unit Charge SQ 02/28/24 20:59 Not Given BID REAGAN Miscellaneous 15 - 30 gm 01/28/24 17:10 01/29/24 16:19 Carbohydrates For Hypoglycemia PO 02/27/24 17:09 15 gm UD PRN Administration Hypoglycemia Protocol Ondansetron HCl 4 mg 01/28/24 18:17 01/30/24 13:21 Ondansetron Inj 2 Mg/Ml 2 Ml Vial IV 02/27/24 18:16 4 mg Q6H PRN Administration Nausea Spironolactone 25 mg 01/29/24 09:00 01/31/24 08:49 Spironolactone 25 Mg Tab PO 02/28/24 08:59 Not Given QAM REAGAN NPO Date Last Intake of Fluids: 01/30/24 Time Last Intake of Fluids: 21:30 Date Last Intake of Solids: 01/30/24 Time Last Intake of Solids: 18:00 Past Medical History Medical History Temporal headache temporal bx 04/2022 neg per pt. planning for lumbar puncture at [facility] 08/04/22. Stenosis of right subclavian artery Approx 60% per 02/2022 vascular records- recommend BP be taken in left arm for accuracy purposes Dysphagia Has had ongoing for 30+ yrs, no issues with at present Carotid artery stenosis Per 01/2022 Carotid Doppler= <50% stenosis in the bilateral ICAs; >50% arterial occlusive disease in right subclavian History of stroke 5+ years ago, no residual effects > Plavix CAD (coronary artery disease) JAQUI x2 to prox and mid LAD (11/06/20), BMS x 1 to LCx (2009) Gout HLD (hyperlipidemia) Hearing deficit B/L RODRIGUEZ Pulmonary nodule Chronic cough MVP (mitral valve prolapse) MV anatomy "normal" per 10/26/20 echo ENZO (acute kidney injury) History of tinnitus Poor circulation Homocystinemia Past Family History Family History Sister Ovarian cancer Congestive heart disease Heart disease Cancer Brother Heart disease Unknown Ovarian cancer Other No family history of adverse response to anesthesia No family history of bleeding disorder Denies family history of Prostate cancer Myocardial infarction Breast cancer Colorectal cancer Past Surgical History Surgical History History of temporal artery biopsy History of lithotripsy (12/16/20) left laser lithotripsy ([facility]) History of anesthesia reaction hx post op ileus History of esophagogastroduodenoscopy (EGD) History of colonoscopy History of cardiac catheterization JAQUI x2 to LAD (11/06/20), stent x1 (2009) Status post laser lithotripsy of ureteral calculus S/P cystoscopy with ureteral stent placement cystoscopy, left ureteroscopy, laser lithotripsy, left ureteral stent (10/22/2020): Grade view 1, Tong #2, ET tube #8 at [facility] Status post blepharoplasty of both eyes and [place] [facility] [place] S/P hernia repair H/O sinus surgery Previous back surgery lumbar Social History Smoking Status: Never smoker Do You Dip or Chew Tobacco: No Hx Alcohol Use: No Hx Substance Use: No substance use type: does not use Physical Exam Vital Signs Last Vital Signs Temp 36.9 C 01/31/24 09:14 Pulse 56 L 01/31/24 09:14 Resp 20 01/31/24 09:14 BP 161/72 H 01/31/24 09:14 Pulse Ox 96 01/31/24 09:14 O2 Del Method Room Air 01/31/24 09:14 O2 Flow Rate 2 01/31/24 07:12 Testing Laboratory Results 01/31/24 05:30 01/31/24 05:30 Hemoglobin A1c 6.6 % (4.5-5.6) H 01/29/24 06:37 Urine Color Yellow 01/28/24 14:50 Urine Appearance Clear (Clear) 01/28/24 14:50 Urine pH 5.5 (4.5-7.5) 01/28/24 14:50 Ur Specific [place] 1.020 (1.000-1.030) 01/28/24 14:50 Urine Protein Negative (Negative) 01/28/24 14:50 Urine Glucose (UA) Negative (Negative) 01/28/24 14:50 Urine Ketones Negative (Negative) 01/28/24 14:50 Urine Nitrite Negative (Negative) 01/28/24 14:50 Ur Leukocyte Esterase Negative (Negative) 01/28/24 14:50 01/31/24 01/31/24 01/31/24 08:53 06:20 00:27 POC Glucose 108 H 102 H 92 Electrocardiogram Date: 01/28/24 Sinus bradycardia with sinus arrhythmia Otherwise normal ECG When compared with ECG of 13-APR-2022 06:02, No significant change was found Confirmed by Camilo Kimble ([id number]) on 01/30/2024 7:03:00 AM Echocardiogram Date: 10/26/20 EF: 55-60 LV Function: normal Cardiac Catheterization Date: 11/06/20 Summary: 1. Successful PCI of proximal to mid LAD with single drug-eluting stent (4.0 x 30 mm [place]; postdilated with 4.5 NC). 2. Successful PCI of distal LAD with single drug-eluting stent (2.5 x 12 mm [place]; postdilated with 3.0 NC). 3. Unsuccessful attempt to cross mid RCA chronic total occlusion antegrade. Distal RCA vessel fills via right to right bridging collaterals. 4. 50% proximal right renal artery stenosis. No significant left renal artery disease.
--- NOTE | 2024-01-31 09:53 | Surgery Progress Note ---
Date of Service January 31, 2024 Assessment & Plan (1) Acute cholecystitis: Plan: cholelithiasis w/ cholecystitis plan for robotic assisted laparoscopic cholecystectomy with possible cholangiogram today risks discussed to include but not limited to bleeding, infection, retained stone, bile leak, open surgery, damage to surrounding structures including bile duct, need for future or more extensive surgery, failure to treat symptoms, and risks of anesthesia. Admission and Anticipated Discharge Date Admission Date: January 28, 2024 Subjective cholecystitis, plavix on hold since admission. Increased pain and swelling on right side yest afternoon. Physical Exam Constitutional: WD/WN, vitals as above Gastrointestinal (Abdomen): Percussion/Palpation: + abdomen tender (ruq) and abdomen soft; no guarding and abdomen not rigid Results & Data Vital Signs (Past 12 Hours) Vital Signs Temp Pulse Pulse Pulse Resp BP Pulse Ox 01/31/24 09:14 36.9 C 56 L 20 161/72 H 96 01/31/24 07:12 36.5 C 47 L 14 163/79 H 97 01/31/24 06:57 47 L 01/31/24 03:16 36.7 C 55 L 18 125/64 92 01/30/24 23:04 57 L 01/30/24 22:17 36.7 C 55 L 18 138/68 90 O2 Del Method O2 Flow Rate 01/31/24 09:14 Room Air 01/31/24 07:12 CPAP 2 01/31/24 06:57 01/31/24 03:16 Room Air 01/30/24 23:04 01/30/24 22:17 Room Air Laboratory Results Laboratory Results - last 24 hr 01/30/24 01/30/24 01/30/24 11:35 17:24 20:19 WBC RBC Hgb Hct MCV MCH MCHC RDW Std Deviation RDW Coeff of Annie Plt Count MPV Immature Gran % (Auto) Neut % (Auto) Lymph % (Auto) [place] % (Auto) Eos % (Auto) Baso % (Auto) Neut # (Auto) Lymph # (Auto) [place] # (Auto) Eos # (Auto) Baso # (Auto) Immature Gran # (Auto) Sodium Potassium Chloride Carbon Dioxide Anion Gap BUN Creatinine Est Cr Clr Drug Dosing Est GFR ( Amer) Est GFR (Non-Af Amer) BUN/Creatinine Ratio Glucose POC Glucose 188 H 83 92 Calcium Total Bilirubin Direct Bilirubin AST ALT Alkaline Phosphatase Total Protein Albumin Lipase 01/31/24 01/31/24 01/31/24 00:27 05:30 06:20 WBC 7.64 RBC 5.07 Hgb 13.2 L Hct 41.7 L MCV 82.2 MCH 26.0 MCHC 31.7 L RDW Std Deviation 45.4 RDW Coeff of Annie 15.4 H Plt Count 204 MPV 11.7 Immature Gran % (Auto) 0.3 Neut % (Auto) 50.9 Lymph % (Auto) 31.3 [place] % (Auto) 12.4 Eos % (Auto) 4.6 Baso % (Auto) 0.5 Neut # (Auto) 3.89 Lymph # (Auto) 2.39 [place] # (Auto) 0.95 H Eos # (Auto) 0.35 Baso # (Auto) 0.04 Immature Gran # (Auto) 0.02 Sodium 142 Potassium 4.0 Chloride 108 H Carbon Dioxide 27 Anion Gap 7 BUN 16 Creatinine 1.32 Est Cr Clr Drug Dosing 58.7 Est GFR ( Amer) 60.3 Est GFR (Non-Af Amer) 52.0 BUN/Creatinine Ratio 12.1 Glucose 99 POC Glucose 92 102 H Calcium 8.9 Total Bilirubin 0.7 Direct Bilirubin 0.1 AST 19 ALT 15 Alkaline Phosphatase 50 Total Protein 6.7 Albumin 4.1 Lipase 16 01/31/24 08:53 WBC RBC Hgb Hct MCV MCH MCHC RDW Std Deviation RDW Coeff of Annie Plt Count MPV Immature Gran % (Auto) Neut % (Auto) Lymph % (Auto) [place] % (Auto) Eos % (Auto) Baso % (Auto) Neut # (Auto) Lymph # (Auto) [place] # (Auto) Eos # (Auto) Baso # (Auto) Immature Gran # (Auto) Sodium Potassium Chloride Carbon Dioxide Anion Gap BUN Creatinine Est Cr Clr Drug Dosing Est GFR ( Amer) Est GFR (Non-Af Amer) BUN/Creatinine Ratio Glucose POC Glucose 108 H Calcium Total Bilirubin Direct Bilirubin AST ALT Alkaline Phosphatase Total Protein Albumin Lipase PG Care Time/CCT Total # of Minutes Spent Total Time Spent with Patient: Total time spent is greater than 50% in coordination of care (as documented) at patient's floor/unit and/or counseling patient: Coding Level of Care Code 54507 SUB INP/OBS CARE 2/35MIN Diagnoses Acute cholecystitis K81.0
[2024-01-31] MEDS ORDERED: ONDANSETRON INJ 2 MG/ML 2 ML VIAL ONE (10:05)
[2024-01-31] MEDS ORDERED: DEXAMETHASONE SOD INJ 4 MG/ML VIAL ONE (10:05)
[2024-01-31] MEDS ORDERED: PROPOFOL IV EMULSION 10 MG/ML 20 ML VIAL IV ONE (10:05)
[2024-01-31] MEDS ORDERED: LIDOCAINE 2% 2 ML VIAL/AMP(20MG/ML) INFIL ONE (10:05)
[2024-01-31] MEDS ORDERED: ROCURONIUM BROMIDE 10 MG/ML 5 ML VIAL IV ONE ×2 (10:05→11:41)
[2024-01-31] MEDS ORDERED: fentaNYL citrate PF 100 MCG/2 ML VIAL ONE (10:06)
[2024-01-31] MEDS ORDERED: ATROPINE SULFATE 0.1 MG/ML 10ML SYR IV PRN (10:44)
[2024-01-31] MEDS ORDERED: ePHEDrine sulfate 50 MG/ML AMP IV PRN (10:44)
[2024-01-31] MEDS ORDERED: fentaNYL citrate PF 100 MCG/2 ML VIAL IV PRN (10:44)
[2024-01-31] MEDS ORDERED: ONDANSETRON INJ 2 MG/ML 2 ML VIAL IV PRN (10:44)
[2024-01-31] MEDS ORDERED: ACETAMINOPHEN 1000 MG/100 ML IV IV ONE (10:45)
[2024-01-31] MEDS ORDERED: SUGAMMADEX SODIUM 200 MG/2 ML VIAL IV ONE (11:46)
[2024-01-31] MEDS ORDERED: KETOROLAC 30 MG/ML VIAL ONE (11:52)
--- NOTE | 2024-01-31 12:01 | Operative Report ---
PG Post Operative Report Pre & Post Diagnosis Operation Date: 01/31/24 08:15 Pre-Op Diagnosis: Acute Cholecystitis Post-Op Diagnosis: Acute Cholecystitis I identified the patient and participated in the time-out.: Yes Procedure Operation Date: 01/31/24 08:15 Actual Procedures p Robotic Laparoscopic Cholecystectomy(Not Applicable) - Indio Vega DO, FACS Surgeon Indio Vega DO, FACS Wall Covering Installer Veronica Berkowitz Estimated Blood Loss 5 Findings Consistent with Post-Op Diagnosis Acute cholecystitis. Critical view of safety obtained, cystic duct and artery doubly clipped and divided. Specimens Gallbladder Anesthesia Type General Complications none Disposition Accompanied Patient To Recovery: No Disposition: Recovery Room Indications 78-year-old male with history of heart stent on Plavix admitted with cholecystitis. After holding his Plavix for 3 days, plan is for robotic cholecystectomy. The risks of the procedure were discussed, all questions were answered, and the patient agreed to proceed with surgery as planned. Description of Procedure The patient was properly identified, consented, and taken to the operating room where he was placed in the supine position. Indocyanine green was not administered due to history of anaphylaxis with iodinated contrast. General endotracheal anesthesia was induced. SCDs and a safety belt were placed. Preoperative antibiotics were administered. The patient's abdomen was prepped and draped in the standard sterile fashion. A surgical timeout was performed and all parties were in agreement that this was the correct patient and procedure to be performed and we continued as planned. An incision was made just above the umbilicus and to the right of midline. Veress needle was inserted and saline drop test confirmed entry to the abdomen. The abdomen was insufflated with carbon dioxide which the patient tolerated incident. Veress needle was removed and the abdomen is entered using the Optiview technique and a 5 mm camera. The introducer was removed and the abdomen inspected. No damage from initial trocar placement or Veress needle placement was identified. There were no significant abnormalities to the 4 quadrants of the abdomen. 8 mm robotic ports were then placed on the left and right. An additional 5 mm entry level administrative assistant port was placed in the lateral right subcostal position. The patient was placed in reverse Trendelenburg position and rotated towards the left. The robot was then docked and the camera and robotic instruments were inserted. The gallbladder was distended and acutely inflamed. The dome of the gallbladder was grasped by the entry level administrative assistant and retracted towards the left upper quadrant and the infundibulum was retracted toward the right lower quadrant revealing Calot's triangle. There was some spillage of bile due to a tear during retraction. Peritoneal attachments were taken down with electrocautery and blunt dissection. The cystic duct and artery were circumferentially dissected. A window of safety was obtained showing the cystic duct entering the gallbladder with no aberrant structures noted. The cystic duct and artery were doubly clipped and divided. The gallbladder was then lifted off the gallbladder fossa with electrocautery. The right upper quadrant was irrigated and hemostasis was found to be good. The gallbladder was placed in an Endo Catch bag and removed through the one of the port sites. The port site fascia was closed with an 0 Vicryl suture utilizing a Frankie-Nicolas device. The instruments were removed and the robot was undocked. The trochars were removed and the abdomen was allowed to collapse. The skin of all ports was closed with 4-0 Monocryl subcuticular sutures. Dermabond was placed over the wounds. The patient was extubated in the operating room and taken to the PACU where he recovered without apparent incident. All sponge, instrument and needle counts were correct at the conclusion of the procedure. The patient tolerated the procedure well. The physician's entry level administrative assistant was present and scrubbed for the entirety of the case and was essential in positioning the patient, prepping and draping, retraction and exposure, driving the laparoscope, exchange of the robotic instruments removal of the gallbladder, closure of the incisions, and placement of the dressings. I attest to the content of the Intraoperative Record and any orders documented therein. Any exceptions are noted below.
[2024-01-31] MEDS: BUPIVACAINE 0.5 % 5 MG/1 ML MPF 30ML VIAL ONE (12:05)
[2024-01-31] MEDS ORDERED: ALBUTEROL HFA 8 GM INHALER INH ONE (12:22)
--- NOTE | 2024-01-31 13:10 | Anesthesiology Progress Note ---
Date of Service January 31, 2024 Anesthesia Post Procedure Vital Signs Vital Signs: Temp Pulse Pulse Pulse Resp BP Pulse Ox 01/31/24 13:02 36.4 C L 79 18 159/73 H 01/31/24 12:45 36.3 C L 74 22 158/64 H 96 01/31/24 12:35 76 20 158/85 H 90 01/31/24 12:25 80 20 151/75 H 96 01/31/24 12:17 36.2 C L 86 26 H 168/76 H 98 01/31/24 09:14 36.9 C 56 L 20 161/72 H 96 01/31/24 07:12 36.5 C 47 L 14 163/79 H 97 01/31/24 06:57 47 L 01/31/24 03:16 36.7 C 55 L 18 125/64 92 01/30/24 23:04 57 L 01/30/24 22:17 36.7 C 55 L 18 138/68 90 01/30/24 19:20 36.7 C 57 L 18 150/86 H 97 01/30/24 15:06 64 01/30/24 14:53 36.6 C 52 L 15 145/76 H 92 O2 Del Method O2 Flow Rate 01/31/24 13:02 Nasal Cannula 2 01/31/24 12:45 Nasal Cannula 2 01/31/24 12:35 Room Air 01/31/24 12:25 Oxymask 3 01/31/24 12:17 Oxymask 6 01/31/24 09:14 Room Air 01/31/24 07:12 CPAP 2 01/31/24 06:57 01/31/24 03:16 Room Air 01/30/24 23:04 01/30/24 22:17 Room Air 01/30/24 19:20 Room Air 01/30/24 15:06 01/30/24 14:53 Room Air Pain Intensity Right Upper Abdomen: Pain Intensity: 4 Transfer of Care Handoff Completed per policy Notes Mental Status: alert / awake / arousable Patient Amnestic to Procedure: Yes Nausea / Vomiting: adequately controlled Pain: adequately controlled Airway Patency, RR, SpO2: stable & adequate BP & HR: stable & adequate Hydration State: stable & adequate Anesthetic Complications: no major complications apparent and Pt Satisfied with anesthetic care
--- NOTE | 2024-01-31 16:01 | Hospitalist Progress Note ---
Date of Service January 31, 2024 Assessment & Plan (1) Acute cholecystitis: Plan: - Acute onset of RUQ abdominal pain on 01/27. - No leukocytosis and afebrile on admission. - CT A/P showed cholelithiasis with questionable pericholecystic fat stranding. No dilation of common bile duct. - Gallbladder ultrasound showed gallstones with gallbladder wall thickness at the upper limits of normal. No pericholecystic fluid noted on ultrasound. - LFTs and lipase normal. - General surgery consulted -- Patient had robotic laparoscopic cholecystectomy with Dr. Vega on 01/23/2024. Per review of operative note, gallbladder was distended and acutely inflamed. No complications noted. - Postoperatively, patient well-tolerated clear liquid diet. Diet was advanced to low-fat low fiber. - Continue Zosyn 4.5 g IV q8h, last dose 02/07/24. - Zofran as needed for nausea vomiting - Pain control with acetaminophen; Dilaudid as needed for breakthrough pain - Hold Plavix, continue aspirin (2) Type 2 diabetes mellitus with diabetic neuropathy: Plan: - HgbA1c 6.6 on 01/29/2024 - Patient is normally on Toujeo 34u QAM and 26u QPM - Lantus 12 u BID while inpatient - SSI; with target BSG range 110-140mg/dL, CF 15, carb ratio 5 - T2DM diet - BSG ACHS - Adjust regimen as needed (3) Sleep apnea: Plan: CPAP HS + 2 L supp O2 Patient may use home CPAP if he brings it in (4) Hypertension: Plan: Continue amlodipine, atenolol Patient had not started on isosorbide mononitrate prior to coming to the hospital; hold for now (5) CAD, multiple vessel: Plan: Continue aspirin, hold Plavix (6) S/P coronary artery stent placement: Plan: Last stent placed 3 years ago (7) Renal artery stenosis: Plan Reviewed operative note. Advanced diet from clear liquids to low-fat low fiber. CODE STATUS: Full code DVT PPx: SCDs; continue ASA, hold plavix Admission and Anticipated Discharge Date Admission Date: January 28, 2024 Subjective Patient seen and evaluated at bedside postoperatively. He had robotic laparoscopic cholecystectomy with Dr. Vega today, 01/31/2024. Patient reports that he is sleepy, but denies any pain or concerns. Per review of operative note, no complications occurred during the surgery. Patient will tolerated his clear liquid diet postoperatively, and requested his diet to be advanced. Diet was advanced to low-fat low fiber. Physical Exam Physical Exam: General: No acute distress, nondiaphoretic, well-developed, well-nourished. Skin: The skin was without rashes, erythema, edema, or bruising. Cardiac: Regular rate and rhythm without murmurs gallops or rubs. Pulm: Clear to auscultation bilaterally without wheezes, rales or rhonchi. No retractions or accessory muscle use. 96% on 2 L via NC. Abdominal: Soft. BS present. Surgical sites covered with Dermabond. Neuro: A&O x3. No focal neurological deficits. Results & Data Results & Data Vital Signs (Past 12 Hours) Vital Signs Temp Pulse Pulse Pulse Resp BP Pulse Ox 01/31/24 15:34 79 01/31/24 15:30 36.6 C 81 15 152/75 H 96 01/31/24 14:27 36.7 C 83 16 152/83 H 94 01/31/24 14:10 88 01/31/24 14:00 36.3 C L 81 83 20 151/72 H 95 01/31/24 13:35 37.3 C 78 15 149/65 H 94 01/31/24 13:15 36.7 C 76 16 158/74 H 95 01/31/24 13:02 36.4 C L 79 18 159/73 H 01/31/24 12:45 36.3 C L 74 22 158/64 H 96 01/31/24 12:35 76 20 158/85 H 90 01/31/24 12:25 80 20 151/75 H 96 01/31/24 12:17 36.2 C L 86 26 H 168/76 H 98 01/31/24 09:14 36.9 C 56 L 20 161/72 H 96 01/31/24 07:12 36.5 C 47 L 14 163/79 H 97 01/31/24 06:57 47 L O2 Del Method O2 Flow Rate 01/31/24 15:34 01/31/24 15:30 Nasal Cannula 2 01/31/24 14:27 Room Air 01/31/24 14:10 01/31/24 14:00 Nasal Cannula 01/31/24 13:35 Nasal Cannula 2 01/31/24 13:15 Nasal Cannula 2 01/31/24 13:02 Nasal Cannula 2 01/31/24 12:45 Nasal Cannula 2 01/31/24 12:35 Room Air 01/31/24 12:25 Oxymask 3 01/31/24 12:17 Oxymask 6 01/31/24 09:14 Room Air 01/31/24 07:12 CPAP 2 01/31/24 06:57 Laboratory Results Reviewed CBC Reviewed CMP PG Care Time/CCT Total # of Minutes Spent Total Time Spent with Patient: Total time spent is greater than 50% in coordination of care (as documented) at patient's floor/unit and/or counseling patient: Coding Level of Care Code 95135 SUB INP/OBS CARE MIN Diagnoses Acute cholecystitis K81.0 Type 2 diabetes mellitus with diabetic neuropathy E11.40 Sleep apnea G47.30 Hypertension I10 CAD, multiple vessel I25.10 S/P coronary artery stent placement Z95.5 Renal artery stenosis I70.1
[2024-01-31] MEDS: oxyCODONE HCL IR 5 MG TAB (IMMEDIATE RELEASE) PO PRN (17:41)
[2024-01-31] MEDS ORDERED: HYDROmorphone INJ 0.5 MG/0.5 ML SYR IV PRN (18:10)
[2024-01-31] MEDS ORDERED: Nursing to Pharmacy Communication SCH (19:15)
[2024-02-01 07:38] LABS: Basophils # (auto) 0.02 K/uL (0.00-0.20); Basophils % (auto) 0.2 %; Eosinophils # (auto) 0.04 K/uL (0.00-0.50); Eosinophils % (auto) 0.3 %; Hematocrit (blood only) 38.1 % (42.0-52.0); Hemoglobin 12.1 g/dl (14.0-18.0); Immature Granulocytes # (auto) 0.05 K/uL (0.01-0.20); Immature Granulocytes % (auto) 0.4 %; Lymphocytes # (auto) 1.98 K/uL (1.20-3.40); Lymphocytes % (auto) 16.1 %; Mean Corpuscular Hemoglobin 26.2 pg (25.0-34.0); Mean Corpuscular Hgb Conc 31.8 g/dL (32.0-36.0); Mean Corpuscular Volume 82.5 fL (80.0-100.0); Mean Platelet Volume 11.8 fL (9.4-12.4); Monocytes # (auto) 1.09 K/uL (0.11-0.59); Monocytes % (auto) 8.8 %; Neutrophils # (auto) 9.14 K/uL (1.40-6.50); Neutrophils % (auto) 74.2 %; Platelet Count 206 K/uL (130-400); RDW Coefficient of Variation 15.5 % (11.5-14.5); RDW Standard Deviation 46.2 fL (36.4-46.3); Red Blood Count 4.62 M/uL (4.70-6.10); White Blood Count 12.32 K/ul (4.8-10.8)
[2024-02-01 07:49] LABS: Albumin Level 3.9 gm/dl (3.4-5.0); Bilirubin,Total 0.6 mg/dl (0.2-1.0); Calcium 8.6 mg/dl (8.6-10.3); Potassium 3.8 mmol/L (3.5-5.1)
[2024-02-01 07:55] LABS: Albumin Globulin Ratio 1.5 (0.9-2); BUN Creatinine Ratio 14.9 (10-20); Creatinine Clr Calc Pharmacy 54.4 ml/min; Est GFR (African American) 55.7 ml/min; Globulin 2.6 gm/dl (2.5-4.0); Total Protein 6.5 gm/dl (6.0-8.3)
[2024-02-01] MEDS: ACETAMINOPHEN 325 MG TAB PO PRN (09:22)
--- NOTE | 2024-02-01 09:58 | Surgery Progress Note ---
Date of Service February 01, 2024 Assessment & Plan (1) History of laparoscopic cholecystectomy: Plan: POD#1 robotic cholecystectomy okay to start plavix okay to d/c to home from surgery standpoint wound care instructions, activity restrictions, and return precautions given f/u in 2 weeks Admission and Anticipated Discharge Date Admission Date: January 28, 2024 Subjective POD#1 robotic cholecystectomy. Feeling better but sore. Tolerating diet. Feels better than on arrival. Physical Exam Constitutional: WD/WN, vitals as above + obese Gastrointestinal (Abdomen): Inspection/Auscultation: + abdominal wall ecchymosis (around incisions) Percussion/Palpation: + abdomen tender (appropriately), abdomen soft and + hernia (reducible umb hernia); no guarding and abdomen not rigid Results & Data Vital Signs (Past 12 Hours) Vital Signs Temp Pulse Pulse Resp BP Pulse Ox O2 Del Method 02/01/24 07:27 46 L 02/01/24 07:09 36.4 C L 55 L 15 154/78 H 95 Room Air 02/01/24 03:56 36.7 C 53 L 20 132/63 95 Room Air 01/31/24 23:16 36.8 C 76 20 148/67 H 93 Room Air 01/31/24 22:42 68 Laboratory Results Laboratory Results - last 24 hr 01/31/24 01/31/24 01/31/24 12:25 17:05 20:06 WBC RBC Hgb Hct MCV MCH MCHC RDW Std Deviation RDW Coeff of Annie Plt Count MPV Immature Gran % (Auto) Neut % (Auto) Lymph % (Auto) Cotton % (Auto) Eos % (Auto) Baso % (Auto) Neut # (Auto) Lymph # (Auto) Cotton # (Auto) Eos # (Auto) Baso # (Auto) Immature Gran # (Auto) Sodium Potassium Chloride Carbon Dioxide Anion Gap BUN Creatinine Est Cr Clr Drug Dosing Est GFR ( Amer) Est GFR (Non-Af Amer) BUN/Creatinine Ratio Glucose POC Glucose 128 H 218 H 227 H Calcium Total Bilirubin AST ALT Alkaline Phosphatase Total Protein Albumin Globulin Albumin/Globulin Ratio 02/01/24 02/01/24 06:47 07:51 WBC 12.32 H RBC 4.62 L Hgb 12.1 L Hct 38.1 L MCV 82.5 MCH 26.2 MCHC 31.8 L RDW Std Deviation 46.2 RDW Coeff of Annie 15.5 H Plt Count 206 MPV 11.8 Immature Gran % (Auto) 0.4 Neut % (Auto) 74.2 Lymph % (Auto) 16.1 Cotton % (Auto) 8.8 Eos % (Auto) 0.3 Baso % (Auto) 0.2 Neut # (Auto) 9.14 H Lymph # (Auto) 1.98 Cotton # (Auto) 1.09 H Eos # (Auto) 0.04 Baso # (Auto) 0.02 Immature Gran # (Auto) 0.05 Sodium 140 Potassium 3.8 Chloride 107 Carbon Dioxide 26 Anion Gap 7 BUN 21 Creatinine 1.41 H Est Cr Clr Drug Dosing 54.4 Est GFR ( Amer) 55.7 Est GFR (Non-Af Amer) 48.0 BUN/Creatinine Ratio 14.9 Glucose 153 H POC Glucose 140 H Calcium 8.6 Total Bilirubin 0.6 AST 27 ALT 24 Alkaline Phosphatase 43 Total Protein 6.5 Albumin 3.9 Globulin 2.6 Albumin/Globulin Ratio 1.5 PG Care Time/CCT Total # of Minutes Spent Total Time Spent with Patient: Total time spent is greater than 50% in coordination of care (as documented) at patient's floor/unit and/or counseling patient: Coding Level of Care Code None Diagnoses History of laparoscopic cholecystectomy Z90.49
[2024-02-01] MEDS: oxyCODONE HCL IR 5 MG TAB (IMMEDIATE RELEASE) PO PRN (13:22)
--- NOTE | 2024-02-01 14:42 | Discharge Summary ---
Discharge Summary Date of Service February 01, 2024 Principal Dx & Hospital Course #1 = Principal Diagnosis (1) Acute cholecystitis: - Acute onset of RUQ abdominal pain on 01/27. - No leukocytosis and afebrile on admission. - CT A/P showed cholelithiasis with questionable pericholecystic fat stranding. No dilation of common bile duct. - Gallbladder ultrasound showed gallstones with gallbladder wall thickness at the upper limits of normal. No pericholecystic fluid noted on ultrasound. - LFTs and lipase normal. - General surgery consulted -- Patient had robotic laparoscopic cholecystectomy with Dr. Vega on 01/23/2024. Per review of operative note, gallbladder was distended and acutely inflamed. No complications noted. - Postoperatively, patient well-tolerated clear liquid diet. Diet was advanced to low-fat low fiber. - Treated with Zosyn while hospitalized. No oral antibiotics required on discharge. - Plavix resumed 02/01/24. (2) Type 2 diabetes mellitus with diabetic neuropathy: - HgbA1c 6.6 on 01/29/2024 - Patient is normally on Toujeo 34u QAM and 26u QPM - Lantus 12 u BID while inpatient - SSI; with target BSG range 110-140mg/dL, CF 15, carb ratio 5 - T2DM diet - Adjust regimen as needed while hospitalized. - Resume home regimen upon discharge. (3) Sleep apnea: CPAP HS + 2 L supp O2 (4) Hypertension: Continue amlodipine, atenolol Patient had not started on isosorbide mononitrate prior to coming to the hospital; hold for now (5) CAD, multiple vessel: Continue aspirin Plavix resumed 02/01/2024 (6) S/P coronary artery stent placement: Last stent placed 3 years ago (7) Renal artery stenosis: Plan CODE STATUS: Full code Notes For Next Care Provider Patient presented with acute cholecystitis and had laparoscopic cholecystectomy on 01/31/[address] Vega. No operative complications noted. Resumed Plavix 02/01/2024. Patient has to follow-up with general surgery in 2 weeks from discharge. 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 He presented for acute onset of right upper quadrant abdominal pain on 01/27. Patient reports that the problem started 1 month ago, and that he has been having intermittent right upper quadrant pain. Initially he thought it was secondary to his heart (extensive cardiac history), but then he had an ultrasound done at the NH and found "sludge" from his gallbladder. He was originally scheduled for a HIDA scan on February 05. However, this morning around 9:30 AM, he developed significant sharp, stabbing pain in his RUQ lasting greater than 2 hours. Radiation to the right flank, and right lower back. It came on abruptly after he ate a banana this morning. He rated the pain 8/10 at its worst; 0 out of 10 now after receiving pain medication in the ED. He was not doing anything active that time, was just sitting with his . Patient did not take any of his regular morning medications today; did not take aspirin or Plavix. Patient does have a history of heart stents; last stent was placed 3 years ago. Patient is on Plavix for history of a stroke. However, he does not has been taking all of it in the past for a week at a time without difficulty. Patient follows with Dr. Aleman for cardiology. History of kidney stones. No recent change in diet. No prior issues with his gallbladder. Patient had a normal BM this morning, but then developed diarrhea shortly after his RUQ pain developed. Patient has been taking Tylenol for the pain over the past month. Patient is hypertensive 170/76, as well as bradycardic at 51 bpm at time of admission. ED course: Zosyn 4.5 g IV Morphine 2 mg IV Toradol 10 mg IV Zofran 4 mg IV NSS 500 mL IV ROS: Patient endorses RUQ pain, nausea, dry heaves, bloating, diarrhea, lightheadedness, RODRIGUEZ, and dry cough (chronic). Patient denies fever, chills, night-sweats, dizziness, chest pain, chest palpitations, SOB, pleuritic CP or vomiting. Admission Exam Per Admitting Provider General: no acute distress; pleasant affect; non-toxic appearing; well- nourished; cooperative; 98% SpO2 on RA HEENT: normocephalic, atraumatic; no scleral icterus; PERRLA w/ EOMs intact; moist mucus membrane; vision and hearing grossly intact Neck: supple; no lymphadenopathy; trachea midline Skin: warm, dry without signs of tenting; no cyanosis; no rashes, bruising, lesions, or erythema noted CV: chest wall NTP; RRR; S1/S2 normal; no murmurs/rubs/gallops; pulses intact and symmetric at radial, DP, and PT Lungs: no acute respiratory distress; symmetrical chest wall expansion; clear breath sounds across all lung polanco w/o adventitious sounds; no wheezing ABD: Soft; RUQ is TTP; BS present; no rebound/guarding; bloating; distention secondary to patient's body habitus; positive Selby sign; negative McBurney's point tenderness MSK: no tics or fasciculations; no edema noted in the LEs b/l, nonerythematous Neuro: A&Ox3; normal mood and affect; fluent speech; no focal deficits; sensation grossly intact in the LEs b/l Discharge Exam General: No acute distress, nondiaphoretic, well-developed, well-nourished. Skin: The skin was without rashes, erythema, edema, or bruising. Cardiac: Regular rate and rhythm without murmurs gallops or rubs. Pulm: Clear to auscultation bilaterally without wheezes, rales or rhonchi. No retractions or accessory muscle use. 96% on 2 L via NC. Abdominal: Soft. BS present. Surgical sites covered with Dermabond. Neuro: A&O x3. No focal neurological deficits. Updated Medication List Medication Instructions Recorded Confirmed Type metformin 500 mg tablet 500 mg PO BID #180 tabs 07/09/19 01/28/24 Rx colchicine 0.6 mg tablet 0.6 mg PO BID PRN gout 08/14/19 01/28/24 History aspirin 81 mg tablet,delayed 81 mg PO QDL 09/07/19 01/28/24 History release (Iggy Low Dose Aspirin) atorvastatin 40 mg tablet 40 mg PO HS #90 tabs 09/07/19 01/28/24 Rx clopidogrel 75 mg tablet 75 mg PO QAM 09/07/19 01/28/24 History menthol 4 % topical gel (Biofreeze 1 appln topical QID PRN pain #89 mL 09/07/19 01/28/24 Rx (menthol)) nitroglycerin 0.4 mg sublingual 0.4 mg sublingual UD PRN Chest Pain 09/07/19 01/28/24 History tablet (Nitrostat) ondansetron 4 mg disintegrating 4 mg PO Q6H PRN nausea and 10/22/19 01/28/24 Rx tablet vomiting #30 tabs blood sugar diagnostic (FreeStyle #100 ea 04/15/20 01/18/24 Rx Lite Strips) docusate sodium 100 mg capsule 100 mg PO BID PRN Constipation 04/15/20 01/28/24 History folic acid 1 mg tablet 1 mg PO QDL 04/15/20 01/28/24 History insulin glargine U-300 conc 300 See Rx Instructions subcut 04/15/20 01/28/24 Rx unit/mL (1.5 mL) subcutaneous pen .COMPLEX 90 days #16.5 mL (Toujeo SoloStar U-300 Insulin) amlodipine 5 mg tablet 5 mg PO BID #180 tabs 04/17/20 01/28/24 Rx spironolactone 25 mg tablet 25 mg PO QAM 12/09/20 01/28/24 History atenolol 25 mg tablet 12.5 mg (1/2 x 25 mg) PO HS #45 12/10/20 01/28/24 Rx tabs acetaminophen 325 mg tablet 325 mg PO QID PRN Pain 04/08/22 01/28/24 History blood-glucose meter,continuous #1 ea 05/04/23 01/18/24 Rx (Dexcom G6 Buttonhole Marker) blood-glucose meter,continuous #1 ea 05/04/23 01/18/24 Rx (Dexcom G7 Buttonhole Marker) arginine (L-arginine) 500 mg 500 mg PO DAILY #360 caps 11/02/23 01/28/24 Rx capsule blood-glucose sensor (Dexcom G7 #9 ea 11/22/23 01/18/24 Rx Sensor device) ezetimibe 10 mg tablet (Zetia) 10 mg PO DAILY #90 tabs 01/27/24 01/28/24 Rx isosorbide mononitrate 30 mg 30 mg PO DAILY #30 tabs 01/27/24 01/28/24 Rx tablet,extended release 24 hr B-complex with vitamin C 1 tab PO DAILY 01/28/24 01/28/24 History cephalexin 500 mg capsule 500 mg PO QID 01/28/24 01/28/24 History ergocalciferol (vitamin D2) 1,250 1,250 mcg PO WK 01/28/24 01/28/24 History mcg (50,000 unit) capsule (Vitamin D2) oxycodone 5 mg tablet 5 mg PO Q4H PRN pain #10 tabs 02/01/24 Rx Hospital Stay Data Consultations 01/28/24 16:01 Consult General Surgery Stat 01/28/24 16:05 ED Decision to Admit Stat Procedures Performed Operation Date: 01/31/24 08:15 Actual Procedures p Robotic Laparoscopic Cholecystectomy(Not Applicable) - [place] Vega, DO, FACS Diagnostic Imagining Performed 01/28/24 12:23 CT abd pelvis wo con Stat 01/28/24 14:33 US gallbladder Stat Pending Results Patient Have Any Pending Studies at Discharge: Yes Discharge Instructions Given to Patient (Per Discharging Provider) Mr. Ching, You were admitted to the hospital due to cholecystitis (inflammation of your gallbladder). This is the cause of your right upper quadrant abdominal pain. You had a cholecystectomy (surgery to remove your gallbladder) with Dr. Vega on 01/31/2024. There were no complications from the surgery. After a cholecystectomy, most patients have some abdominal pain that resolves within 2 to 3 days after surgery. Some people get loose stools after surgery. In most cases, the diarrhea last no more than a few weeks to a few months. There is no specific gallbladder removal diet that you should follow if you have this problem. However, there are a few diet recommendations that you can consider as noted below. Upon discharge from the hospital: * You can resume your Plavix (blood thinner) on discharge. * Please take Tylenol (acetaminophen) 650 mg every 4 hours as needed for pain. Use this as your first-line pain medication. * Take oxycodone 5 mg every 4 hours as needed for breakthrough pain. * The following diet recommendations may help reduce problems with diarrhea: Avoid high-fat foods for at least 1 week, choose fat-free or low-fat foods (less than 3 g of fat per serving), increase the fiber in your diet, eat smaller, more frequent meals. * Follow-up with general surgery in 2 weeks. Please call their clinic to schedule your follow-up appointment. Please return to the hospital if you experience any of the following: Fever of 100 point F or higher, redness/pain/fluid leaking at the incision sites, yellow color to your skin or eyes, severe pain or cramping in your belly, vomiting that continues and unable to keep down fluids, unable to have a bowel movement within 3 days, trouble peeing, rectal bleeding, leg swelling, shortness of breath, chest pain, lightheadedness, dizziness, or passing out. It was a pleasure taking care of you while you were in the hospital, Sil Dean PA-C Total Time Total Time Spent Total Time Spent (In Minutes): Greater than 30 minutes spent completing this discharge process including direct patient care, medication reconciliation, documentation, review of labs and images, and coordination of care. Coding Level of Care Code 73418 INP/OBS DISCH >30 MIN Diagnoses Acute cholecystitis K81.0 Type 2 diabetes mellitus with diabetic neuropathy E11.40 Sleep apnea G47.30 Hypertension I10 CAD, multiple vessel I25.10 S/P coronary artery stent placement Z95.5 Renal artery stenosis I70.1
== END 2024-02-01 13:55 | disposition home or self-care (01) | DRG 419 ==
LOC: ED 12:04 → 2N 17:09 → SUATTDRO 17:09 → 2N 18:02

== ENCOUNTER 2025-03-31 11:48 | Inpatient (IN) ==
[2025-03-31 12:54] LABS: Hematocrit (blood only) 45.8 % (42.0-52.0); Hemoglobin 14.8 g/dl (14.0-18.0); Immature Granulocytes # (auto) 0.04 K/uL (0.01-0.20); Immature Granulocytes % (auto) 0.3 %; Mean Corpuscular Hemoglobin 26.1 pg (25.0-34.0); Mean Corpuscular Volume 80.9 fL (80.0-100.0); Platelet Count 230 K/uL (130-400); RDW Standard Deviation 47.9 fL (36.4-46.3); Red Blood Count 5.66 M/uL (4.70-6.10); White Blood Count 12.21 K/ul (4.8-10.8)
[2025-03-31] MEDS: HYDROmorphone INJ 0.5 MG/0.5 ML SYR IV PRN ×2 (13:01→20:03)
[2025-03-31] MEDS: ONDANSETRON INJ 2 MG/ML 2 ML VIAL IV STA (13:01)
[2025-03-31 13:03] LABS: Appearance Urine Clear (Clear); Bacteria Urine Automated None Seen (None Seen); Cast Urine Automated 0-2 /lpf (0-2); Epithelial Cell Urine Auto 0-2 /hpf (0-2); Glucose Urine UA 3+ (Negative); RBC Urine Automated 0-2 /hpf (0-2); WBC Urine Automated 0-5 /hpf (0-5)
[2025-03-31 13:11] LABS: Alanine Aminotransferase 21 U/L (7-52); Albumin Globulin Ratio 1.6 (0.9-2); Alkaline Phosphatase 53 U/L (34-104); Anion Gap 7 (3-11); Bilirubin,Total 0.8 mg/dl (0.2-1.0); Blood Urea Nitrogen 18 mg/dl (6-23); Calcium 9.5 mg/dl (8.6-10.3); Carbon Dioxide 26 mmol/L (21-32); Chloride 109 mmol/L (98-107); Globulin 2.8 gm/dl (2.5-4.0); Glucose 72 mg/dl (70-99(Fasting)); Lipase 28 U/L (11-82); Potassium 4.2 mmol/L (3.5-5.1); Sodium 142 mmol/L (136-145); Total Protein 7.4 gm/dl (6.0-8.3)
--- NOTE | 2025-03-31 15:12 | Emergency Department Note ---
Impression & Plan Ureterolithiasis, Acute left flank pain ED Provider Note NAME: BÁRBARA BRITT AGE: 80 SEX: Male INFORMANT: Patient ED PROVIDER(S): David Stevenson MD CHIEF COMPLAINT: Left flank pain PLAN: Disposition: Admitted Outpatient prescription management: none Referral: None MEDICAL DECISION MAKING: Patient presented because of flank pain. Workup initiated. Patient has slight leukocytosis. Chemistry panel unremarkable. Urinalysis did not reveal signs of infection. Patient was treated with multiple doses of IV Dilaudid. Unfortunately he still continued pain. Patient underwent CT imaging was found to have an obstructing 6 mm kidney stone. Given the intractable pain from this kidney stone I discussed further evaluation and management in the hospital. Patient was in agreement. Consultation was made with urology, Dr. Harden. Case discussed. He recommended hospitalist admission and will follow along. Consultation was made to the [facility] hospitalist service. Patient was evaluated in the ER and admitted for further management. Care/management discussed with: none Level of care consideration(s): After review of the information above and other included data, I feel the patient requires escalation of care to admission. Triage Nursing notes: reviewed and agree them. Vital Signs: reviewed and remarkable for hypertension Additional History obtained from: none Chronic Medical/Social Conditions affecting care: Diabetes Prior/ Outside/ External records reviewed: none Differential Diagnosis: Renal colic, UTI, appendicitis, diverticulitis, mesenteric ischemia, aortic pathology, infections, inflammatory bowel disease, PUD, biliary pathology, as well as other pathologies. Diagnostics, independently interpreted by me: ECG: none Cardiac Monitoring: Cardiac monitoring ordered by me: The patient was placed on continuous cardiac monitoring and observed. It revealed a normal sinus rhythm at 66 beats per minute without ectopy or evidence of dysrhythmia. Medical decision rules: none Imaging studies: CT imaging of the abdomen pelvis reveals left-sided ureterolithiasis with hydronephrosis. I refer you to the EMR for further details. HPI: 80 year old Male arrives for evaluation of left flank pain. This started yesterday and is worsening today. Patient notes it is colicky in nature. Radiates from the left flank anteriorly. The patient also notes the following associated symptoms, nausea feeling lightheaded. The patient has found no relieving factors. Current pain is rated as 10/10. Pt denies LOC, headache, fevers, chills, diaphoresis, visual changes, neck pain, chest pain, breathing difficulties, right back pain, melena, hematochezia, urinary symptoms, numbness, weakness, lymphadenopathy, rash, or other complaints. PAST MEDICAL HISTORY: See Below, kidney stones, diabetes PAST SURGICAL HISTORY: See Below, SOCIAL HISTORY: See Below, retired HOME MEDICATIONS: See Below ALLERGIES: See Below VITALS: See Below PHYSICAL EXAMINATION: GENERAL: Awake, alert, uncomfortable-appearing, in no distress HENT: Normocephalic, atraumatic. Oropharynx unremarkable. EYES: Normal conjunctiva. Sclera non-icteric. NECK: Inspection normal. Non-tender. Supple. No nuchal rigidity. FROM. No masses. RESPIRATORY: Clear to auscultation. No wheezes. No rales. Normal respiratory effort. CARDIAC: Borderline bradycardic rate. Normal rhythm. No murmurs. No rubs. Extremities warm and well perfused. Pulses equal. No JVD. GI: Soft, non-distended. Left flank tenderness to palpation. No rebound or guarding. No masses. RECTAL: Deferred. MUSCULOSKELETAL: Atraumatic. Chest examination reveals no tenderness. The back is symmetrical on inspection without obvious abnormality. There is left CVA tenderness to palpation. No joint edema. LOWER EXTREMITIES: Calves are equal size bilaterally and non-tender. No edema. No discoloration. NEURO: Normal sensorium. No sensory or motor deficits noted. SKIN: No rash or jaundice noted. PROCEDURES: none CRITICAL CARE: none OBSERVATION NOTE: none Past Med/Surg History Problem List Acute left flank pain (Acute) Ureterolithiasis (Acute) Carpal tunnel syndrome, right Cervical radiculopathy Obesity Allergic rhinitis (Chronic) Asthma (Chronic) Facet syndrome, lumbar (Chronic) Hypercholesterolemia (Chronic) Impotence, organic (Chronic) Vitamin D deficiency (Chronic) BRITTANY (generalized anxiety disorder) (Chronic) CAD, multiple vessel Nocturnal hypoxemia due to asthma Bradycardia H/O vascular surgery Type 2 diabetes mellitus with diabetic neuropathy (Chronic) IDDM Degeneration of cervical intervertebral disc (Chronic) Recurrent nephrolithiasis (Chronic) Solitary thyroid nodule (Chronic) Sleep apnea (Chronic) CPAP + O2 @ 2 LPM qHS Lumbar canal stenosis (Chronic) Disc degeneration, lumbar (Chronic) Benign prostatic hyperplasia with urinary obstruction (Chronic) Hypertension (Chronic) Kidney disease (Chronic) Medical History Renal artery stenosis 50% Proximal right renal artery stenosis, no significant disease of the left renal artery 11/06/20 arteriogram COVID-19 Multiple sclerosis History of exposure to asbestos On continuous oral anticoagulation Acute cholecystitis Temporal headache temporal bx 04/2022 neg per pt. planning for lumbar puncture at [facility] 08/04/22. Stenosis of right subclavian artery Approx 60% per 02/2022 vascular records- recommend BP be taken in left arm for accuracy purposes Dysphagia Has had ongoing for 30+ yrs, no issues with at present Carotid artery stenosis Per 01/2022 Carotid Doppler= <50% stenosis in the bilateral ICAs; >50% arterial occlusive disease in right subclavian History of stroke 5+ years ago, no residual effects > Plavix CAD (coronary artery disease) JAQUI x2 to prox and mid LAD (11/06/20), BMS x 1 to LCx (2009) Gout HLD (hyperlipidemia) Hearing deficit B/L RODRIGUEZ Pulmonary nodule Chronic cough MVP (mitral valve prolapse) MV anatomy "normal" per 10/26/20 echo ENZO (acute kidney injury) History of tinnitus Poor circulation Homocystinemia Surgical History History of laparoscopic cholecystectomy S/P coronary artery stent placement Hx laparoscopic cholecystectomy (01/31/24) Robotic Laparoscopic Cholecystectomy(Not Applicable) - [place] Vega, DO, FACS History of temporal artery biopsy History of lithotripsy (12/16/20) left laser lithotripsy ([facility]) History of anesthesia reaction hx post op ileus History of esophagogastroduodenoscopy (EGD) History of colonoscopy History of cardiac catheterization JAQUI x2 to LAD (11/06/20), stent x1 (2009) Status post laser lithotripsy of ureteral calculus S/P cystoscopy with ureteral stent placement cystoscopy, left ureteroscopy, laser lithotripsy, left ureteral stent (10/22/2020): Grade view 1, Tong #2, ET tube #8 at [facility] Status post blepharoplasty of both eyes and brow lift- [facility] [place] 05/[place] S/P hernia repair H/O sinus surgery Previous back surgery lumbar Family History Sister Ovarian cancer Congestive heart disease Heart disease Cancer Myocardial infarction Brother Heart disease Unknown Ovarian cancer Other No family history of adverse response to anesthesia No family history of bleeding disorder Denies family history of Prostate cancer Breast cancer Colorectal cancer Social History Smoking Status: Never smoker Second Hand Exposure: No; Do You Dip or Chew Tobacco: No; Hx Alcohol Use: No Hx Substance Use: No Preferred Language: Ethiopian Communication Ability: Effective Visual Impairment: Limited Hearing Ability: Use of Hearing Aid Hydrotel Operator Required: No Beliefs That Will Affect Care: None marital status: Current Living Situation: Spouse Current Living Situation Comment: Home current occupational status: retired How many Children do You have: 3 Feels Safe at Home: Yes Childhood Exposure to Second-Hand Smoke: Yes Diet: regular caffeine: Yes during the past year weight has: remained stable Dental Care, Regularly: Yes Physical Activity Frequency: 1-2 Times per Week Seatbelt Use: always Sunscreen Use: No Assistive Devices: Glasses Allergies Allergies Allergy/AdvReac Type Severity Reaction Status Date / Time Iodinated Contrast Media Allergy Severe Anaphylaxis Verified 03/31/25 16:56 walnut Allergy Severe Tongue Verified 03/31/25 16:56 swelling, dyspnea simvastatin AdvReac Mild GI symptoms Verified 03/31/25 16:56 Home Meds Home Medications Medication Instructions Recorded Confirmed aspirin 81 mg tablet,delayed 81 mg PO QDL 09/07/19 03/31/25 release (Iggy Low Dose Aspirin) clopidogrel 75 mg tablet 75 mg PO QAM 09/07/19 03/31/25 nitroglycerin 0.4 mg sublingual 0.4 mg sublingual UD PRN Chest Pain 09/07/19 03/31/25 tablet (Nitrostat) docusate sodium 100 mg capsule 100 mg PO BID PRN Constipation 04/15/20 03/31/25 folic acid 1 mg tablet 1 mg PO DAILY 04/15/20 03/31/25 spironolactone 25 mg tablet 25 mg PO QAM 12/09/20 03/31/25 acetaminophen 325 mg tablet 650 mg PO DAILY PRN 04/08/22 03/31/25 Pain/Fever/Headache B-complex with vitamin C 1 tab PO DAILY 01/28/24 03/31/25 ergocalciferol (vitamin D2) 1,250 1,250 mcg PO WK 01/28/24 03/31/25 mcg (50,000 unit) capsule (Vitamin D2) atenolol 25 mg tablet 25 mg PO HS 03/31/25 03/31/25 atorvastatin 80 mg tablet 40 mg PO DAILY 03/31/25 03/31/25 carboxymethylcellulose sodium 0.5 1 drp ophthalmic (eye) TID 03/31/25 03/31/25 % eye drops cyanocobalamin (vitamin B-12) 1,000 mcg PO DAILY 03/31/25 03/31/25 1,000 mcg tablet (Vitamin B-12) cyclosporine 0.05 % eye drops 1 drp ophthalmic (eye) BID 03/31/25 03/31/25 lanolin alcohols-mineral 1 applic topical DAILY PRN Dry 03/31/25 03/31/25 oil-w.petrolatum-ceresin topical skin/Callusing/Fissuring on feet cream (Eucerin topical cream) lidocaine 5 % topical patch 1 patch topical DAILY 03/31/25 03/31/25 urea 20 % topical cream 1 applic topical DAILY PRN Dry 03/31/25 03/31/25 skin/Callusing/Fissuring on feet Previous Rx's Medication Instructions Recorded menthol 4 % topical gel (Biofreeze 1 appln topical QID PRN pain #89 mL 09/07/19 (menthol)) blood sugar diagnostic (FreeStyle #100 ea 04/15/20 Lite Strips) amlodipine 5 mg tablet 5 mg PO BID #180 tabs 04/17/20 blood-glucose,quilting supervisor,cont #1 ea 05/04/23 (Dexcom G6 Diesel Service Technician) blood-glucose,quilting supervisor,cont #1 ea 05/04/23 (Dexcom G7 Diesel Service Technician) arginine (L-arginine) 500 mg 500 mg PO DAILY #360 caps 11/02/23 capsule ezetimibe 10 mg tablet (Zetia) 10 mg PO DAILY #90 tabs 01/27/24 Auto Titrating CPAP #1 ea 09/20/24 CPAP Supplies #1 ea 09/20/24 empagliflozin 25 mg tablet 12.5 mg (1/2 x 25 mg) PO DAILY 90 11/05/24 (Jardiance) days #45 tabs insulin glargine U-300 conc 300 See Rx Instructions subcut 11/05/24 unit/mL (1.5 mL) subcutaneous pen .COMPLEX 90 days #16.5 mL (Toujeo SoloStar U-300 Insulin) blood-glucose sensor (Dexcom G7 #9 ea 03/12/25 Sensor device) Results & Data (ED) Vital Signs Vital Signs - 24 hr 03/31/25 11:50 03/31/25 12:08 03/31/25 12:12 Temperature 36.1 C L Temperature Source Temporal Artery Scan Pulse Rate 65 58 L Pulse Rate [Apical] 57 L Pulse Rate from SpO2 Sensor Pulse Rhythm [Apical] Regular Respiratory Rate 24 19 Respiratory Effort / Characteristics Non-Labored Spontaneous Non-Labored Spontaneous Respiratory Depth Normal Normal Respiratory Pattern Regular Regular Blood Pressure 167/81 H Blood Pressure [Left Arm] Blood Pressure Mean 109 Blood Pressure Mean [Left Arm] Pulse Oximetry 93 95 Oxygen Delivery Method Room Air Room Air Sepsis Recent Fever Within 48 Hours No Sepsis New/Unexplained Change in Mental Status No Sepsis Action Taken by Nursing No Action Required 03/31/25 12:51 03/31/25 13:00 03/31/25 13:03 Temperature Temperature Source Pulse Rate 56 L 55 L Pulse Rate [Apical] Pulse Rate from SpO2 Sensor 59 L 55 L Pulse Rhythm [Apical] Respiratory Rate 12 23 Respiratory Effort / Characteristics Respiratory Depth Respiratory Pattern Blood Pressure 161/89 H Blood Pressure [Left Arm] Blood Pressure Mean 114 Blood Pressure Mean [Left Arm] Pulse Oximetry 95 97 Oxygen Delivery Method Sepsis Recent Fever Within 48 Hours Sepsis New/Unexplained Change in Mental Status Sepsis Action Taken by Nursing 03/31/25 14:53 Temperature Temperature Source Pulse Rate Pulse Rate [Apical] 53 L Pulse Rate from SpO2 Sensor Pulse Rhythm [Apical] Respiratory Rate 20 Respiratory Effort / Characteristics Respiratory Depth Respiratory Pattern Blood Pressure Blood Pressure [Left Arm] 131/63 Blood Pressure Mean Blood Pressure Mean [Left Arm] 85 Pulse Oximetry 94 Oxygen Delivery Method Sepsis Recent Fever Within 48 Hours Sepsis New/Unexplained Change in Mental Status Sepsis Action Taken by Nursing Laboratory Data 03/31/25 12:07 03/31/25 12:07 Lab Results 03/31/25 03/31/25 03/31/25 Range/Units 12:03 12:07 15:30 WBC 12.21 H (4.8-10.8) K/ul RBC 5.66 (4.70-6.10) M/uL Hgb 14.8 (14.0-18.0) g/dl Hct 45.8 (42.0-52.0) % MCV 80.9 (80.0-100.0) fL MCH 26.1 (25.0-34.0) pg MCHC 32.3 (32.0-36.0) g/dL RDW Std Deviation 47.9 H (36.4-46.3) fL RDW Coeff of Annie 16.9 H (11.5-14.5) % Plt Count 230 (130-400) K/uL MPV 11.7 (9.4-12.4) fL Immature Gran % (Auto) 0.3 % Neut % (Auto) 55.2 % Lymph % (Auto) 32.4 % Curry % (Auto) 10.4 % Eos % (Auto) 1.4 % Baso % (Auto) 0.3 % Neut # (Auto) 6.73 H (1.40-6.50) K/uL Lymph # (Auto) 3.96 H (1.20-3.40) K/uL Curry # (Auto) 1.27 H (0.11-0.59) K/uL Eos # (Auto) 0.17 (0.00-0.50) K/uL Baso # (Auto) 0.04 (0.00-0.20) K/uL Immature Gran # (Auto) 0.04 (0.01-0.20) K/uL Sodium 142 (136-145) mmol/L Potassium 4.2 (3.5-5.1) mmol/L Chloride 109 H (98-107) mmol/L Carbon Dioxide 26 (21-32) mmol/L Anion Gap 7 (3-11) BUN 18 (6-23) mg/dl Creatinine 1.29 (0.6-1.4) mg/dl Est Cr Clr Drug Dosing Not Reportable eGFR 56.75 BUN/Creatinine Ratio 14.0 (10-20) Glucose 72 (70-99(Fasting)) mg/dl POC Glucose 72 (70-99) mg/dl Calcium 9.5 (8.6-10.3) mg/dl Total Bilirubin 0.8 (0.2-1.0) mg/dl AST 27 (13-39) U/L ALT 21 (7-52) U/L Alkaline Phosphatase 53 (34-104) U/L Total Protein 7.4 (6.0-8.3) gm/dl Albumin 4.6 (3.4-5.0) gm/dl Globulin 2.8 (2.5-4.0) gm/dl Albumin/Globulin Ratio 1.6 (0.9-2) Lipase 28 (11-82) U/L Urine Color Yellow Urine Appearance Clear (Clear) Urine pH 5.0 (4.5-7.5) Ur Specific Embudo 1.026 (1.000-1.030) Urine Protein Negative (Negative) Urine Glucose (UA) 3+ H (Negative) Urine Ketones Negative (Negative) Urine Blood 2+ H (Negative) Urine Nitrite Negative (Negative) Urine Bilirubin Negative (Negative) Urine Urobilinogen Negative (Negative) Ur Leukocyte Esterase Negative (Negative) Urine WBC (Auto) 0-5 (0-5) /hpf Urine RBC (Auto) 0-2 (0-2) /hpf U Hyaline Cast (Auto) 0-2 (0-2) /lpf U Epithel Cells (Auto) 0-2 (0-2) /hpf Urine Bacteria (Auto) None Seen (None Seen) Urine Comment Administered Medications Hydromorphone HCl (Hydromorphone Inj 0.5 Mg/0.5 Ml Syr) 0.25 mg IV Q15M PRN PRN Reason: Pain Stop: 04/14/25 12:46 Last Admin: 03/31/25 17:05 Dose: 0.25 mg Documented By: Admin: 03/31/25 15:27 Dose: 0.25 mg Documented By: Admin: 03/31/25 13:58 Dose: 0.25 mg Documented By: Admin: 03/31/25 13:01 Dose: 0.25 mg Documented By: BALDOMERO Sodium Chloride (Nss) 1,000 mls @ 80 mls/hr IV .[id number] REAGAN Stop: 04/03/25 17:54 Last Admin: 03/31/25 18:27 Dose: 80 mls/hr Documented By: KS Discontinued Medications Ondansetron HCl (Ondansetron Inj 2 Mg/Ml 2 Ml Vial) 4 mg IV NOW STA Stop: 03/31/25 12:48 Last Admin: 03/31/25 13:01 Dose: 4 mg Documented By: BALDOMERO Imaging Data Radiologist's Impression: Abdomen/Pelvis CT 03/31/25 12:47 EXAMINATION: CT of the abdomen and pelvis performed without contrast TECHNIQUE: Helical CT images from the lung bases through the symphysis pubis were obtained without contrast. Coronal and sagittal reformatted images were generated at a workstation for further assessment. Dose reduction techniques were achieved by using automatic exposure control and/or adjustment of mA and/or kV according to patient size and/or use of iterative reconstruction technique. COMPARISON: 01/28/2024 HISTORY: Abdominal pain FINDINGS: Lower chest: No consolidation. No pleural effusion or pneumothorax. Liver: No suspicious liver lesions. Gallbladder: Cholecystectomy changes. Spleen: Normal size. Pancreas: No suspicious pancreatic lesions. The pancreatic duct is not dilated. Adrenal glands: No adrenal nodules. Kidneys: Mild to moderate left hydronephrosis, due to an obstructing 6 mm stone in the mid to upper left ureter. Additional small nonobstructing stones and a coarse nonobstructing, irregular 13 mm stone in the inferior left kidney. Few tiny nonobstructing right renal stones. No right hydronephrosis. Bladder / Pelvic organs: Unremarkable. Bowel: No bowel obstruction. No abnormal bowel wall thickening. The appendix is unremarkable. Moderate gaseous distention of the large bowel, suggesting some degree of adynamic ileus. Lymph nodes: No retroperitoneal, mesenteric, or pelvic lymphadenopathy. Peritoneum / Retroperitoneum: No free fluid or air within the abdomen. Vessels: No infrarenal aortic aneurysm. Moderate to heavy aortoiliac calcification. Bones and soft tissues: No suspicious lesion in the bones. IMPRESSION: Mild to moderate left hydronephrosis, due to an obstructing 6 mm stone in the mid to upper left ureter. Electronically signed by Camilo Bullard 03-31-2025 3:23 PM Discharge Plan Visit Data Chief Complaint: Kidney Stone Stated Complaint: KIDNEY STONE, NAUSEA, DRY HEAVES ED Provider: David Stevenson Discharge Problem: Ureterolithiasis, Acute left flank pain Patient Disposition: Admitted As Inpatient Condition: Fair Discharge Instructions Interventions: ED Discharge Assessment Last Done: 03/31/25 17:50
--- NOTE | 2025-03-31 15:24 | CT Scan Report ---
EXAMINATION: CT of the abdomen and pelvis performed without contrast TECHNIQUE: Helical CT images from the lung bases through the symphysis pubis were obtained without contrast. Coronal and sagittal reformatted images were generated at a workstation for further assessment. Dose reduction techniques were achieved by using automatic exposure control and/or adjustment of mA and/or kV according to patient size and/or use of iterative reconstruction technique. COMPARISON: 01/28/2024 HISTORY: Abdominal pain FINDINGS: Lower chest: No consolidation. No pleural effusion or pneumothorax. Liver: No suspicious liver lesions. Gallbladder: Cholecystectomy changes. Spleen: Normal size. Pancreas: No suspicious pancreatic lesions. The pancreatic duct is not dilated. Adrenal glands: No adrenal nodules. Kidneys: Mild to moderate left hydronephrosis, due to an obstructing 6 mm stone in the mid to upper left ureter. Additional small nonobstructing stones and a coarse nonobstructing, irregular 13 mm stone in the inferior left kidney. Few tiny nonobstructing right renal stones. No right hydronephrosis. Bladder / Pelvic organs: Unremarkable. Bowel: No bowel obstruction. No abnormal bowel wall thickening. The appendix is unremarkable. Moderate gaseous distention of the large bowel, suggesting some degree of adynamic ileus. Lymph nodes: No retroperitoneal, mesenteric, or pelvic lymphadenopathy. Peritoneum / Retroperitoneum: No free fluid or air within the abdomen. Vessels: No infrarenal aortic aneurysm. Moderate to heavy aortoiliac calcification. Bones and soft tissues: No suspicious lesion in the bones. IMPRESSION: Mild to moderate left hydronephrosis, due to an obstructing 6 mm stone in the mid to upper left ureter. Electronically signed by Camilo Bullard 03-31-2025 3:23 PM
--- NOTE | 2025-03-31 16:43 | History & Physical Report ---
Date of Service March 31, 2025 Assessment & Plan (1) Acute left flank pain: Plan: Patient has a history of recurrent kidney stones. Presents to the hospital on account of acute left flank pain. Found to have an obstructing 6 mm stone in the left ureter Urology has been notified will control pain IV Dilaudid 0.5 mg every 6 hours as needed In the past, patient said Flomax has not helped him, will defer Make him n.p.o. after midnight IV normal saline 100 cc/h IV Zofran as needed (2) Ureterolithiasis: Plan: History of kidney stones as above According to the patient, since he has a passed 100s of stones (3) CAD, multiple vessel: Plan: Status post stents x 2 On Plavix and aspirin at home Hold Plavix in view of possible urological procedure (4) CAD (coronary artery disease): (5) Stenosis of right subclavian artery: (6) Renal artery stenosis: Plan Admit to [facility] Full code History of Present Illness Chief Complaint: Left flank pain Primary Care Provider: Jl Adams III, BEAN This is a 80-year-old male with a history of hypertension, sleep apnea, recurrent kidney stones, type 2 diabetes, renal artery stenosis, CAD status post stent who presents to the hospital today on account of left upper quadrant abdominal pain along with pain. Patient said that he was in his usual state of health up until around 3 PM when he noticed sudden onset of pain rated radiating down the flanks. Of note, patient has had a history of recurrent kidney stones since the and is in the process of passed 100s of stones. He follows up with Dr. Lopez with urology. Here in the emergency department WBC was 12,000 BMP was essentially within normal limits. CT scan of the abdomen and pelvis was done which showed a mild to moderate left hydronephrosis due to an obstructing 6 mm stone in the mid to upper left ureter. Urology has been notified patient be admitted to the hospital further management. Allergies Allergy/AdvReac Type Severity Reaction Status Date / Time Iodinated Contrast Media Allergy Severe Anaphylaxis Verified 02/25/25 10:56 walnut Allergy Severe Tongue Verified 02/25/25 10:56 swelling, dyspnea simvastatin AdvReac Mild GI symptoms Verified 02/25/25 10:56 Home Medications Medication Instructions Recorded Confirmed Type colchicine 0.6 mg tablet 0.6 mg PO BID PRN gout 08/14/19 02/25/25 History aspirin 81 mg tablet,delayed 81 mg PO QDL 09/07/19 02/25/25 History release (Iggy Low Dose Aspirin) atorvastatin 40 mg tablet 40 mg PO HS #90 tabs 09/07/19 02/25/25 Rx clopidogrel 75 mg tablet 75 mg PO QAM 09/07/19 02/25/25 History menthol 4 % topical gel (Biofreeze 1 appln topical QID PRN pain #89 mL 09/07/19 02/25/25 Rx (menthol)) nitroglycerin 0.4 mg sublingual 0.4 mg sublingual UD PRN Chest Pain 09/07/19 02/25/25 History tablet (Nitrostat) ondansetron 4 mg disintegrating 4 mg PO Q6H PRN nausea and 10/22/19 02/25/25 Rx tablet vomiting #30 tabs blood sugar diagnostic (FreeStyle #100 ea 04/15/20 02/25/25 Rx Lite Strips) docusate sodium 100 mg capsule 100 mg PO BID PRN Constipation 04/15/20 02/25/25 History folic acid 1 mg tablet 1 mg PO QDL 04/15/20 02/25/25 History amlodipine 5 mg tablet 5 mg PO BID #180 tabs 04/17/20 02/25/25 Rx spironolactone 25 mg tablet 25 mg PO QAM 12/09/20 02/25/25 History atenolol 25 mg tablet 12.5 mg (1/2 x 25 mg) PO HS #45 12/10/20 02/25/25 Rx tabs acetaminophen 325 mg tablet 325 mg PO QID PRN Pain 04/08/22 02/25/25 History blood-glucose,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 conveyor operator,cont #1 ea 05/04/23 02/25/25 Rx (Dexcom G6 Compliance Auditor) blood-glucose,boom conveyor operator,cont #1 ea 05/04/23 02/25/25 Rx (Dexcom G7 Compliance Auditor) arginine (L-arginine) 500 mg 500 mg PO DAILY #360 caps 11/02/23 02/25/25 Rx capsule ezetimibe 10 mg tablet (Zetia) 10 mg PO DAILY #90 tabs 01/27/24 02/25/25 Rx B-complex with vitamin C 1 tab PO DAILY 01/28/24 02/25/25 History ergocalciferol (vitamin D2) 1,250 1,250 mcg PO WK 01/28/24 02/25/25 History mcg (50,000 unit) capsule (Vitamin D2) Auto Titrating CPAP #1 ea 09/20/24 02/25/25 Rx CPAP Supplies #1 ea 09/20/24 02/25/25 Rx empagliflozin 25 mg tablet 12.5 mg (1/2 x 25 mg) PO DAILY 90 11/05/24 02/25/25 Rx (Jardiance) days #45 tabs insulin glargine U-300 conc 300 See Rx Instructions subcut 11/05/24 02/25/25 Rx unit/mL (1.5 mL) subcutaneous pen .COMPLEX 90 days #16.5 mL (Toujeo SoloStar U-300 Insulin) blood-glucose sensor (Dexcom G7 #9 ea 03/12/25 Rx Sensor device) Past Med/Surg History Problem List (Updated 03/31/25 @ 15:12 by David Stevenson MD) Acute left flank pain (Acute) Ureterolithiasis (Acute) Carpal tunnel syndrome, right Cervical radiculopathy Obesity Allergic rhinitis (Chronic) Asthma (Chronic) Facet syndrome, lumbar (Chronic) Hypercholesterolemia (Chronic) Impotence, organic (Chronic) Vitamin D deficiency (Chronic) BRITTANY (generalized anxiety disorder) (Chronic) CAD, multiple vessel Nocturnal hypoxemia due to asthma Bradycardia H/O vascular surgery Type 2 diabetes mellitus with diabetic neuropathy (Chronic) IDDM Degeneration of cervical intervertebral disc (Chronic) Recurrent nephrolithiasis (Chronic) Solitary thyroid nodule (Chronic) Sleep apnea (Chronic) CPAP + O2 @ 2 LPM qHS Lumbar canal stenosis (Chronic) Disc degeneration, lumbar (Chronic) Benign prostatic hyperplasia with urinary obstruction (Chronic) Hypertension (Chronic) Kidney disease (Chronic) Medical History Renal artery stenosis COVID-19 Multiple sclerosis History of exposure to asbestos On continuous oral anticoagulation Acute cholecystitis Temporal headache Stenosis of right subclavian artery Dysphagia Carotid artery stenosis History of stroke CAD (coronary artery disease) Gout HLD (hyperlipidemia) Hearing deficit Pulmonary nodule Chronic cough MVP (mitral valve prolapse) ENZO (acute kidney injury) History of tinnitus Poor circulation Homocystinemia Surgical History History of laparoscopic cholecystectomy S/P coronary artery stent placement Hx laparoscopic cholecystectomy (01/31/24) History of temporal artery biopsy History of lithotripsy (12/16/20) History of anesthesia reaction History of esophagogastroduodenoscopy (EGD) History of colonoscopy History of cardiac catheterization Status post laser lithotripsy of ureteral calculus S/P cystoscopy with ureteral stent placement Status post blepharoplasty of both eyes S/P hernia repair H/O sinus surgery Previous back surgery Family History Sister Ovarian cancer Congestive heart disease Heart disease Cancer Myocardial infarction Brother Heart disease Unknown Ovarian cancer Other No family history of adverse response to anesthesia No family history of bleeding disorder Denies family history of Prostate cancer Breast cancer Colorectal cancer Social History Smoking Status: Never smoker Second Hand Exposure: No; Do You Dip or Chew Tobacco: No; Hx Alcohol Use: No Hx Substance Use: No Preferred Language: Czech Communication Ability: Effective Visual Impairment: Limited Hearing Ability: Use of Hearing Aid 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: No Beliefs That Will Affect Care: None marital status: Current Living Situation: Spouse Current Living Situation Comment: Home current occupational status: retired How many Children do You have: 3 Feels Safe at Home: Yes Childhood Exposure to Second-Hand Smoke: Yes Diet: regular caffeine: Yes during the past year weight has: remained stable Dental Care, Regularly: Yes Physical Activity Frequency: 1-2 Times per Week Seatbelt Use: always Sunscreen Use: No Assistive Devices: CPAP, Glasses and Oxygen - at Night Review of Systems Review of Systems: All systems reviewed are negative, apart from the ones contained in the history. Physical Exam Physical Exam: The patient is awake, alert and oriented 3, well developed and well nourished, normocephalic and atraumatic, lying in bed and in no acute distress. HEENT--PERRL, EOMI, mucous membranes and oropharynx mildly dry Neck--supple. No JVD. No bruits. Thyroid normal, trachea midline, no adenopathy. Heart--normal S1 and S2. No murmurs, rubs or gallops. Lungs--clear bilaterally, no respiratory distress, no accessory muscle use. Abdomen--normal bowel sounds and soft. Extremities--no cyanosis or clubbing. No edema. Dermatologic--normal skin turgor, normal color, no abnormal lymph nodes, no rash. Neurologic--cranial nerves II through XII grossly intact. Rheumatologic--normal range of motion. Psychiatric--normal affect. Results & Data Results & Data Vital Signs (Past 12 Hours) Vital Signs Temp Pulse Pulse Resp BP BP Pulse Ox 03/31/25 14:53 53 L 20 131/63 94 03/31/25 13:03 55 L 23 97 03/31/25 13:00 161/89 H 03/31/25 12:51 56 L 12 95 03/31/25 12:12 57 L 19 95 03/31/25 12:08 58 L 03/31/25 11:50 97.0 F L 65 24 167/81 H 93 O2 Del Method 03/31/25 14:53 03/31/25 13:03 03/31/25 13:00 03/31/25 12:51 03/31/25 12:12 Room Air 03/31/25 12:08 03/31/25 11:50 Room Air PG Care Time/CCT Total # of Minutes Spent Total Time Spent with Patient: Total time spent is greater than 50% in coordination of care (as documented) at patient's floor/unit and/or counseling patient: Coding Level of Care Code 96416 INT INP/OBS CARE 3/75MIN Diagnoses Acute left flank pain R10.9 Ureterolithiasis N20.1 CAD, multiple vessel I25.10 CAD (coronary artery disease) I25.10 Stenosis of right subclavian artery I77.1 Renal artery stenosis I70.1 Time Spent (min) 75
[2025-03-31] MEDS ORDERED: ONDANSETRON INJ 2 MG/ML 2 ML VIAL IV PRN (17:55)
[2025-03-31] MEDS ORDERED: ACETAMINOPHEN 325 MG TAB PO PRN (17:55)
[2025-03-31] MEDS ORDERED: COLCHICINE 0.6 MG TAB PO PRN (17:55)
[2025-03-31] MEDS ORDERED: GLUCOSE 10 TAB/TUBE PO PRN (18:15)
[2025-03-31] MEDS ORDERED: GLUCOSE 40% GEL 15 GM TUBE PO PRN (18:15)
[2025-03-31] MEDS ORDERED: GLUCAGON FOR INJ 1 MG VIAL SQ PRN (18:15)
[2025-03-31] MEDS: SODIUM CHLORIDE 0.9% 1,000 ML IV SCH (18:27)
--- NOTE | 2025-03-31 19:18 | Urology Consultation ---
<Statement entered by Wilver Harden MD - 04/01/25 07:43> 80-year-old male admitted with nephrolithiasis. Low suspicion for infection at this time and kidney function appears stable. If pain can be controlled, may be a candidate for trial of medical expulsive therapy or definitive treatment as an outpatient, however if he has ongoing pain, could consider ureteral stent placement. Urology will follow along. Date of Consultation March 31, 2025 Assessment & Plan (1) Ureterolithiasis: The patient has been admitted on the hospitalist service. From a urologic perspective we recommend the following: Provide analgesics Provide antiemetics if needed Hydrate with IV fluids Strain all urine Patient has a Flomax has not helped in the past we will therefore defer this medication Would recommend keeping the patient n.p.o. for the present time At the present time the patient is nontoxic-appearing. He is normotensive without tachycardia, fever, or leukocytosis therefore conservative management is indicated at this time He will be reevaluated the morning of 03/24/2025 [facility] and a determination be made if patient will require cystoscopy Additional recommendations be forthcoming based on his clinical course as unfolds History of Present Illness Reason for Consultation: Nephrolithiasis Attending Physician: Julio César Newsome MD History of Present Illness This is a 80-year-old male who presented to the hospital secondary to left-sided flank pain. He says that the pain began yesterday shortly after he urinated. He says that the pain is located in his left flank with radiation to the front of his abdomen. He denies any nausea or vomiting. He denies any fevers, shakes, or chills. He denies any dysuria or hematuria. Patient does note that he follows locally with Dr. Rodrigo Savage of [facility] physician of urology. The patient says that he has had countless kidney stones. He does note that sometimes he is able to pass the kidney stones but sometimes he has required cystoscopic and sometimes lithotripsy. Intervention. Review of mukesh lang's record shows that his most recent requirement for lithotripsy was in August 2022 secondary to a right-sided kidney stone. Since arrival to the hospital he has had labs and imaging which I independent reviewed. CT scan of the abdomen pelvis showed the patient had moderate left hydronephrosis with an obstructing 6 mm kidney stone in the mid to upper left ureter. Labs included CBC white blood cell count was elevated 12.2. Hemoglobin and hematocrit as well as a platelet count were normal. Chemistry profile showed sodium and potassium as well as the BUN and creatinine were normal. Urin alysis was not indicative of infection. At the time of my interview the patient was resting comfortably in bed and he was in no distress. Allergies Allergy/AdvReac Type Severity Reaction Status Date / Time Iodinated Contrast Media Allergy Severe Anaphylaxis Verified 03/31/25 16:56 walnut Allergy Severe Tongue Verified 03/31/25 16:56 swelling, dyspnea simvastatin AdvReac Mild GI symptoms Verified 03/31/25 16:56 Home Medications Medication Instructions Recorded Confirmed Type aspirin 81 mg tablet,delayed 81 mg PO QDL 09/07/19 03/31/25 History release (Iggy Low Dose Aspirin) clopidogrel 75 mg tablet 75 mg PO QAM 09/07/19 03/31/25 History menthol 4 % topical gel (Biofreeze 1 appln topical QID PRN pain #89 mL 09/07/19 03/31/25 Rx (menthol)) nitroglycerin 0.4 mg sublingual 0.4 mg sublingual UD PRN Chest Pain 09/07/19 03/31/25 History tablet (Nitrostat) blood sugar diagnostic (FreeStyle #100 ea 04/15/20 02/25/25 Rx Lite Strips) docusate sodium 100 mg capsule 100 mg PO BID PRN Constipation 04/15/20 03/31/25 History folic acid 1 mg tablet 1 mg PO DAILY 04/15/20 03/31/25 History amlodipine 5 mg tablet 5 mg PO BID #180 tabs 04/17/20 03/31/25 Rx spironolactone 25 mg tablet 25 mg PO QAM 12/09/20 03/31/25 History acetaminophen 325 mg tablet 650 mg PO DAILY PRN 04/08/22 03/31/25 History Pain/Fever/Headache blood-glucose,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 machine operator,cont #1 ea 05/04/23 02/25/25 Rx (Dexcom G6 Teacher) blood-glucose,compress machine operator,cont #1 ea 05/04/23 02/25/25 Rx (Dexcom G7 Teacher) arginine (L-arginine) 500 mg 500 mg PO DAILY #360 caps 11/02/23 03/31/25 Rx capsule ezetimibe 10 mg tablet (Zetia) 10 mg PO DAILY #90 tabs 01/27/24 03/31/25 Rx B-complex with vitamin C 1 tab PO DAILY 01/28/24 03/31/25 History ergocalciferol (vitamin D2) 1,250 1,250 mcg PO WK 01/28/24 03/31/25 History mcg (50,000 unit) capsule (Vitamin D2) Auto Titrating CPAP #1 ea 09/20/24 02/25/25 Rx CPAP Supplies #1 ea 09/20/24 02/25/25 Rx empagliflozin 25 mg tablet 12.5 mg (1/2 x 25 mg) PO DAILY 90 11/05/24 03/31/25 Rx (Jardiance) days #45 tabs insulin glargine U-300 conc 300 See Rx Instructions subcut 11/05/24 03/31/25 Rx unit/mL (1.5 mL) subcutaneous pen .COMPLEX 90 days #16.5 mL (Toujeo SoloStar U-300 Insulin) blood-glucose sensor (Dexcom G7 #9 ea 03/12/25 Rx Sensor device) atenolol 25 mg tablet 25 mg PO HS 03/31/25 03/31/25 History atorvastatin 80 mg tablet 40 mg PO DAILY 03/31/25 03/31/25 History carboxymethylcellulose sodium 0.5 1 drp ophthalmic (eye) TID 03/31/25 03/31/25 History % eye drops cyanocobalamin (vitamin B-12) 1,000 mcg PO DAILY 03/31/25 03/31/25 History 1,000 mcg tablet (Vitamin B-12) cyclosporine 0.05 % eye drops 1 drp ophthalmic (eye) BID 03/31/25 03/31/25 History lanolin alcohols-mineral 1 applic topical DAILY PRN Dry 03/31/25 03/31/25 History oil-w.petrolatum-ceresin topical skin/Callusing/Fissuring on feet cream (Eucerin topical cream) lidocaine 5 % topical patch 1 patch topical DAILY 03/31/25 03/31/25 History urea 20 % topical cream 1 applic topical DAILY PRN Dry 03/31/25 03/31/25 History skin/Callusing/Fissuring on feet Patient History Medical History Renal artery stenosis 50% Proximal right renal artery stenosis, no significant disease of the left renal artery 11/06/20 arteriogram COVID-19 Multiple sclerosis History of exposure to asbestos On continuous oral anticoagulation Acute cholecystitis Temporal headache temporal bx 04/2022 neg per pt. planning for lumbar puncture at [facility] 08/04/22. Stenosis of right subclavian artery Approx 60% per 02/2022 vascular records- recommend BP be taken in left arm for accuracy purposes Dysphagia Has had ongoing for 30+ yrs, no issues with at present Carotid artery stenosis Per 01/2022 Carotid Doppler= <50% stenosis in the bilateral ICAs; >50% arterial occlusive disease in right subclavian History of stroke 5+ years ago, no residual effects > Plavix CAD (coronary artery disease) JAQUI x2 to prox and mid LAD (11/06/20), BMS x 1 to LCx (2009) Gout HLD (hyperlipidemia) Hearing deficit B/L RODRIGUEZ Pulmonary nodule Chronic cough MVP (mitral valve prolapse) MV anatomy "normal" per 10/26/20 echo ENZO (acute kidney injury) History of tinnitus Poor circulation Homocystinemia Surgical History History of laparoscopic cholecystectomy S/P coronary artery stent placement Hx laparoscopic cholecystectomy (01/31/24) Robotic Laparoscopic Cholecystectomy(Not Applicable) - [place] Vega, DO, FACS History of temporal artery biopsy History of lithotripsy (12/16/20) left laser lithotripsy ([facility]) History of anesthesia reaction hx post op ileus History of esophagogastroduodenoscopy (EGD) History of colonoscopy History of cardiac catheterization JAQUI x2 to LAD (11/06/20), stent x1 (2009) Status post laser lithotripsy of ureteral calculus S/P cystoscopy with ureteral stent placement cystoscopy, left ureteroscopy, laser lithotripsy, left ureteral stent (10/22/2020): Grade view 1, Tong #2, ET tube #[address] [facility] Status post blepharoplasty of both eyes and brow lift- [facility] [place] S/P hernia repair H/O sinus surgery Previous back surgery lumbar Family History Sister Ovarian cancer Congestive heart disease Heart disease Cancer Myocardial infarction Brother Heart disease Unknown Ovarian cancer Other No family history of adverse response to anesthesia No family history of bleeding disorder Denies family history of Prostate cancer Breast cancer Colorectal cancer Social History Smoking Status: Never smoker Second Hand Exposure: No; Do You Dip or Chew Tobacco: No; Hx Alcohol Use: No Hx Substance Use: No Preferred Language: Greek Communication Ability: Effective Visual Impairment: Limited Hearing Ability: Use of Hearing Aid Applications Consultant Required: No Beliefs That Will Affect Care: None marital status: Current Living Situation: Spouse Current Living Situation Comment: Home current occupational status: retired How many Children do You have: 3 Feels Safe at Home: Yes Childhood Exposure to Second-Hand Smoke: Yes Diet: regular caffeine: Yes during the past year weight has: remained stable Dental Care, Regularly: Yes Physical Activity Frequency: 1-2 Times per Week Seatbelt Use: always Sunscreen Use: No Assistive Devices: Glasses Review of Systems Review of Systems: All systems reviewed & are unremarkable except as noted in HPI & below Physical Exam Constitutional: WD/WN, vitals as above Eyes: Wears glasses ENMT: Ears: no hearing impairment and no external ear abnormality Mouth: no oropharynx abnormality Neck: trachea midline Respiratory: normal respiratory effort; no respiratory distress and no labored breathing Cardiovascular: Rate/Rhythm: regular rate and regular rhythm Gastrointestinal (Abdomen): Abdomen is soft without distention. There is no pain with palpation Musculoskeletal: No gross orthopedic abnormalities Skin: no rashes Neurologic: moves all extremities Psychiatric: A+Ox3, euthymic affect Genitourinary: CVA tenderness noted with percussion on the left. None on the right Results & Data Vital Signs (Past 12 Hours) Vital Signs Temp Pulse Pulse Pulse Resp BP BP 03/31/25 17:51 36.3 C L 66 18 174/72 H 03/31/25 17:50 03/31/25 14:53 53 L 20 131/63 03/31/25 13:03 55 L 23 03/31/25 13:00 161/89 H 03/31/25 12:51 56 L 12 03/31/25 12:12 57 L 19 03/31/25 12:08 58 L 03/31/25 11:50 36.1 C L 65 24 167/81 H Pulse Ox O2 Del Method 03/31/25 17:51 94 Room Air 03/31/25 17:50 Room Air 03/31/25 14:53 94 03/31/25 13:03 97 03/31/25 13:00 03/31/25 12:51 95 03/31/25 12:12 95 Room Air 03/31/25 12:08 03/31/25 11:50 93 Room Air PG Care Time/CCT Total # of Minutes Spent Total Time Spent with Patient: Total time spent is greater than 50% in coordination of care (as documented) at patient's floor/unit and/or counseling patient: Coding Level of Care Code 12702 INT INP/OBS CARE 375MIN Diagnoses Ureterolithiasis N20.1
[2025-03-31] MEDS: LANTUS PER UNIT CHARGE SQ SCH (20:02)
[2025-03-31] MEDS: ATORVASTATIN 40 MG TAB PO SCH (20:08)
[2025-04-01] MEDS: SPIRONOLACTONE 25 MG TAB PO SCH (08:48)
[2025-04-01] MEDS: LANTUS PER UNIT CHARGE SQ SCH (08:48)
[2025-04-01] MEDS: EZETIMIBE 10 MG TAB PO SCH (08:48)
[2025-04-01 08:52] LABS: Hematocrit (blood only) 44.9 % (42.0-52.0); Hemoglobin 14.2 g/dl (14.0-18.0); Mean Corpuscular Hemoglobin 26.3 pg (25.0-34.0); Mean Corpuscular Volume 83.1 fL (80.0-100.0); Platelet Count 208 K/uL (130-400); RDW Standard Deviation 49.2 fL (36.4-46.3); Red Blood Count 5.40 M/uL (4.70-6.10); White Blood Count 12.65 K/ul (4.8-10.8)
[2025-04-01] MEDS ORDERED: LANTUS PER UNIT CHARGE SQ SCH (09:00)
[2025-04-01 09:09] LABS: Anion Gap 5.0 (3-11); Blood Urea Nitrogen 19.0 mg/dl (6-23); Calcium 8.8 mg/dl (8.6-10.3); Carbon Dioxide 29.0 mmol/L (21-32); Chloride 107.0 mmol/L (98-107); Creatinine Clr Calc Pharmacy 43.9 ml/min; Glucose 77.0 mg/dl (70-99(Fasting)); Potassium 3.9 mmol/L (3.5-5.1); Sodium 141.0 mmol/L (136-145)
--- NOTE | 2025-04-01 09:15 | Urology Progress Note ---
Date of Service April 01, 2025 Assessment & Plan (1) Acute left flank pain: (2) Ureterolithiasis: Plan: Follow-up of left flank pain secondary to 6 mm left ureteral stone Patient afebrile, hemodynamically stable Labs todaycreatinine 1.65 (previously 1.29), WBC 12.65, hemoglobin 14.2 Continues to have intermittent left flank pain Discussed options for stone management including outpatient options versus cystoscopy and left ureteral stent placement today We discussed that stone treatment would take place at a later date Ureteral stents were discussed in detail After discussion, he would like to proceed with surgical intervention today Proceed to OR with cystoscopy, retrograde pyelogram and left ureteral stent placement with Dr. Royal Risks and benefits of procedure to be reviewed with patient by Dr. Royal Preoperative antibiotic ordered Keep patient NPO Continue supportive care medical management per hospital medicine service Admission and Anticipated Discharge Date Admission Date: March 31, 2025 Supervising Physician Co-Signing Physician Notes Discussed patient with DAVID. Agree with plan. Plan for cysto left stent placement. Consent obtained, patient marked Subjective Patient continues to have intermittent left flank pain Voiding spontaneously No fever or chills Currently NPO Review of Systems Constitutional: as per Subjective / HPI Genitourinary: + as per Subjective / HPI Physical Exam Constitutional: well developed and well nourished; no acute distress Respiratory: normal respiratory effort; no respiratory distress and no labored breathing Gastrointestinal (Abdomen): Inspection/Auscultation: abdomen normal to inspection Musculoskeletal: Head/Neck/Chest: normocephalic Neurologic: moves all extremities and awake Psychiatric: Orientation: alert and oriented x 3 Results & Data Vital Signs (Past 12 Hours) Vital Signs Pulse Resp BP Pulse Ox O2 Del Method 04/01/25 07:33 62 18 150/77 H 96 Room Air PG Care Time/CCT Total # of Minutes Spent Total Time Spent with Patient: Total time spent is greater than 50% in coordination of care (as documented) at patient's floor/unit and/or counseling patient: Coding Level of Care Code 31277 SUB INP/OBS CARE 2/35MIN Diagnoses Acute left flank pain R10.9 Ureterolithiasis N20.1
--- NOTE | 2025-04-01 10:51 | Hospitalist Progress Note ---
Date of Service April 01, 2025 Assessment & Plan (1) Acute left flank pain: Plan: Patient has a history of recurrent kidney stones. Presents to the hospital on account of acute left flank pain. Found to have an obstructing 6 mm stone in the left ureter Per Urology, plan is OR with cystoscopy, retrograde pyelogram and left ureteral stent placement today (2) Ureterolithiasis: Plan: History of kidney stones as above According to the patient, since he has a passed 100s of stones (3) CAD, multiple vessel: Plan: Status post stents x 2 On Plavix and aspirin at home Hold Plavix in view of possible urological procedure (4) CAD (coronary artery disease): (5) Stenosis of right subclavian artery: (6) Renal artery stenosis: Plan Admit to [facility] Full code Admission and Anticipated Discharge Date Admission Date: March 31, 2025 Subjective Patient seen and examined, still complaining of flank pain, plan is for the OR today for stent placement Review of Systems Review of Systems: All systems reviewed are negative, apart from the ones contained in the history. Physical Exam Physical Exam: The patient is awake, alert and oriented 3, well developed and well nourished, normocephalic and atraumatic, lying in bed and in no acute distress. HEENT--PERRL, EOMI, mucous membranes and oropharynx mildly dry Neck--supple. No JVD. No bruits. Thyroid normal, trachea midline, no adenopathy. Heart--normal S1 and S2. No murmurs, rubs or gallops. Lungs--clear bilaterally, no respiratory distress, no accessory muscle use. Abdomen--normal bowel sounds and soft. Extremities--no cyanosis or clubbing. No edema. Dermatologic--normal skin turgor, normal color, no abnormal lymph nodes, no rash. Neurologic--cranial nerves II through XII grossly intact. Rheumatologic--normal range of motion. Psychiatric--normal affect. Results & Data Results & Data Vital Signs (Past 12 Hours) Vital Signs Pulse Resp BP Pulse Ox O2 Del Method 04/01/25 07:33 62 18 150/77 H 96 Room Air PG Care Time/CCT Total # of Minutes Spent Total Time Spent with Patient: Total time spent is greater than 50% in coordination of care (as documented) at patient's floor/unit and/or counseling patient: Coding Level of Care Code 63066 SUB INP/OBS CARE 2/35MIN Diagnoses Acute left flank pain R10.9 Ureterolithiasis N20.1 CAD, multiple vessel I25.10 CAD (coronary artery disease) I25.10 Stenosis of right subclavian artery I77.1 Renal artery stenosis I70.1 Time Spent (min) 35
[2025-04-01] MEDS: ASPIRIN 81 MG ECTAB PO SCH (11:59)
[2025-04-01] MEDS: FOLIC ACID 1 MG TAB PO SCH (11:59)
--- NOTE | 2025-04-01 12:36 | Anesthesiology Consultation ---
Date of Service April 01, 2025 Assessment & Plan (1) Encounter for pre-operative examination: Chart Review Chart Review: Acceptable Risk for Surgery History Surgery Operation Date: 04/01/25 12:20 Proposed Procedures p Cystoscopy, Left Ureteral Stent Placement - Almas Royal MD Height/Weight Height: 5 ft 11 in Weight: 97.3 kg Allergies Allergy/AdvReac Type Severity Reaction Status Date / Time Iodinated Contrast Media Allergy Severe Anaphylaxis Verified 03/31/25 16:56 walnut Allergy Severe Tongue Verified 03/31/25 16:56 swelling, dyspnea simvastatin AdvReac Mild GI symptoms Verified 03/31/25 16:56 Medications Home Medications Medication Instructions Recorded Confirmed Last Taken aspirin 81 mg tablet,delayed 81 mg PO QDL 09/07/19 03/31/25 01/27/24 release (Iggy Low Dose Aspirin) clopidogrel 75 mg tablet 75 mg PO QAM 09/07/19 03/31/25 01/27/24 menthol 4 % topical gel (Biofreeze 1 appln topical QID PRN pain #89 mL 09/07/19 03/31/25 Unknown (menthol)) nitroglycerin 0.4 mg sublingual 0.4 mg sublingual UD PRN Chest Pain 09/07/19 03/31/25 Unknown tablet (Nitrostat) blood sugar diagnostic (FreeStyle #100 ea 04/15/20 02/25/25 Unknown Lite Strips) docusate sodium 100 mg capsule 100 mg PO BID PRN Constipation 04/15/20 03/31/25 Unknown folic acid 1 mg tablet 1 mg PO DAILY 04/15/20 03/31/25 01/27/24 amlodipine 5 mg tablet 5 mg PO BID #180 tabs 04/17/20 03/31/25 01/27/24 spironolactone 25 mg tablet 25 mg PO QAM 12/09/20 03/31/25 01/27/24 acetaminophen 325 mg tablet 650 mg PO DAILY PRN 04/08/22 03/31/25 Unknown Pain/Fever/Headache blood-glucose,grinding wheel facer,cont #1 ea 05/04/23 02/25/25 Unknown (Dexcom G6 Linter Operator) blood-glucose,grinding wheel facer,cont #1 ea 05/04/23 02/25/25 Unknown (Dexcom G7 Linter Operator) arginine (L-arginine) 500 mg 500 mg PO DAILY #360 caps 11/02/23 03/31/25 01/27/24 capsule ezetimibe 10 mg tablet (Zetia) 10 mg PO DAILY #90 tabs 01/27/24 03/31/25 01/27/24 B-complex with vitamin C 1 tab PO DAILY 01/28/24 03/31/25 01/27/24 ergocalciferol (vitamin D2) 1,250 1,250 mcg PO WK 01/28/24 03/31/25 Unknown mcg (50,000 unit) capsule (Vitamin D2) Auto Titrating CPAP #1 ea 09/20/24 02/25/25 Unknown CPAP Supplies #1 ea 09/20/24 02/25/25 Unknown empagliflozin 25 mg tablet 12.5 mg (1/2 x 25 mg) PO DAILY 90 11/05/24 03/31/25 Unknown (Jardiance) days #45 tabs insulin glargine U-300 conc 300 See Rx Instructions subcut 11/05/24 03/31/25 Unknown unit/mL (1.5 mL) subcutaneous pen .COMPLEX 90 days #16.5 mL (Toujeo SoloStar U-300 Insulin) blood-glucose sensor (Dexcom G7 #9 ea 03/12/25 Unknown Sensor device) atenolol 25 mg tablet 25 mg PO HS 03/31/25 03/31/25 Unknown atorvastatin 80 mg tablet 40 mg PO DAILY 03/31/25 03/31/25 Unknown carboxymethylcellulose sodium 0.5 1 drp ophthalmic (eye) TID 03/31/25 03/31/25 Unknown % eye drops cyanocobalamin (vitamin B-12) 1,000 mcg PO DAILY 03/31/25 03/31/25 Unknown 1,000 mcg tablet (Vitamin B-12) cyclosporine 0.05 % eye drops 1 drp ophthalmic (eye) BID 03/31/25 03/31/25 Unknown lanolin alcohols-mineral 1 applic topical DAILY PRN Dry 03/31/25 03/31/25 Unknown oil-w.petrolatum-ceresin topical skin/Callusing/Fissuring on feet cream (Eucerin topical cream) lidocaine 5 % topical patch 1 patch topical DAILY 03/31/25 03/31/25 Unknown urea 20 % topical cream 1 applic topical DAILY PRN Dry 03/31/25 03/31/25 Unknown skin/Callusing/Fissuring on feet Active Medications Generic Name Dose Route Start Last Admin Trade Name Freq PRN Reason Stop Dose Admin Aspirin 81 mg 04/01/25 11:30 04/01/25 11:59 Aspirin 81 Mg Ectab PO 05/01/25 11:29 81 mg QDL REAGAN Administration Atorvastatin Calcium 40 mg 03/31/25 21:00 03/31/25 20:08 Atorvastatin 40 Mg Tab PO 04/30/25 20:59 40 mg HS REAGAN Administration Ezetimibe 10 mg 04/01/25 09:00 04/01/25 08:48 Ezetimibe 10 Mg Tab PO 05/01/25 08:59 10 mg DAILY REAGAN Administration Folic Acid 1 mg 04/01/25 11:30 04/01/25 11:59 Folic Acid 1 Mg Tab PO 05/01/25 11:29 1 mg QDL REAGAN Administration Hydromorphone HCl 0.25 mg 03/31/25 12:47 04/01/25 11:59 Hydromorphone Inj 0.5 Mg/0.5 Ml Syr IV 04/14/25 12:46 0.25 mg Q15M PRN Administration Pain Hydromorphone HCl 0.5 mg 03/31/25 17:55 04/01/25 05:00 Hydromorphone Inj 0.5 Mg/0.5 Ml Syr IV 04/14/25 17:54 0.5 mg Q6H PRN Administration Pain Sodium Chloride 1,000 mls @ 80 mls/hr 03/31/25 17:55 04/01/25 11:01 Nss IV 04/03/25 17:54 80 mls/hr .[id number] REAGAN Infusion Insulin Glargine 28 units 03/31/25 21:00 03/31/25 20:02 Lantus Per Unit Charge SQ 04/30/25 20:59 28 units HS REAGAN Administration Insulin Glargine 32 units 04/01/25 09:00 04/01/25 08:48 Lantus Per Unit Charge SQ 05/01/25 08:59 Not Given DAILY REAGAN Spironolactone 25 mg 04/01/25 09:00 04/01/25 08:48 Spironolactone 25 Mg Tab PO 05/01/25 08:59 25 mg QAM REAGAN Administration Past Medical History Medical History Renal artery stenosis 50% Proximal right renal artery stenosis, no significant disease of the left renal artery 11/06/20 arteriogram COVID-19 Multiple sclerosis History of exposure to asbestos On continuous oral anticoagulation Acute cholecystitis Temporal headache temporal bx 04/2022 neg per pt. planning for lumbar puncture at [facility] 08/04/22. Stenosis of right subclavian artery Approx 60% per 02/2022 vascular records- recommend BP be taken in left arm for accuracy purposes Dysphagia Has had ongoing for 30+ yrs, no issues with at present Carotid artery stenosis Per 01/2022 Carotid Doppler= <50% stenosis in the bilateral ICAs; >50% arterial occlusive disease in right subclavian History of stroke 5+ years ago, no residual effects > Plavix CAD (coronary artery disease) JAQUI x2 to prox and mid LAD (11/06/20), BMS x 1 to LCx (2009) Gout HLD (hyperlipidemia) Hearing deficit B/L RODRIGUEZ Pulmonary nodule Chronic cough MVP (mitral valve prolapse) MV anatomy "normal" per 10/26/20 echo ENZO (acute kidney injury) History of tinnitus Poor circulation Homocystinemia Past Family History Family History Sister Ovarian cancer Congestive heart disease Heart disease Cancer Myocardial infarction Brother Heart disease Unknown Ovarian cancer Other No family history of adverse response to anesthesia No family history of bleeding disorder Denies family history of Prostate cancer Breast cancer Colorectal cancer Past Surgical History Surgical History History of laparoscopic cholecystectomy S/P coronary artery stent placement Hx laparoscopic cholecystectomy (01/31/24) Robotic Laparoscopic Cholecystectomy(Not Applicable) - Indio Vega, DO, FACS History of temporal artery biopsy History of lithotripsy (12/16/20) left laser lithotripsy ([facility]) History of anesthesia reaction hx post op ileus History of esophagogastroduodenoscopy (EGD) History of colonoscopy History of cardiac catheterization JAQUI x2 to LAD (11/06/20), stent x1 (2009) Status post laser lithotripsy of ureteral calculus S/P cystoscopy with ureteral stent placement cystoscopy, left ureteroscopy, laser lithotripsy, left ureteral stent (10/22/2020): Grade view 1, Tong #2, ET tube #8 at [facility] Status post blepharoplasty of both eyes and [place] [facility] [place] S/P hernia repair H/O sinus surgery Previous back surgery lumbar Social History Smoking Status: Never smoker Do You Dip or Chew Tobacco: No Hx Alcohol Use: No Hx Substance Use: No substance use type: does not use Physical Exam Vital Signs Last Vital Signs Temp 36.3 C L 03/31/25 20:00 Pulse 62 04/01/25 07:33 Resp 18 04/01/25 07:33 BP 150/77 H 04/01/25 07:33 Pulse Ox 96 04/01/25 07:33 O2 Del Method Room Air 04/01/25 07:33 O2 Flow Rate 2 03/31/25 20:05 Testing Laboratory Results 04/01/25 07:44 04/01/25 07:44 Urine Color Yellow 03/31/25 12:03 Urine Appearance Clear (Clear) 03/31/25 12:03 Urine pH 5.0 (4.5-7.5) 03/31/25 12:03 Ur Specific [place] 1.026 (1.000-1.030) 03/31/25 12:03 Urine Protein Negative (Negative) 03/31/25 12:03 Urine Glucose (UA) 3+ (Negative) H 03/31/25 12:03 Urine Ketones Negative (Negative) 03/31/25 12:03 Urine Nitrite Negative (Negative) 03/31/25 12:03 Ur Leukocyte Esterase Negative (Negative) 03/31/25 12:03 Urine WBC (Auto) 0-5 /hpf (0-5) 03/31/25 12:03 Urine RBC (Auto) 0-2 /hpf (0-2) 03/31/25 12:03 U Hyaline Cast (Auto) 0-2 /lpf (0-2) 03/31/25 12:03 U Epithel Cells (Auto) 0-2 /hpf (0-2) 03/31/25 12:03 Urine Bacteria (Auto) None Seen (None Seen) 03/31/25 12:03 04/01/25 04/01/25 11:59 06:18 POC Glucose 73 73
[2025-04-01] MEDS: DEXTROSE 50% 50 ML SYRINGE IV PRN (13:09)
[2025-04-01] MEDS ORDERED: PROPOFOL IV EMULSION 10 MG/ML 20 ML VIAL IV ONE ×2 (13:38→14:46)
[2025-04-01] MEDS ORDERED: LIDOCAINE 2% 2 ML VIAL/AMP(20MG/ML) INFIL ONE ×2 (13:38→14:46)
[2025-04-01] MEDS ORDERED: ONDANSETRON INJ 2 MG/ML 2 ML VIAL ONE (13:39)
[2025-04-01] MEDS: DEXTROSE 50% 50 ML SYRINGE IV ONE (14:38)
[2025-04-01] MEDS: DIATRIZOATE MEGLUMINE 30% 100ML VIAL INSTIL PRN (15:57)
--- NOTE | 2025-04-01 15:59 | Operative Report ---
PG Post Operative Report Pre & Post Diagnosis Operation Date: 04/01/25 12:20 Pre-Op Diagnosis: Left ureteral stone. Post-Op Diagnosis: Left ureteral stone. I identified the patient and participated in the time-out.: Yes Procedure Operation Date: 04/01/25 12:20 Actual Procedures p Cystoscopy, left retrograde with radiograph interpretation, left Ureteral St ent Placement(Left) - Almas Royal MD Surgeon Almas Royal MD Student Financial Aid Manager None Estimated Blood Loss 0 Findings See Below Mild left hydro. Stent is in appropriate position. Specimens None Drains 6 [place] by 26 cm left ureteral stent Indications 80-year-old male with obstructing left ureteral calculus Description of Procedure After informed consent was obtained, the patient was transported operative suite. MAC anesthesia was induced. The patient was placed in dorsal lithotomy position prepped and draped in a sterile fashion. They received preoperative Ancef for antibiotic prophylaxis. An appropriate surgical timeout was performed. A 22 [place] rigid scope was inserted per urethra into the bladder. Díaz cystoscopy revealed no stones or lesions. I turned my attention the left ureteral orifice and intubated this with a 5 [place] open-ended catheter. A left retrograde pyelogram was shot which showed mild left hydro. A sensor wire was advanced into the kidney and confirmed fluoroscopically. A 6 [place] by 26 cm left ureteral stent was deployed with a good proximal coil in the renal pelvis and a good distal coil noted in the bladder. These were confirmed fluoroscopically and under direct visualization, respectively. The bladder was emptied and the scope was removed. This concluded the end of the case. All counts were correct at the end of the case. I was present, scrubbed, and actively participated for the entirety of the procedure. I attest to the content of the Intraoperative Record and any orders documented therein. Any exceptions are noted below.
--- NOTE | 2025-04-01 16:18 | Anesthesiology Progress Note ---
Date of Service April 01, 2025 Anesthesia Post Procedure Vital Signs Vital Signs: Temp Pulse Pulse Resp BP BP Pulse Ox 04/01/25 16:05 36.3 C L 58 L 12 109/55 L 94 04/01/25 13:11 37 C 72 18 161/73 H 94 04/01/25 07:33 62 18 150/77 H 96 03/31/25 20:05 03/31/25 20:00 36.3 C L 59 L 20 142/79 H 95 03/31/25 17:51 36.3 C L 66 18 174/72 H 94 03/31/25 17:50 O2 Del Method O2 Flow Rate 04/01/25 16:05 Oxymask 4 04/01/25 13:11 Room Air 04/01/25 07:33 Room Air 03/31/25 20:05 Nasal Cannula 2 03/31/25 20:00 Room Air 03/31/25 17:51 Room Air 03/31/25 17:50 Room Air Pain Intensity Left Flank: Pain Intensity: 5 Transfer of Care Handoff Completed per policy Notes Mental Status: alert / awake / arousable and participated in evaluation Patient Amnestic to Procedure: Yes Nausea / Vomiting: adequately controlled Pain: adequately controlled Airway Patency, RR, SpO2: stable & adequate BP & HR: stable & adequate Hydration State: stable & adequate Anesthetic Complications: no major complications apparent and Pt Satisfied with anesthetic care
[2025-04-02 07:13] VITALS: BP 125/70; PULSE 56; RESP 16; TEMP 97.7; O2SAT 93
[2025-04-02] MEDS: CARBOHYDRATES FOR HYPOGLYCEMIA PO PRN (07:56)
[2025-04-02 08:26] LABS: Hematocrit (blood only) 41.6 % (42.0-52.0); Hemoglobin 12.9 g/dl (14.0-18.0); Mean Corpuscular Hemoglobin 26.1 pg (25.0-34.0); Mean Corpuscular Volume 84.2 fL (80.0-100.0); Platelet Count 186 K/uL (130-400); RDW Standard Deviation 49.8 fL (36.4-46.3); Red Blood Count 4.94 M/uL (4.70-6.10); White Blood Count 9.02 K/ul (4.8-10.8)
--- NOTE | 2025-04-02 08:41 | Urology Progress Note ---
Date of Service April 02, 2025 Assessment & Plan (1) Ureterolithiasis: (2) Acute left flank pain: Plan: - Pt POD#1 s/p cystoscopy and left ureteral stent placement - Doing well, progressing as expected - Afebrile, stable vitals - Lab work reviewed - creatinine 1.43, WBC 9.02 - Tolerating left ureteral stent with some bother - Okay to d/c from perspective when medically stable - Recommend add Tamsulosin and Pyridium for stent management and discharge him w ith these medications - Expected clinical course reviewed, all questions answered - Will arrange outpatient follow-up with our service to set up definitive stone management - will sign off, please contact our service with any additional questions or concerns Admission and Anticipated Discharge Date Admission Date: March 31, 2025 Subjective Patient sitting up in bed eating breakfast Reports dysuria Hematuria post procedure, clearing this am Reports some left flank discomfort No fever or chills Review of Systems Constitutional: as per Subjective / HPI Genitourinary: + as per Subjective / HPI Physical Exam Constitutional: well developed and well nourished; no acute distress Respiratory: normal respiratory effort; no respiratory distress and no labored breathing Gastrointestinal (Abdomen): Inspection/Auscultation: abdomen normal to inspection Musculoskeletal: Head/Neck/Chest: normocephalic Neurologic: moves all extremities and awake Psychiatric: Orientation: alert and oriented x 3 Results & Data Vital Signs (Past 12 Hours) Vital Signs Temp Pulse Resp BP Pulse Ox O2 Del Method O2 Flow Rate 04/02/25 07:12 36.5 C 56 L 16 125/70 93 Room Air 04/02/25 03:24 36.7 C 54 L 14 122/62 96 Nasal Cannula 2 04/01/25 22:56 37.1 C 62 18 158/68 H 93 Room Air PG Care Time/CCT Total # of Minutes Spent Total Time Spent with Patient: Total time spent is greater than 50% in coordination of care (as documented) at patient's floor/unit and/or counseling patient: Coding Level of Care Code 72324 SUB INP/OBS CARE 09/29MIN Diagnoses Ureterolithiasis N20.1 Acute left flank pain R10.9
--- NOTE | 2025-04-02 08:47 | Fluoroscopy Report ---
FL KUB CLINICAL HISTORY: ADD ON LEFT STENT COMPARISON STUDY: None FLUOROSCOPY TIME: 7 seconds FLUOROSCOPY IMAGES: 2 EXPOSURE DOSE: 2 mGy FINDINGS: Fluoroscopy was provided for urologic procedure. IMPRESSION: Intraoperative fluoroscopy. ACT 112: Negative or not required by law. Electronically signed by: [place]io Thompson M.D. 04/02/2025 8:46 AM
[2025-04-02 09:16] LABS: Anion Gap 5.0 (3-11); Calcium 8.6 mg/dl (8.6-10.3); Carbon Dioxide 28.0 mmol/L (21-32); Chloride 107.0 mmol/L (98-107); Potassium 3.7 mmol/L (3.5-5.1); Sodium 140.0 mmol/L (136-145)
[2025-04-02 09:22] LABS: Blood Urea Nitrogen 20.0 mg/dl (6-23); Creatinine Clr Calc Pharmacy 50.6 ml/min; Glucose 66.0 mg/dl (70-99(Fasting))
[2025-04-02] MEDS: TAMSULOSIN HCL 0.4 MG CAP PO ONE (10:21)
[2025-04-02] MEDS: PHENAZOPYRIDINE HCL 200 MG TAB PO PRN (10:48)
--- NOTE | 2025-04-02 11:02 | Discharge Summary ---
Date of Service April 02, 2025 Admission HPI Per Admitting Provider This is a 80-year-old male with a history of hypertension, sleep apnea, recurrent kidney stones, type 2 diabetes, renal artery stenosis, CAD status post stent who presents to the hospital today on account of left upper quadrant abdominal pain along with pain. Patient said that he was in his usual state of health up until around 3 PM when he noticed sudden onset of pain rated radiating down the flanks. Of note, patient has had a history of recurrent kidney stones since the and is in the process of passed 100s of stones. He follows up with Dr. Lopez with urology. Here in the emergency department WBC was 12,000 BMP was essentially within normal limits. CT scan of the abdomen and pelvis was done which showed a mild to moderate left hydronephrosis due to an obstructing 6 mm stone in the mid to upper left ureter. Urology has been notified patient be admitted to the hospital further management. Admission Exam (Per Admitting) Constitutional The patient is awake, alert and oriented 3, well developed and well nourished, normocephalic and atraumatic, lying in bed and in no acute distress. HEENT--PERRL, EOMI, mucous membranes and oropharynx mildly dry Neck--supple. No JVD. No bruits. Thyroid normal, trachea midline, no adenopathy. Heart--normal S1 and S2. No murmurs, rubs or gallops. Lungs--clear bilaterally, no respiratory distress, no accessory muscle use. Abdomen--normal bowel sounds and soft. Extremities--no cyanosis or clubbing. No edema. Dermatologic--normal skin turgor, normal color, no abnormal lymph nodes, no rash. Neurologic--cranial nerves II through XII grossly intact. Rheumatologic--normal range of motion. Psychiatric--normal affect. Discharge Data Consultations 03/31/25 17:55 Consult Urology Routine Procedures Performed Operation Date: 04/01/25 12:20 Actual Procedures p Cystoscopy, Left Ureteral Stent Placement(Left) - Almas Royal MD Hospital Course (1) Acute left flank pain: Patient has a history of recurrent kidney stones. Presents to the hospital on account of acute left flank pain. Found to have an obstructing 6 mm stone in the left ureter He is now s/p cystoscopy, retrograde pyelogram and left ureteral stent placement Discharge home per urology, outpatient follow up for stent mgt add flomax and Pyridium to discharge regimen (2) Ureterolithiasis: History of kidney stones as above According to the patient, since he has a passed 100s of stones (3) CAD, multiple vessel: Status post stents x 2 On Plavix and aspirin at home Hold Plavix in view of possible urological procedure (4) CAD (coronary artery disease): (5) Stenosis of right subclavian artery: (6) Renal artery stenosis: Plan Admit to [facility] Full code Coding Level of Care Code 43795 INP/OBS DISCH >30 MIN Diagnoses Acute left flank pain R10.9 Ureterolithiasis N20.1 CAD, multiple vessel I25.10 CAD (coronary artery disease) I25.10 Stenosis of right subclavian artery I77.1 Renal artery stenosis I70.1 Time Spent (min) 35
[2025-04-02] MEDS ORDERED: HYDROmorphone INJ 0.5 MG/0.5 ML SYR IV STA (11:43)
== END 2025-04-02 12:50 | disposition home or self-care (01) | DRG 661 ==
LOC: ED 11:48 → 3N 16:20